=== PATIENT | female | born 1935 | race Caucasian/White ===

== ENCOUNTER 2016-09-10 10:34 | Observation (INO) | payer BC, OTHER ==
[~2016-09-10] VITALS: Ht 167.6 cm; Wt 60.5 kg
[~2016-09-10 10:34] MED LIST: ASPI-435 PO; ATOR-22 PO; CHOL100010 PO; ESTR1CRE PV; METO25TA56 PO; MULT-884 PO; NTRGSL/4 UT; NXM/40 PO; [UNRECOGNIZED DRUG - OTHER] OPB
[2016-09-10] MEDS ORDERED: NITROGLYCERIN OINT 2% 1GM PACKET EXT ONE (11:15)
[2016-09-10 11:23] LABS: BASO % 0.8 %; BASO ABS # 0.04 K/uL (0-0.2); COMPLETE YES; EOS % 4.3 %; HEMATOCRIT 42.2 % (37-47); IG% 0.2 %; LYMPH % 25.4 %; LYMPH ABS # 1.31 K/uL (1.2-3.4); MEAN CELL VOLUME 91.5 fL (80-100); MEAN CORPUSCULAR HEMOGLOBIN 31.2 pg (25-34); MEAN CORPUSCULAR HGB CONC 34.1 g/dl (32-36); MEAN PLATELET VOLUME 12.5 fL (7.4-10.4); MONO % 10.3 %; PLATELET COUNT 152 K/uL (130-400); RED BLOOD COUNT 4.61 M/uL (4.2-5.4); WHITE BLOOD COUNT 5.15 K/uL (4.8-10.8)
[2016-09-10 11:30] LABS: CALCIUM 9.5 mg/dl (8.5-10.1); CREATININE 0.63 mg/dl (0.60-1.20)
[2016-09-10 11:32] LABS: INR 1.1 (0.9-1.1); PROTHROMBIN TIME (PATIENT) 11.3 SECONDS (9.0-12.0)
--- NOTE | 2016-09-10 11:48 | DIAGNOSTIC IMAGING REPORT ---
SINGLE VIEW CHEST CLINICAL HISTORY: Atypical chest pain. FINDINGS: 2 AP, portable, upright chest radiographs are compared to study dated 02/27/2016. The examination is degraded by portable technique and patient rotation. The heart is enlarged and there is atherosclerotic calcification of the thoracic aorta. The pulmonary vasculature is noncongested. Emphysema is suspected. Chronic interstitial thickening is similar to previous. No airspace consolidation or large pleural effusion is identified. No pneumothorax is seen. The skeletal structures are osteopenic. Degenerative changes noted throughout the thoracic spine. IMPRESSION: Cardiomegaly and suspect emphysema. There is no acute cardiopulmonary abnormality. Electronically signed by: Sylvester Churchill M.D. 09/10/2016 11:47 AM Dictated Date/Time: 09/10/2016 11:46 AM
[2016-09-10] MEDS ORDERED: AMLO2.5T PO (11:56)
[2016-09-10] MEDS ORDERED: CHOL1000 PO (11:56)
[2016-09-10] MEDS ORDERED: PRMVC PV (11:56)
--- NOTE | 2016-09-10 12:41 | History and Physical ---
History & Physical Date & Time of Service: Sep 10, 2016 at 12:30 Chief Complaint: Chest Pain Primary Care Physician: Stalin Hernandez History of Present Illness Source: patient This is a 81 yo F with PMHx with hyperlipidemia, HTN, CAD, diverticulitis, who presents with chest pain from [facility]. Pt reports she was at an exercise class this morning at 0915 and during this class was lifting a 4lb bar above her head, moving it back and forth when she acutely developed substernal chest pain at ~0945 which lasted about 15 minutes. Pain radiated up her right side of chest and wrapped around to the back of her neck to the base of her head. She has experienced this pain before but notes it wasn't this severe in the past. She left the class and went to see the nurse in [facility] who checked an EKG showing her old LBBB. She admits to nausea at that time during the pain. Denies any shortness of breath, lightheadedness, dizziness or palpitations. The patient was transported to the ED and her pain resolved prior to getting nitro tab. She denies any pain currently. Pt notes this was the second exercise class she has done in the past 6 months due to caring for her . Pt is currently grieving the loss of her who on . She reports feeling anxious about this. Has a good support system in place. In the ED the first troponin is negative, WBC is WNL, BMP is also WNL with mildly low glucose at 63. EKG is showing chronic BBB but is NSR without acute ST abnormalities. Vitals are currently stable with noted labile blood pressures up to 168/83 while at bedside. Past Medical/Surgical History Medical Problems: (1) Diverticulitis Status: Resolved Surgical Problems: (1) H/O cardiac catheterization Status: Resolved (2) History of cholecystectomy Status: Resolved (3) Hx of arthroscopic knee surgery Status: Resolved Family History Patient reports no known family medical history. Social History Smoking Status: Former Smoker Smokeless Tobacco Use: No Alcohol Use: none Drug Use: none Marital Status: Housing status: assisted living ([facility]) Occupational Status: retired Immunizations History of Influenza Vaccine: Yes History of Pneumococcal: Yes Multi-Drug Resistant Organisms History of MDRO: No Allergies Coded Allergies: Clarithromycin (Verified Allergy, Unknown, UNKNOWN, 09/10/16) Codeine (Verified Adverse Reaction, Intermediate, SEVERE NAUSEA, 09/10/16) Home Medications Scheduled Amlodipine (Norvasc), Unknown Dose PO DAILY Aspirin (Aspirin 81), 81 MG PO DAILY Atorvastatin (Lipitor), 20 MG PO DAILY Betaxolol HCl (Betoptic-S), 1 DROP OPB BID Cholecalciferol (Vitamin D3), 1 TAB PO DAILY Esomeprazole Magnesium (Nexium), 40 MG PO DAILY Estrogens, Conjugated (Premarin), 0.5 GM PV 2XWK Metoprolol Tartrate (Lopressor) (Lopressor), 12.5 MG PO BID Multiple Vitamin (Multi Vitamin Daily), 1 TAB PO DAILY Scheduled PRN Nitroglycerin (Nitrostat), 0.4 MG UT PRN PRN for Chest Pain Review of Systems Constitutional: No chills, No fever, No sweats Eyes: No problem reported ENT: No problem reported Respiratory: No dyspnea at rest, No dyspnea on exertion, No shortness of breath Cardiovascular: + chest pain (see HPI) Abdomen: + nausea, No constipation, No diarrhea, No pain, No vomiting Musculoskeletal: No calf pain, No joint pain, No swelling Genitourinary - Female: No dysuria Neurologic: No memory loss, No paralysis, No weakness Endocrine: No fatigue Integumentary: No rash Physical Exam Vital Signs Date Time Temp Pulse Resp B/P Pulse Ox O2 Delivery O2 Flow Rate FiO2 09/10/16 11:47 64 18 135/74 98 Room Air 09/10/16 10:37 71 09/10/16 10:35 98 Room Air 09/10/16 10:35 98 Room Air 09/10/16 10:35 36.9 69 18 159/73 98 Room Air General Appearance: WD/WN, no apparent distress, + thin Head: normocephalic, atraumatic Eyes: PERRL, EOMI ENT: hearing grossly normal, pharynx normal Neck: supple, no JVD Respiratory/Chest: lungs clear, normal breath sounds, no respiratory distress, no accessory muscle use, + pertinent finding (on room air) Cardiovascular: regular rate, rhythm, no JVD, normal peripheral pulses Abdomen/GI: normal bowel sounds, non tender, soft Back: normal inspection Extremities/Musculoskelatal: normal inspection, no calf tenderness, no pedal edema Neurologic/Psych: alert, normal mood/affect, oriented x 3 Skin: normal color, warm/dry Diagnostics Laboratory Results Results Past 24 Hours Test 09/10/16 10:20 09/10/16 11:16 Range/Units White Blood Count 5.15 4.8-10.8 K/uL Red Blood Count 4.61 4.2-5.4 M/uL Hemoglobin 14.4 12.0-16.0 g/dL Hematocrit 42.2 37-47 % Mean Corpuscular Volume 91.5 80-100 fL Mean Corpuscular Hemoglobin 31.2 25-34 pg Mean Corpuscular Hemoglobin Concent 34.1 32-36 g/dl Platelet Count 152 130-400 K/uL Mean Platelet Volume 12.5 7.4-10.4 fL Neutrophils (%) (Auto) 59.0 % Lymphocytes (%) (Auto) 25.4 % Monocytes (%) (Auto) 10.3 % Eosinophils (%) (Auto) 4.3 % Basophils (%) (Auto) 0.8 % Neutrophils # (Auto) 3.04 1.4-6.5 K/uL Lymphocytes # (Auto) 1.31 1.2-3.4 K/uL Monocytes # (Auto) 0.53 0.11-0.59 K/uL Eosinophils # (Auto) 0.22 0-0.5 K/uL Basophils # (Auto) 0.04 0-0.2 K/uL RDW Standard Deviation 42.5 36.4-46.3 fL RDW Coefficient of Variation 12.7 11.5-14.5 % Immature Granulocyte % (Auto) 0.2 % Immature Granulocyte # (Auto) 0.01 0.00-0.02 K/uL Prothrombin Time 11.3 9.0-12.0 SECONDS Prothromb Time International Ratio 1.1 0.9-1.1 Activated Partial Thromboplast Time 26.6 21.0-31.0 SECONDS Partial Thromboplastin Ratio 1.0 Sodium Level 143 136-145 mmol/L Potassium Level 4.0 3.5-5.1 mmol/L Chloride Level 105 98-107 mmol/L Carbon Dioxide Level 31 21-32 mmol/L Anion Gap 7.0 3-11 mmol/L Blood Urea Nitrogen 23 7-18 mg/dl Creatinine 0.63 0.60-1.20 mg/dl Est Creatinine Clear Calc Drug Dose 63.3 ml/min Estimated GFR () 96.1 Estimated GFR (Non- 82.9 BUN/Creatinine Ratio 37.0 10-20 Random Glucose 65 70-99 mg/dl Calcium Level 9.5 8.5-10.1 mg/dl Bedside Troponin I 0.000 0-0.045 ng/ml Diagnostic Radiology SINGLE VIEW CHEST CLINICAL HISTORY: Atypical chest pain. FINDINGS: 2 AP, portable, upright chest radiographs are compared to study dated 02/27/2016. The examination is degraded by portable technique and patient rotation. The heart is enlarged and there is atherosclerotic calcification of the thoracic aorta. The pulmonary vasculature is noncongested. Emphysema is suspected. Chronic interstitial thickening is similar to previous. No airspace consolidation or large pleural effusion is identified. No pneumothorax is seen. The skeletal structures are osteopenic. Degenerative changes noted throughout the thoracic spine. IMPRESSION: Cardiomegaly and suspect emphysema. There is no acute cardiopulmonary abnormality. Electronically signed by: Sylvester Churchill M.D. 09/10/2016 11:47 AM Dictated Date/Time: 09/10/2016 11:46 AM The status of this report is Signed. EKG Vent. rate 70 BPM UT interval 206 ms QRS duration 156 ms QT/QTc 468/505 ms P-R-T axes 52 -53 100 NSR, Left BBB, no acute ischemic changes or ST wave inversions. Impression Assessment and Plan This is a 81 yo F with PMHx with hyperlipidemia, HTN, CAD, diverticulitis, who presents with chest pain from [facility]. Pt reports she was at an exercise class this morning at 0915 and during this class was lifting a 4lb bar above her head and moving it back and forth when she acutely developed substernal chest pain which lasted about 15 minutes. Chest Pain - Admit for tele Observation - 1st trop is negative, will trend x 2 more sets along with Ckmb - Received records from [facility] regarding last stress echo done on 04/18/16 which showed preserved EF 55-59%, concentric LV,left ventricular diastolic function is mildly abnormal (grade 1), moderate jason annular calcification. Mild MR and mild TR. No pulmonary hypertension. Mild aortic valve sclerosis is present. - Follows with Dr. Muir as an outpt every 6 months - Had CABG done in the 1980s for chest pain which was found to be due to gallbladder issues - pt is s/p cholecystectomy. No stents were placed. - Pain resolved after 15 minutes, got a nitro tablet AFTER her pain resolved. Pain is not reproducible on exam. Pt is not currently complaining of chest pain. 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 The patient has been followed for labile BP as an outpatient, so here this is not necessarily something new. Hyperlipidemia - Cont statin daily DVT ppx: OOB, SCDs, lovenox sq CODE STATUS: FULL CODE Disposition: From [facility], likely discharge tomorrow. Addendum at 14:30 Pt is requesting to leave from the ED as she reports feeling fine. Point of Care troponin in process. If negative then ED will discharge. Discussed with Dr. Cook and Dr. Gonzalez who are in agreement with this plan. Level of Care Telemetry Resuscitation Status FULL RESUSCITATION VTE Prophylaxis VTE Risk Assessment Done? Y/N: Yes Risk Level: Low Given or contraindicated: Enoxaparin (Lovenox)SQ, SCD's Reviewed: Pt Seen/Exam by Me, MAGALI Notes, Labs, RAD, EKG History Resident Physician Supervision Note: I interviewed and examined the patient. Discussed with VINCE Trinidad and agree with findings and plan as documented in the note. Any exceptions or clarifications are listed here: Agree with above HPI and history as reconfirmed with pt. CP was "piercing" in nature and lasted 15 min. No associated symptoms. Currently with no CP but feels anxious and feels fine. I think she could be sent home but could stay for observation to ensure no further chest pain as was a bit atypical in that it went away as she was continuing to exert herself while walking to the RN at [facility]. All labs/rads/ECG personally viewed. Vitals reviewed NAD, AAOx3 Anicteric sclerae RRR no mgr nl S1S2, no carotid bruits No neck tenderness and with FROM of neck No ttp of chest wall, no reproducible pain with raising arms above shoulders CTAB no wcr Abd soft NT ND +BS Ext no edema, noc doretha tenderness, 2+ DP pulses Skin no rashes A/P: 81 yo female with a h/o HTN, dyslipidemia, ?CAD listed in records from Cardiology but NO h/o CABG as above (had cardiac cath done decades ago after having an abnl stress test), here with atypical CP. -rule out with serial troponins -observe on tele -Consult her Court Registry Officer for furher recommendations but just had stress ECHO 2015 that was normal -continue home meds and adjust if BP remains elevated -expect dc to home tomorrow Lovenox for DVT proph Documented By: Maya Cook
[2016-09-10] MEDS ORDERED: NITROGLYCERIN 0.4 MG SL PER TAB CHARGE SL PRN (14:00)
[2016-09-10] MEDS ORDERED: ONDANSETRON INJ 2 MG/ML 2 ML VIAL IV PRN (14:00)
[2016-09-10] MEDS ORDERED: ACETAMINOPHEN 325 MG TAB PO PRN (14:00)
[2016-09-10] MEDS ORDERED: POLYETHYLENE (MIRALAX) 17 GM PACK PO PRN (14:00)
[2016-09-10] MEDS ORDERED: NITROGLYCERIN 0.4 MG SL PER TAB CHARGE UT PRN (14:00)
[2016-09-10] MEDS ORDERED: ENOXAPARIN 30 MG/0.3 ML SYR SQ SCH ×2 (14:15→21:00)
[2016-09-10 14:34] VITALS: O2SAT 98; Ht 167.6 cm; Wt 60.5 kg
[2016-09-10] MEDS ORDERED: IV FLUIDS COMPLETED PRN (14:45)
[2016-09-10 17:42] VITALS: BP 147/67; PULSE 80; TEMP 36.7; O2SAT 94
--- NOTE | 2016-09-10 18:51 | EMERGENCY ROOM VISIT NOTE ---
History Report prepared by Elli: Gilma Cowart Under the Supervision of: Dr. Diallo Gonzalez M.D. First contact with patient: 11:06 Chief Complaint: CHEST PAIN Stated Complaint: CHEST PAIN Nursing Triage Summary: pt to room b2 via als from [facility]. pt reports she was exercising around 0945 and had a sudden onset of sharp substernal CP that radiated to right side of head, back, neck, face. pt denies hx of PA. pt takes ASA 81mg every other day. upon arrival pt reports that CP has been alleviated. denies any other complaints or symptoms. pt in no apparent distress. pt on metoprolol, and a statin. History of Present Illness The patient is an 81 year old female who presents to the Emergency Room via ALS from [facility] with complaints of resolved chest pain that started around 0945 this morning while exercising. She describes this as a sharp, "squeezing", pain that radiated up to the right side of her head. This lasted for about 15 minutes. Associated symptoms include nausea. The patient reports experiencing chest pain similar to this episode in the past. She mentions having a stress test performed a few years ago which was positive. She then had a cardiac catheterization but did not have any intervention done at that time. The patient takes ASA 81 mg every other day. She denies any additional symptoms including shortness of breath. She does mention that she recently lost her so she has been under a great deal of stress lately. She does state that her chest pain seems to be coming back now. Source of History: patient Onset: 0945 this morning Position: chest Quality: sharp, other ("squeezing") Timing: resolved Modifying Factors (Worsening): other (none) Associated Symptoms: + nausea, No SOB Review of Systems See HPI for pertinent positives & negatives. A total of 10 systems reviewed and were otherwise negative. Past Medical & Surgical Medical Problems: (1) Chest pain (2) Diverticulitis Surgical Problems: (1) H/O cardiac catheterization (2) History of cholecystectomy (3) Hx of arthroscopic knee surgery Family History Patient reports no known family medical history. Social History Smoking Status: Former Smoker Marital Status: single Housing Status: other Occupation Status: employed Current/Historical Medications Scheduled Amlodipine (Norvasc), Unknown Dose PO DAILY Aspirin (Aspirin 81), 81 MG PO DAILY Atorvastatin (Lipitor), 20 MG PO DAILY Betaxolol HCl (Betoptic-S), 1 DROP OPB BID Cholecalciferol (Vitamin D3), 1 TAB PO DAILY Esomeprazole Magnesium (Nexium), 40 MG PO DAILY Estrogens, Conjugated (Premarin), 0.5 GM PV 2XWK Metoprolol Tartrate (Lopressor) (Lopressor), 12.5 MG PO BID Multiple Vitamin (Multi Vitamin Daily), 1 TAB PO DAILY Scheduled PRN Nitroglycerin (Nitrostat), 0.4 MG UT PRN PRN for Chest Pain Allergies Coded Allergies: Clarithromycin (Verified Allergy, Unknown, UNKNOWN, 09/10/16) Codeine (Verified Adverse Reaction, Intermediate, SEVERE NAUSEA, 09/10/16) Physical Exam Vital Signs Date Time Temp Pulse Resp B/P Pulse Ox O2 Delivery O2 Flow Rate FiO2 09/10/16 13:35 62 09/10/16 12:55 64 15 168/83 98 Room Air 09/10/16 11:47 64 18 135/74 98 Room Air 09/10/16 10:37 71 09/10/16 10:35 98 Room Air 09/10/16 10:35 98 Room Air 09/10/16 10:35 36.9 69 18 159/73 98 Room Air Physical Exam Constitutional: Vital signs reviewed. Eyes: Pupils are equal round reactive to light. Conjunctiva are noninjected. ENT: Pharynx is clear without erythema or exudate. Mucous membranes are moist. Neck supple without meningeal signs. Respiratory: Clear to auscultation bilaterally. Breath sounds are equal bilaterally. Cardiovascular: Regular rate and rhythm. No rubs or gallops. GI: Soft, nondistended and nontender. Bowel sounds are present. Musculoskeletal: No peripheral edema. Integumentary: No cyanosis. Neurological: The patient is awake and alert. No focal deficits. Psychiatric: Normal affect. Medical Decision & Procedures ER Provider Diagnostic Interpretation: X-ray results as stated below per interpretation by me and the radiologist: SINGLE VIEW CHEST CLINICAL HISTORY: Atypical chest pain. FINDINGS: 2 AP, portable, upright chest radiographs are compared to study dated 02/27/2016. The examination is degraded by portable technique and patient rotation. The heart is enlarged and there is atherosclerotic calcification of the thoracic aorta. The pulmonary vasculature is noncongested. Emphysema is suspected. Chronic interstitial thickening is similar to previous. No airspace consolidation or large pleural effusion is identified. No pneumothorax is seen. The skeletal structures are osteopenic. Degenerative changes noted throughout the thoracic spine. IMPRESSION: Cardiomegaly and suspect emphysema. There is no acute cardiopulmonary abnormality. Electronically signed by: Sylvester Churchill M.D. 09/10/2016 11:47 AM Dictated Date/Time: 09/10/2016 11:46 AM Laboratory Results 09/10/16 10:20 Red Blood Count 4.61, Mean Corpuscular Volume 91.5, Mean Corpuscular Hemoglobin 31.2, Mean Corpuscular Hemoglobin Concent 34.1, Mean Platelet Volume 12.5, Neutrophils (%) (Auto) 59.0, Lymphocytes (%) (Auto) 25.4, Monocytes (%) (Auto) 10.3, Eosinophils (%) (Auto) 4.3, Basophils (%) (Auto) 0.8, Neutrophils # (Auto ) 3.04, Lymphocytes # (Auto) 1.31, Monocytes # (Auto) 0.53, Eosinophils # (Auto ) 0.22, Basophils # (Auto) 0.04 09/10/16 10:20 Test 09/10/16 10:20 09/10/16 11:16 White Blood Count 5.15 K/uL (4.8-10.8) Red Blood Count 4.61 M/uL (4.2-5.4) Hemoglobin 14.4 g/dL (12.0-16.0) Hematocrit 42.2 % (37-47) Mean Corpuscular Volume 91.5 fL (80-100) Mean Corpuscular Hemoglobin 31.2 pg (25-34) Mean Corpuscular Hemoglobin Concent 34.1 g/dl (32-36) Platelet Count 152 K/uL (130-400) Mean Platelet Volume 12.5 fL (7.4-10.4) Neutrophils (%) (Auto) 59.0 % Lymphocytes (%) (Auto) 25.4 % Monocytes (%) (Auto) 10.3 % Eosinophils (%) (Auto) 4.3 % Basophils (%) (Auto) 0.8 % Neutrophils # (Auto) 3.04 K/uL (1.4-6.5) Lymphocytes # (Auto) 1.31 K/uL (1.2-3.4) Monocytes # (Auto) 0.53 K/uL (0.11-0.59) Eosinophils # (Auto) 0.22 K/uL (0-0.5) Basophils # (Auto) 0.04 K/uL (0-0.2) RDW Standard Deviation 42.5 fL (36.4-46.3) RDW Coefficient of Variation 12.7 % (11.5-14.5) Immature Granulocyte % (Auto) 0.2 % Immature Granulocyte # (Auto) 0.01 K/uL (0.00-0.02) Prothrombin Time 11.3 SECONDS (9.0-12.0) Prothromb Time International Ratio 1.1 (0.9-1.1) Activated Partial Thromboplast Time 26.6 SECONDS (21.0-31.0) Partial Thromboplastin Ratio 1.0 Anion Gap 7.0 mmol/L (3-11) Est Creatinine Clear Calc Drug Dose 63.3 ml/min Estimated GFR () 96.1 Estimated GFR (Non- 82.9 BUN/Creatinine Ratio 37.0 (10-20) Calcium Level 9.5 mg/dl (8.5-10.1) Bedside Troponin I 0.000 ng/ml (0-0.045) Laboratory results as reviewed by me. ECG Indication: chest pain Rate (beats per minute): 70 Rhythm: normal sinus Findings: LBBB, no ectopy Comparison ECG Date: September 26, 2005 Change: LBBB is old. ED Course 1110: The patient was evaluated in room B2. A complete history and physical exam was performed. 1115: Nitroglycerin 0.5 inch EXT. 1151: The patient's blood pressure has improved. She is no longer experiencing chest discomfort. Nitro order will be canceled. I discussed the results thus far with the patient. She is agreeable at this time. 1157: I spoke with Ceci Reed (Ivonne) of [facility]. We discussed the patient and her results. The patient will be further evaluated. 1206: The patient will be switched to [facility]'s service. 1216: I spoke with Dr. Yanes of [facility]. We discussed the patient and her results. The patient will be further evaluated by Dr. Yanes. 1240: I discussed the patient's case with Arelis Taylor (IVONNE). She does not believe the patient needs to be hospitalized at this time. I did not feel comfortable sending this patient home given her symptoms. Dr. Cook ([facility]) will evaluate the patient. 1300: I talked to B2 and explained the reasons I wish to keep her. We will be repeating the POC troponin and waiting for Dr. Cook to evaluate. 1500: Dr. Cook will evaluate the patient for further management and care. Medical Decision This is an 81-year-old female presents with chest pain. Differential diagnosis includes unstable angina, PA, GERD, anxiety, pneumonia. I did perform a limited focused review of portions of the patient's old chart on the electronic medical record. The patient has had no recent pertinent visits to this hospital. I did evaluate the patient as noted above. The patient is presenting with chest pain which she describes as a squeezing pain in the right side of her chest rating up to her neck. It started while she was doing some mild exercise. She also states she has been under significant stress due to her recently passing away. She currently complains of some mild squeezing pain that has recently come back while in the emergency department. IV access was established. The patient was placed on a continuous vehicle monitor technician. She is slightly hypertensive. I did order nitroglycerin paste for the patient but when the nurse went to put it on her she stated that her chest pain had resolved and her blood pressure was improved so I canceled the order. I did order and personally review the patient's 12-lead EKG and chest x-ray as described above. I did order and review the patient's blood work as noted in the electronic medical record. Her troponin is negative. I did reassess the patient. She is not having any chest pain at this time. Due to the description of her chest discomfort, her risk factors and its onset with exertion I did feel she should be hospitalized for further evaluation or repeat cardiac enzymes. I did discuss case with the hospitalist and correctional case records supervisor. Consults Time Called: 1150 Consulting Physician: Ceci Snow) Returned Call: 1157 I spoke with Ceci Snow) of [facility]. We discussed the patient and her results. The patient will be further evaluated. Additional Consults: Time Called: 1206 Consulted Physician: Dr. Yanes ([facility]) Returned Call: 1212 Additional Comments: I spoke with Dr. Yanes of [facility]. We discussed the patient and her results. The patient will be further evaluated by Dr. Yanes. Impression Primary Impression: Exertional chest pain Scribe Attestation The scribe's documentation has been prepared under my direct and personally reviewed by me in its entirety. I confirm that the note above accurately reflects all work, treatment, procedures, and medical decision making performed by me. Departure Information Dispostion Being Evaluated By Hospitalist Referrals Stalin Hernandez (PCP) Patient Instructions My [facility]
[2016-09-10] MEDS: BETAXOLOL HCL 0.25% OPB SCH (19:28)
[2016-09-10] MEDS: METOPROLOL TARTRATE 25 MG TAB PO SCH (19:30)
[2016-09-10 19:35] VITALS: BP 147/70; PULSE 65; TEMP 36.8; O2SAT 94
[2016-09-10 23:59] VITALS: BP 137/71; PULSE 63; TEMP 36.7; O2SAT 97
[2016-09-11 05:02] VITALS: BP 141/69; PULSE 76; TEMP 36.4; O2SAT 95
[2016-09-11 07:45] VITALS: BP 135/74; PULSE 75; TEMP 36.8; O2SAT 96
[2016-09-11 08:00] VITALS: O2SAT 96
[2016-09-11] MEDS ORDERED: CHOLECALCIFEROL 1000 INTER.UNIT TAB PO SCH (09:00)
[2016-09-11] MEDS ORDERED: AMLODIPINE BESYLATE 5 MG TAB PO SCH (09:00)
[2016-09-11] MEDS ORDERED: ATORVASTATIN 20 MG TAB PO SCH (09:00)
[2016-09-11] MEDS ORDERED: ASPIRIN 81 MG ECTAB PO SCH ×2 (09:00)
[2016-09-11] MEDS ORDERED: MULTIVITAMIN TAB PO SCH (09:00)
[2016-09-11 09:40] VITALS: BP 130/60; PULSE 72
[2016-09-11] MEDS: METOPROLOL TARTRATE 25 MG TAB PO SCH (09:41)
[2016-09-11] MEDS: BETAXOLOL HCL 0.25% OPB SCH (09:42)
--- NOTE | 2016-09-11 11:43 | Cardiology Consultation ---
Cardiology Consultation Cardiology Consultation: Date: 09/11/16 Attending Shim Plug Cutter: Dr. Maxwell Requesting Provider: Dr. Cook HPI: Patient is an 81-year-old female who follows with Dr. Alena Muir of [facility] cardiology on a routine basis for history of non obstructive CAD per remote cath in 2002, with most recent exercise stress echo in 03/2016, negative for ischemia at 83% MPHR (prior intolerance of lexiscan nuclear studies noted), chronic LBBB, labile hypertension, and dyslipidemia. Over the last year she has been primary president [place] of her ill . Unfortunately he in July 2016 of extended illness. She notes significant stress and anxiety over the last years time. Yesterday she decided to go back to her exercise class at [facility] where she resides. She was lifting 4 lb weights over her head and felt sudden onset stabbing substernal chest pain that radiated to neck and back of her head. She stopped exercising and went to nurse/healthcare clinic onsite. They did EKG which demonstrated LBBB (chronic) and sent her to ER due to symptoms. She admits to feeling nauseous while walking to the health clinic but no worsening symptoms. She denied SOB or palpitations at the time. She said symptoms resolved spontaneously after 10-15 minutes. By the time she reached ER she had no pain or recurrent symptoms. EKG was completed which demonstrated NSR with LBBB, chronic and unchanged. Cardiac enzymes were unremarkable. Patient was admitted for observation. AT time of consult, patient sitting up in chair feeling well. Anxious to go home. Echo pending. Denies recurrent symptoms since admission. She denies recent chest pain or worsening dyspnea. She notes mild dyspnea when climbing a hill every night from dining cronin to her apartment, but this is unchanged and symptoms resolve quickly. No exertional chest pain until this episode yesterday. Review of Systems: See HPI for pertinent positives. All other 10 point review of systems is negative. PMH: 1. LBBB 2. Mild non obstructive coronary disease per remote cath in 2002 3. Intolerance to lexiscan nuclear stress test 4. Non ischemic exercise stress echo 03/2016 5. Anxiety 6. GERD 7. Hypertension Surgical History: KNEE ARTHROSCOPY, DIAGNOSTIC 1994 Right REMOVE TONSILS & ADENOIDS, UNDER 10 age 4 SIGMOIDOSCOPY, DIAGNOSTIC 02/18/99 Normal - Dr Zeke saini 5 yrs CYSTOSCOPY [facility] BONE DENSITY PERIPH-NON [facility] 01/21/00 Normal - q 3 yrs LAPAROSCOPY; CHOLECYSTECTOMY 12/01/02 Cholecystectomy, Laparoscopic CATARACT SURGERY,COMPLEX Social History: Recently . Lives at [facility]. Remote tobacco abuse. No alcohol use. Family History: non contributory due to advanced age ALLERGIES: Review of patient's allergies indicates: -- Morphine And Related --Clarithromycin Reported Home Medications Medications Dose Route/Sig Max Daily Dose Days Date Category Norvasc (Amlodipine Besylate) 2.5 Mg Tab Unknown Dose PO DAILY 09/10/16 Reported Premarin (Estrogens, Conjugated) 14 Appln/30 Gm Cr 0.5 Gm PV 2XWK 09/10/16 Reported Vitamin D3 (Cholecalciferol) 1,000 Unit Tab 1 Tab PO DAILY 09/10/16 Reported Aspirin 81 (Aspirin) 81 Mg Tab 81 Mg PO DAILY 02/27/16 Reported Betoptic-S (Betaxolol HCl) 0.25 % Jocelyn 1 Drop OPB BID 02/27/16 Reported Nexium (Esomeprazole Magnesium) 40 Mg Cap 40 Mg PO DAILY 02/27/16 Reported Lopressor (Metoprolol Tartrate) 25 Mg Tab 12.5 Mg PO BID 02/27/16 Reported Lipitor (Atorvastatin Calcium) 20 Mg Tab 20 Mg PO DAILY 02/27/16 Reported Nitrostat (Nitroglycerin) 0.4 Mg Tab 0.4 Mg UT PRN PRN 02/27/16 Reported Multi Vitamin Daily (Multiple Vitamin) 1 Tab Tab 1 Tab PO DAILY 02/27/16 Reported PHYSICAL EXAMINATION: Last 8 Hrs Date Time Temp Pulse Resp B/P Pulse Ox O2 Delivery O2 Flow Rate FiO2 09/11/16 07:45 36.8 75 16 135/74 96 Room Air 09/11/16 05:02 36.4 76 20 141/69 95 Room Air 09/11/16 04:00 Room Air GEN: A+Ox3. NAD. HEENT exam is normocephalic and atraumatic. Nares without discharge. Throat was clear. Neck was without thyromegaly, lymphadenopathy, jugular venous distention, or bruit. Lungs are clear to auscultation. Cardiovascular exam is regular with a grade I/ systolic murmur. There is no diastolic murmur. Abdomen: Soft, nontender. Extremities are without cyanosis or clubbing. There is no peripheral edema. DATA: EKG on admission: Normal sinus rhythm Possible Left atrial enlargement Left axis deviation Left bundle branch block Abnormal ECG When compared with ECG of 26-SEP-2005 13:31, No significant change was found Chest xray on admission: IMPRESSION: Cardiomegaly and suspect emphysema. There is no acute cardiopulmonary abnormality. Telemetry reviewed - NSR, rare PVC, PAC. No concerning arrhythmias. Exercise Stress echo completed at in Mar 2016, per interpretation Interpretation Summary No evidence of inducible ischemia 83% of the maximal, age predicted target heart rate. Exercise stopped due to shortness of breath and chest tightness. Uninterpretable Stress EKG due to repolarization changes of Left bundle branch block. Exercise capacity is below average . Resting Study: The qualitative LV ejection fraction is 55-59% (normal). The LV wall thickness is moderately increased (concentric). The left ventricular diastolic function is mildly abnormal (grade I). There is moderate mitral annular calcification. Mild mitral regurgitation is present. Mild tricuspid regurgitation is present. There is no evidence of pulmonary hypertension Mild aortic valve sclerosis is present. Stress nuclear imaging, September 2015, demonstrated equivocal findings. Inferolateral abnormality not completely excluded in setting of acute adverse reaction to drug therapy. ASSESSMENT: 1. Chest pain, resolved and without recurrence -EKG non diagnostic and unchanged with LBBB -Negative cardiac enzymes x3 -echocardiogram pending -negative exercise stress test in 03/2016 -discussed with patient. She is anxious to go home. IF echo is unremarkable, recommend discharge and f/u with Dr. Muir as outpatient. 2. Hypertension -continue metoprolol and amlodipine. Case discussed with Dr. Maxwell. Will follow. (Teresita Ludwig PA-C) CARDIOLOGY ATTENDING ADDENDUM: The patient was seen and personally examined. Agree with Teresita Ludwig PA-C's findings and plans as documented above. Pt. cardiac markers are negative. I just reviewed her echo and there is nothing new. I think she can be d/c to outpatient follow-up with Dr. Muir. (Aime Maxwell, )
--- NOTE | 2016-09-11 13:31 | Discharge Instructions ---
Discharge Instructions Admission Reason for Admission: Chest Pain (Arleen Sparks PA-C) Discharge Discharge Diagnosis / Problem: Non-Cardiac Chest Pain (Arlene Sparks PA-C) Discharge Goals Goal(s): Decrease discomfort, Improve function, Increase independence (Arlene Sparks PA-C) Activity Recommendations Activity Level: Up Ad Priscilla . (Arlene Sparks PA-C) Additional Information Patient informed of condition: Yes Advance Directives: Yes DNR: No Level of Care: Other Communicable Disease: No Prognosis: Improving Blancas Catheter: No (Arlene Sparks PA-C) Instructions / Follow-Up Instructions / Follow-Up Chest Pain: - While admitted we tested your blood for elevations in cardiac enzymes that would suggest damage to your heart. These enzymes are negative and does not appear that your heart was the cause of this pain. - You underwent an echocardiogram that looks at the function of your heart. There were no abnormalities seen on this test. - Your heart rhythm overnight did not show any abnormal heart rhythm while you were monitored. - Continue taking your home medication as prescribed. We did not make any dosage adjustments or add any medications at this time. - This as well may be heartburn related as you mentioned it has mimicked your heartburn in the past. You have not had a reoccurrence of this chest pain since admission. - As well, you do have a prescription for nitroglycerin to take. If you do have chest pain take this medication and call 911. You may use this medication every 5 minutes as needed Follow-Up: - Please follow-up with your customer service and sales consultant Dr. Muir. They will contact you to set up your next appointment Reasons to Return: - Please return to the hospital if you do develop further chest pain or pain that radiates into the arms or jaw. (Arlene Sparks PA-C) Current Hospital Diet Patient's current hospital diet: AHA Diet (Heart Healthy) (Arlene Sparks PA-C) Discharge Diet Recommended Diet: AHA Diet (Heart Healthy) (Arlene Sparks PA-C) Pending Studies Studies pending at discharge: no (Arlene Sparks PA-C) Physician Orders On Transfer POLST Discussion: Not Applicable (Arlene Sparks PA-C) Medical Emergencies . Who to Call and When: Medical Emergencies: If at any time you feel your situation is an emergency, please call 911 immediately. . (Arlene Sparks PA-C) Non-Emergent Contact Non-Emergency issues call your: Primary Care Provider Call Non-Emergent contact if: you have a fever, your pain is concerning you, you have any medication questions . (Arlene Sparks PA-C) . "Provider Documentation" section prepared by Arlene Sparks. (Arlene Sparks, CARLINE) Core Measure Problem Core Measures: None (Arlene Sparks PA-C)
--- NOTE | 2016-09-11 14:01 | ECHOCARDIOGRAM REPORT ---
*NOTICE TO RECEIVING DEMOCRAT AGENCY This information is strictly Confidential and protected under [place] law. [place] law prohibits you from making any further disclosure of this information unless further disclosure is expressly permitted by the written consent of the person to whom it pertains or is authorized by law. A general authorization for the release of medical or other information is not sufficient for this purpose. Hospital accepts no responsibility if the information is made available to any other person, INCLUDING THE PATIENT. Interpretation Summary * Name: BRYNN TENA Study Date: 09/11/2016 01:35 PM BP: 130/60 mmHg * Patient Location: [facility]\S\N286\S\2 HR: 71 * : 1935 (M/d/yyy) Gender: Female Height: 66 in * Age: 81 yrs Ethnicity: [place] Weight: 133 lb * Ordering Physician: Teresita Ludwig * Referring Physician: Self, Referred * Performed By: Melanie Lara RCS * * Reason For Study: CHEST PAIN * BSA: 1.7 m2 * -- Conclusions -- * The left ventricle is normal in size. * There is moderate concentric left ventricular hypertrophy. * Left ventricular systolic function is normal. * Ejection Fraction = 50-55%. * The left ventricular wall motion is normal. * Grade I diastolic dysfunction, (abnormal relaxation pattern). * The left atrium is moderately dilated. * The right ventricular systolic function is normal. * The right atrium is mild to moderately dilated. * There is moderate mitral regurgitation. Procedure Details * A complete two-dimensional transthoracic echocardiogram was performed (2D, M-mode, Doppler and color flow Doppler). Left Ventricle * The left ventricle is normal in size. * There is moderate concentric left ventricular hypertrophy. * Ejection Fraction = 50-55%. * Left ventricular systolic function is normal. * The left ventricular wall motion is normal. Right Ventricle * The right ventricle is normal size. * The right ventricular systolic function is normal. Atria * The left atrium is moderately dilated. * The right atrium is mild to moderately dilated. * The interatrial septum is intact with no evidence for an atrial septal defect. Mitral Valve * There is moderate mitral annular calcification. * The mitral valve leaflets appear thickened, but open well. * There is moderate mitral regurgitation. Tricuspid Valve * The tricuspid valve anatomy is normal. * There is trace tricuspid regurgitation. Aortic Valve * The aortic valve is tricuspid. The leaflet thickness if normal. There is no aortic stenosis, and no significant insufficiency. * The aortic valve opens well. * There is no significant aortic regurgitation. Great Vessels * The aortic root and proximal ascending aorta are normal sized. Pericardium/Pleural * There is no pericardial effusion. Left Ventricular Diastolic Function * Grade I diastolic dysfunction, (abnormal relaxation pattern). MMode 2D Measurements and Calculations IVSd 1.3 cm IVSs 1.8 cm LVIDd 3.4 cm LVIDs 2.4 cm LVPWd 1.5 cm LVPWs 1.6 cm IVS/LVPW 0.88 FS 29.0 % EDV(Teich) 48.8 ml ESV(Teich) 21.1 ml EF(Teich) 56.8 % EDV(cubed) 40.8 ml ESV(cubed) 14.6 ml EF(cubed) 64.1 % % IVS thick 43.7 % % LVPW thick 9.7 % LV mass(C)d 162.9 grams LV mass(C)dI 96.8 grams/m\S\2 LV mass(C)s 157.9 grams LV mass(C)sI 93.9 grams/m\S\2 SV(Teich) 27.7 ml SI(Teich) 16.5 ml/m\S\2 SV(cubed) 26.1 ml SI(cubed) 15.5 ml/m\S\2 Ao root diam 3.4 cm Ao root area 9.0 cm\S\2 ACS 2.0 cm LA dimension 3.9 cm LA/Ao 1.2 LVOT diam 2.0 cm LVOT area 3.2 cm\S\2 LVAd ap4 27.2 cm\S\2 LVLd ap4 7.2 cm EDV(MOD-sp4) 82.6 ml EDV(sp4-el) 87.0 ml LVAs ap4 15.3 cm\S\2 LVLs ap4 5.8 cm ESV(MOD-sp4) 33.1 ml ESV(sp4-el) 34.6 ml EF(MOD-sp4) 59.9 % EF(sp4-el) 60.2 % LVAd ap2 24.8 cm\S\2 LVLd ap2 6.7 cm EDV(MOD-sp2) 76.5 ml EDV(sp2-el) 78.4 ml LVAs ap2 15.5 cm\S\2 LVLs ap2 6.3 cm ESV(MOD-sp2) 33.1 ml ESV(sp2-el) 32.4 ml EF(MOD-sp2) 56.7 % EF(sp2-el) 58.7 % LVLd %diff -8.89 % EDV(MOD-bp) 81.0 ml LVLs %diff 8.7 % ESV(MOD-bp) 33.5 ml EF(MOD-bp) 58.7 % SV(MOD-sp4) 49.5 ml SI(MOD-sp4) 29.4 ml/m\S\2 SV(MOD-sp2) 43.3 ml SI(MOD-sp2) 25.8 ml/m\S\2 SV(MOD-bp) 47.5 ml SI(MOD-bp) 28.3 ml/m\S\2 SV(sp4-el) 52.3 ml SI(sp4-el) 31.1 ml/m\S\2 SV(sp2-el) 46.0 ml SI(sp2-el) 27.3 ml/m\S\2 Doppler Measurements and Calculations MV E max beti 87.9 cm/sec MV A max beti 138.6 cm/sec MV E/A 0.63 MV P1/2t max beti 96.3 cm/sec MV P1/2t 80.5 msec MVA(P1/2t) 2.7 cm\S\2 MV dec slope 350.3 cm/sec\S\2 MV dec time 0.20 sec Ao V2 max 107.9 cm/sec Ao max PG 4.7 mmHg Ao max PG (full) 1.6 mmHg GREG(V,A) 2.6 cm\S\2 GREG(V,D) 2.6 cm\S\2 LV V1 max PG 3.1 mmHg LV V1 max 87.9 cm/sec MR max beti 508.7 cm/sec MR max PG 103.5 mmHg PA V2 max 88.3 cm/sec PA max PG 3.1 mmHg PI max beti 127.1 cm/sec PI max PG 6.5 mmHg PI dec slope 113.0 cm/sec\S\2 PI P1/2t 329.5 msec TR max beti 235.8 cm/sec
[2016-09-11 14:22] VITALS: BP 130/60; PULSE 72; TEMP 36.8; O2SAT 96
--- NOTE | 2016-09-11 15:28 | Discharge Summary ---
Discharge Summary Admission Date: Sep 10, 2016 at 14:01 Discharge Date: Sep 11, 2016 Discharge Disposition: Personal care Principal Diagnosis: Non-Cardiac Chest Pain Immunizations: Have You Had Influenza Vaccine: Yes History of Pneumococcal: Yes Procedures: 1. Echocardiogram -- EF 50-55% -- L and R mild-moderate atrial enlargement -- Moderate mitral regurgitation -- Grade I Diastolic Dysfunction Consultations: 1. Cardiology - Dr. Muir (Arlene Sparks, PA-C) Medication Reconciliation Continued Medications: Amlodipine (Norvasc) 2.5 Mg Tab Unknown Dose PO DAILY, TAB Aspirin (Aspirin 81) 81 Mg Tab 81 MG PO DAILY Atorvastatin (Lipitor) 20 Mg Tab 20 MG PO DAILY, TAB Betaxolol HCl (Betoptic-S) 0.25 % Jocelyn 1 DROP OPB BID Cholecalciferol (Vitamin D3) 1,000 Unit Tab 1 TAB PO DAILY, TAB 3 Refills Esomeprazole Magnesium (Nexium) 40 Mg Cap 40 MG PO DAILY, CAP Estrogens, Conjugated (Premarin) 14 Appln/30 Gm Cr 0.5 GM PV 2XWK Metoprolol Tartrate (Lopressor) (Lopressor) 25 Mg Tab 12.5 MG PO BID, TAB Multiple Vitamin (Multi Vitamin Daily) 1 Tab Tab 1 TAB PO DAILY Nitroglycerin (Nitrostat) 0.4 Mg Tab 0.4 MG UT PRN PRN for Chest Pain, BTL Discharge Exam Review of Systems: Constitutional: No chills, No fever ENT: No nasal symptoms, No sore throat, No trouble swallowing Respiratory: No cough, No shortness of breath Cardiovascular: No chest pain, No palpitations Abdomen: No constipation, No diarrhea, No nausea, No pain, No vomiting Musculoskeletal: No calf pain, No swelling Genitourinary - Female: No dysuria Neurologic: No vertigo, No weakness Endocrine: No fatigue Hematologic / Lymphatic: No abnormal bleeding/bruising, No clotting problems Integumentary: No rash Physical Exam: General Appearance: WD/WN, no apparent distress, + thin Eyes: sclerae normal ENT: hearing grossly normal Neck: supple, no JVD, trachea midline Respiratory/Chest: lungs clear, normal breath sounds, no respiratory distress, no accessory muscle use Cardiovascular: regular rate, rhythm, no gallop, no murmur Abdomen / GI: normal bowel sounds, non tender, soft Extremities: no calf tenderness, no pedal edema Neurologic/Psychiatric: alert, oriented x 3 Skin: normal color, warm/dry (Arlene Sparks PA-C) Hospital Course ADMISSION: This is a 81 yo F with PMHx with hyperlipidemia, HTN, CAD, diverticulitis, who presents with chest pain from [facility]. Pt reports she was at an exercise class this morning at 0915 and during this class was lifting a 4lb bar above her head, moving it back and forth when she acutely developed substernal chest pain at ~0945 which lasted about 15 minutes. Pain radiated up her right side of chest and wrapped around to the back of her neck to the base of her head. She has experienced this pain before but notes it wasn' t this severe in the past. She left the class and went to see the nurse in [facility] who checked an EKG showing her old LBBB. She admits to nausea at that time during the pain. Denies any shortness of breath, lightheadedness, dizziness or palpitations. The patient was transported to the ED and her pain resolved prior to getting nitro tab. She denies any pain currently. Pt notes this was the second exercise class she has done in the past 6 months due to caring for her . Pt is currently grieving the loss of her who on 08/14/16. She reports feeling anxious about this. Has a good support system in place. In the ED the first troponin is negative, WBC is WNL, BMP is also WNL with mildly low glucose at 63. EKG is showing chronic BBB but is NSR without acute ST abnormalities. Vitals are currently stable with noted labile blood pressures up to 168/83 while at bedside. HOSPITAL COURSE: Ms. Freeman was admitted for rhythm monitoring and enzymes trending. Patient has remained chest pain free during admission. Explains that this pain is very similar to the pain she gets with reflux. She was placed on the telemetry unit with rhythm revealing normal sinus rhythm with rare PVCs and PACs. Cardiac enzymes were trend and remained negative x 3. Blood pressure was monitored and was elevated at 140-160/70-80s. Patient does have routine follow- up as an outpatient with her investigations consultant. Last stress test performed in March 2016 and unremarkable. Consultation was placed to Dr. Muir and she was seen by Teresita Ludwig PA-C. Echocardiogram was ordered which revealed an EF of 50-55% with grade I diastolic dysfunction and mild-moderate R and L atrial enlargement with moderate mitral regurgitation. She is currently chest pain free and verbalizes no acute complaints. She is afebrile and stable and optimal for discharge to [facility]. She will be contacted by Dr. Muir's office for outpatient follow-up, appointment to be determined. Total Time Spent: Greater than 30 minutes This includes examination of the patient, discharge planning, medication reconciliation, and communication with other providers. (Arlene Sparks PA-C) Discharge Instructions Please refer to the electronic Patient Visit Report (Discharge Instructions) for additional information. (Arlene Sparks PA-C) Additional Copies To Stalin Hernandez Reviewed: Pt Seen/Exam by MAGALI Billingsley Notes, Labs, RAD, EKG (Maya Cook MD) History Physician Neuropsychiatrist Supervision Note: I interviewed and examined the patient. Discussed with VINCE Sparks and agree with findings and plan as documented in the note. Any exceptions or clarifications are listed here: Pt with no recurrence of pain, no events on tele, doing very well. ECHO reviewed and no wall motion abnormalities, EF preserved. Vitals reviewed NAD, AAOx3 Anicteric sclerae RRR no mgr nl S1S2, no carotid bruits No neck tenderness and with FROM of neck No ttp of chest wall, no reproducible pain with raising arms above shoulders CTAB no wcr Abd soft NT ND +BS Ext no edema, noc shelter tenderness, 2+ DP pulses Skin no rashes A/P: 81 yo female with a h/o HTN, dyslipidemia, ?CAD listed in records from Cardiology but NO h/o CABG as above (had cardiac cath done decades ago after having an abnl stress test), here with atypical CP. -ruled out with serial troponins being negative -likely MSK or GI related chest pain, no recurrence and stable for discharge to home. Documented By: Maya Cook (Maya Cook MD)
== END 2016-09-11 15:49 | disposition home or self-care (01) ==
LOC: ENRESERVTM → ENRESERVDT → EDBD 10:34 → C.EDB 10:36 → C.MED 14:01
PROVIDERS: ADMIT Family Medicine; ATTEND Family Medicine
DX: R07.89 Other chest pain (principal); I10 Essential (primary) hypertension; E78.5 Hyperlipidemia, unspecified; I44.7 Left bundle-branch block, unspecified; I25.10 Atherosclerotic heart disease of native coronary artery without angina pectoris; K21.9 Gastro-esophageal reflux disease without esophagitis; I34.0 Nonrheumatic mitral (valve) insufficiency; Z88.5 Allergy status to narcotic agent; Z95.1 Presence of aortocoronary bypass graft; Z87.891 Personal history of nicotine dependence; Z79.82 Long term (current) use of aspirin; Z90.49 Acquired absence of other specified parts of digestive tract

== ENCOUNTER → 2016-09-25 | Outpatient (CLI) | payer BC, OTHER ==
[~2016-09-25] MED LIST changes: +AMLO2.5T PO; +CHOL1000 PO; -CHOL100010 PO; -ESTR1CRE PV; +PRMVC PV
--- NOTE | 2016-09-25 15:36 | MAMMOGRAPHY REPORT ---
BILATERAL DIGITAL SCREENING MAMMOGRAM WITH CAD: 09/25/2016 CLINICAL HISTORY: Routine screening. Patient has no complaints. TECHNIQUE: Current study was also evaluated with a Computer Aided Detection (CAD) system. Bilatera l CC and MLO views were obtained. COMPARISON: Comparison is made to exams dated: 08/23/2015 mammogram, 08/01/2014 mammogram, 01/04/2013 m ammogram, 07/15/2012 mammogram, 01/19/2012 mammogram, and 07/14/2011 mammogram - [facility]. BREAST COMPOSITION: The tissue of both breasts is heterogeneously dense, which may obscure small ma sses. FINDINGS: No suspicious masses, calcifications, or areas of architectural distortion are noted in e ither breast. There has been no significant interval change compared to prior exams. Scattered bilat eral benign-appearing calcifications are not significantly changed. IMPRESSION: ACR BI-RADS CATEGORY 2: BENIGN There is no mammographic evidence of malignancy. A 1 year screening mammogram is recommended. The p atient will receive written notification of the results. Approximately 10% of breast cancers are not detected with mammography. A negative mammographic repor t should not delay biopsy if a clinically suggestive mass is present. Anaya Alatorre M.D. /:09/25/2016 14:10:38 Structural Biologist: Javi Hebert M, [facility] letter sent: Normal 1/2 BI-RADS Code: ACR BI-RADS Category 2: Benign
== END ==
LOC: C.MAMM 13:47
PROVIDERS: ATTEND Internal Medicine
DX: Z12.31 Encounter for screening mammogram for malignant neoplasm of breast (principal)

== ENCOUNTER → 2016-10-30 | Outpatient (CLI) | payer BC, OTHER ==
[2016-10-30 09:35] LABS: ALT/SGPT 36 U/L (12-78); BLOOD UREA NITROGEN 14 mg/dl (7-18); BUN/CREATININE RATIO 23.1 (10-20); CALCIUM 8.9 mg/dl (8.5-10.1); CARBON DIOXIDE 33 mmol/L (21-32); CHLORIDE 105 mmol/L (98-107); CHOLESTEROL 153 mg/dl (0-200); CREATININE 0.62 mg/dl (0.60-1.20); GLUCOSE 93 mg/dl (70-99); POTASSIUM 4.1 mmol/L (3.5-5.1); SODIUM 144 mmol/L (136-145); TRIGLYCERIDES 118 mg/dl (0-150); VERY LOW DENSITY LIPOPROT CALC 24 mg/dl
[2016-10-30 09:38] LABS: ALB/GLOB RATIO 1.2 (0.9-2); ALKALINE PHOSPHATASE 62 U/L (45-117); AST/SGOT 21 U/L (15-37); CHOLESTEROL/HDL RATIO 2.5; HDL CHOLESTEROL 61 mg/dl; LDL CHOLESTEROL CALCULATED 68 mg/dl
== END | disposition home or self-care (01) ==
LOC: C.LABFOXMH 08:58
PROVIDERS: ATTEND Internal Medicine
DX: E78.00 Pure hypercholesterolemia, unspecified (principal)

== ENCOUNTER → 2017-02-24 | Outpatient (CLI) | payer BC, OTHER ==
[2017-02-24 11:20] LABS: HEMATOCRIT 40.5 % (37-47); MEAN CELL VOLUME 93.5 fL (80-100); MEAN CORPUSCULAR HEMOGLOBIN 31.2 pg (25-34); MEAN CORPUSCULAR HGB CONC 33.3 g/dl (32-36); PLATELET COUNT 134 K/uL (130-400); RED BLOOD COUNT 4.33 M/uL (4.2-5.4); WHITE BLOOD COUNT 4.33 K/uL (4.8-10.8)
[2017-02-24 11:37] LABS: ALB/GLOB RATIO 1.1 (0.9-2); ALKALINE PHOSPHATASE 54 U/L (45-117); ALT/SGPT 29 U/L (12-78); AST/SGOT 19 U/L (15-37); BLOOD UREA NITROGEN 19 mg/dl (7-18); BUN/CREATININE RATIO 25.2 (10-20); CALCIUM 9.4 mg/dl (8.5-10.1); CARBON DIOXIDE 31 mmol/L (21-32); CHLORIDE 105 mmol/L (98-107); CREATININE 0.75 mg/dl (0.60-1.20); GLUCOSE 109 mg/dl (70-99); POTASSIUM 3.9 mmol/L (3.5-5.1); SODIUM 141 mmol/L (136-145)
== END | disposition home or self-care (01) ==
LOC: C.LABFOXMH 09:49
PROVIDERS: ATTEND Internal Medicine
DX: R41.2 Retrograde amnesia (principal)

== ENCOUNTER → 2017-04-10 | Outpatient (CLI) | payer BC, OTHER ==
--- NOTE | 2017-04-10 12:07 | DIAGNOSTIC IMAGING REPORT ---
L-SPINE MIN 4 VIEWS ROUTINE HISTORY: Pain BACK PAIN COMPARISON: None. FINDINGS: There is no fracture. No subluxation. Considerable degenerative disc change from L4 through S1 minimal reactive] endplate sclerosis. Mild that should scoliosis. No evidence for compression deformity. IMPRESSION: Considerable degenerative disc change L4-S1. Mild scoliosis. No acute process. The above report was generated using voice recognition software. It may contain grammatical, syntax or spelling errors. Electronically signed by: Martínez Godwin M.D. 04/10/2017 12:06 PM Dictated Date/Time: 04/10/2017 12:05 PM
--- NOTE | 2017-04-10 12:23 | DIAGNOSTIC IMAGING REPORT ---
RIGHT PELVIS/UNILATERAL HIP 2-3VIEWS CLINICAL HISTORY: Back pain. COMPARISON: CT of the abdomen and pelvis February 27, 2016. FINDINGS: The sacroiliac joints and symphysis pubis are intact. There is no fracture or suspicious lesion within the pelvis or the hips. There is mild joint space narrowing and moderate osteophytosis of the right hip. IMPRESSION: 1. No acute fracture within the pelvis or hips. 2. 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 Electronically signed by: Clive Givens M.D. 04/10/2017 12:21 PM Dictated Date/Time: 04/10/2017 12:20 PM
== END | disposition home or self-care (01) ==
LOC: C.RAD 11:27
PROVIDERS: ATTEND Internal Medicine Hospice and Palliative Medicine
DX: M25.551 Pain in right hip (principal)

== ENCOUNTER → 2017-09-14 | Outpatient (CLI) | payer BC, OTHER ==
[2017-09-14 08:43] LABS: ALBUMIN 3.3 gm/dl (3.4-5.0); ALT/SGPT 24 U/L (12-78); BLOOD UREA NITROGEN 16 mg/dl (7-18); CARBON DIOXIDE 31 mmol/L (21-32); CHOLESTEROL 146 mg/dl (0-200); GLUCOSE 94 mg/dl (70-99); POTASSIUM 4.1 mmol/L (3.5-5.1); SODIUM 144 mmol/L (136-145)
[2017-09-14 08:54] LABS: ALKALINE PHOSPHATASE 55 U/L (45-117); AST/SGOT 14 U/L (15-37); LDL CHOLESTEROL CALCULATED 71 mg/dl; TOTAL PROTEIN 6.4 gm/dl (6.4-8.2)
== END | disposition home or self-care (01) ==
LOC: C.LABFOXMH 07:58
PROVIDERS: ATTEND Internal Medicine
DX: E78.00 Pure hypercholesterolemia, unspecified (principal)

== ENCOUNTER → 2017-09-28 | Outpatient (CLI) | payer BC, OTHER ==
--- NOTE | 2017-09-28 15:40 | MAMMOGRAPHY REPORT ---
BILATERAL DIGITAL SCREENING MAMMOGRAM TOMOSYNTHESIS WITH CAD: 09/28/2017 CLINICAL HISTORY: Routine screening. Patient has no complaints. TECHNIQUE: Breast tomosynthesis in addition to standard 2D mammography was performed. Current study was also evaluated with a Computer Aided Detection (CAD) system. COMPARISON: Comparison is made to exams dated: 09/25/2016 mammogram, 08/23/2015 mammogram, 08/01/2014 malathi mogram, 07/26/2013 mammogram, 01/04/2013 ultrasound, and 01/04/2013 mammogram - [facility]. BREAST COMPOSITION: The tissue of both breasts is heterogeneously dense, which may obscure small mas ses. FINDINGS: There is a possible area of architectural distortion in the slightly medial, middle one th ird of the right breast, only seen on the 2D CC projection. Although this area effaces on the corres ponding tomosynthesis images, given the prominent nature on the 2D view, additional spot compression tomosynthesis views and possible ultrasound are recommended. There are diffuse bilateral benign-appearing rodlike and rim calcifications. No other suspicious mas s, architectural distortion or cluster of microcalcifications is seen. IMPRESSION: ACR BI-RADS CATEGORY 0: INCOMPLETE EVALUATION: NEED ADDITIONAL IMAGING EVALUATION The possible area of architectural distortion in the slightly medial, middle one third of the right b reast needs additional evaluation. The patient will be called to schedule an appointment. Approximately 10% of breast cancers are not detected with mammography. A negative mammographic report should not delay biopsy if a clinically suggestive mass is present. Cari Munroe M.D. ay/:09/28/2017 14:54:53 Director Of Events: Alesha Benjamin, [facility] letter sent: Addl Imaging 0 BI-RADS Code: ACR BI-RADS Category 0: Incomplete Evaluation: Need Additional Imaging Evaluation
== END | disposition home or self-care (01) ==
LOC: C.MAMM 13:31
PROVIDERS: ATTEND Internal Medicine
DX: Z12.31 Encounter for screening mammogram for malignant neoplasm of breast (principal)

== ENCOUNTER → 2017-10-07 | Outpatient (CLI) | payer BC, OTHER ==
--- NOTE | 2017-10-07 15:37 | MAMMOGRAPHY REPORT ---
UNILATERAL RIGHT DIGITAL DIAGNOSTIC MAMMOGRAM TOMOSYNTHESIS: 10/07/2017 CLINICAL HISTORY: Callback from screening mammogram for possible right breast architectural distortio n. TECHNIQUE: Breast tomosynthesis in addition to standard 2D mammography was performed. Spot compress ion right cc 2D and tomosynthesis images were obtained. COMPARISON: Comparison is made to exams dated: 09/28/2017 mammogram, 09/25/2016 mammogram, 08/23/2015 malathi mogram, 08/01/2014 mammogram, 07/26/2013 mammogram, and 01/04/2013 ultrasound - [facility] nter. BREAST COMPOSITION: The tissue of the right breast is heterogeneously dense, which may obscure small masses. FINDINGS: The previously described possible area of architectural distortion seen within the right me dial breast does not persist on the additional spot compression view. Normal fibroglandular tissue i s seen in this region, without evidence of a suspicious mass or architectural distortion. Findings a re benign and compatible with normal fibroglandular tissue. IMPRESSION: ACR BI-RADS CATEGORY 2: BENIGN The questionable area of architectural distortion in the right medial breast does not persist on the additional views. Findings are benign and compatible with normal fibroglandular tissue. There is no mammographic evidence of malignancy. A 1 year screening mammogram is recommended. The patient has been verbally notified of the results. Approximately 10% of breast cancers are not detected with mammography. A negative mammographic report should not delay biopsy if a clinically suggestive mass is present. Anaya Alatorre M.D. /:10/07/2017 13:36:37 Correction Officer Supervisor: Alesha Benjamin, [facility] letter sent: Normal 1/2 BI-RADS Code: ACR BI-RADS Category 2: Benign
== END | disposition home or self-care (01) ==
LOC: C.MAMM 13:01
PROVIDERS: ATTEND Internal Medicine
DX: R92.8 Other abnormal and inconclusive findings on diagnostic imaging of breast (principal)

== ENCOUNTER 2017-12-15 06:27 | Inpatient (IN) | payer BC, OTHER ==
[2017-12-04 09:44] VITALS: BMI 23.0
--- NOTE | 2017-12-04 10:24 | PAT Medication Instructions ---
Service Date December 04, 2017. Current Home Medication List Amlodipine (Norvasc), 2.5 MG PO QAM Aspirin (Aspirin 81), 81 MG PO Q2D Atorvastatin (Lipitor), 20 MG PO QAM Betaxolol HCl (Betoptic-S), 1 DROP OPB BID Cholecalciferol (Vitamin D3), 1 TAB PO QAM Esomeprazole Magnesium (Nexium), 40 MG PO QAM Estrogens, Conjugated (Premarin), 0.5 GM PV 2XWK PRN for PRN Metoprolol Tartrate (Lopressor) (Lopressor), 12.5 MG PO BID Multiple Vitamin (Multi Vitamin Daily), 1 TAB PO QAM Nitroglycerin (Nitrostat), 0.4 MG UT PRN PRN for Chest Pain Polyethylene (Miralax), 1 DOSE PO DAILY PRN for Constipation Medication Instructions For Your Scheduled Surgery -Continue as directed for chest pain: Nitroglycerin (Nitrostat), 0.4 MG UT PRN PRN for Chest Pain - Hold the following medications 24 hours prior to surgery: Estrogens, Conjugated (Premarin), 0.5 GM PV 2XWK PRN for PRN - Hold the following medications the morning of surgery: Cholecalciferol (Vitamin D3), 1 TAB PO QAM Multiple Vitamin (Multi Vitamin Daily), 1 TAB PO QAM Polyethylene (Miralax), 1 DOSE PO DAILY PRN for Constipation - Take the following medications the morning of surgery with a sip of water: Amlodipine (Norvasc), 2.5 MG PO QAM Aspirin (Aspirin 81), 81 MG PO Q2D Atorvastatin (Lipitor), 20 MG PO QAM Betaxolol HCl (Betoptic-S), 1 DROP OPB BID Esomeprazole Magnesium (Nexium), 40 MG PO QAM Metoprolol Tartrate (Lopressor) (Lopressor), 12.5 MG PO BID - Take the following medications as scheduled the night before surgery: Betaxolol HCl (Betoptic-S), 1 DROP OPB BID Metoprolol Tartrate (Lopressor) (Lopressor), 12.5 MG PO BID Polyethylene (Miralax), 1 DOSE PO DAILY PRN for Constipation (if needed) If you have any questions please call us at [phone] or [phone] or [phone]
--- NOTE | 2017-12-04 11:07 | DIAGNOSTIC IMAGING REPORT ---
CHEST 2 VIEWS ROUTINE CLINICAL HISTORY: PAT preoperative evaluation COMPARISON STUDY: 09/10/2016 FINDINGS: The bones soft tissues and hemidiaphragms are normal. The cardiomediastinal silhouette is normal. The lungs are clear. The pulmonary vasculature is normal. IMPRESSION: Negative chest. The above report was generated using voice recognition software. It may contain grammatical, syntax or spelling errors. Electronically signed by: Martínez Godwin M.D. 12/04/2017 11:05 AM Dictated Date/Time: 12/04/2017 11:05 AM
[2017-12-04 12:57] LABS: BASO % 0.6 %; BASO ABS # 0.03 K/uL (0-0.2); EOS % 2.3 %; EOS ABS # 0.11 K/uL (0-0.5); HEMOGLOBIN 13.6 g/dL (12.0-16.0); IG# 0.01 K/uL (0.00-0.02); LYMPH ABS # 1.04 K/uL (1.2-3.4); MEAN CORPUSCULAR HEMOGLOBIN 31.3 pg (25-34); MEAN PLATELET VOLUME 12.9 fL (7.4-10.4); MONO % 8.7 %; MONO ABS # 0.41 K/uL (0.11-0.59); NEUT % 66.2 %; NEUT ABS # 3.13 K/uL (1.4-6.5); PLATELET COUNT 152 K/uL (130-400); RED CELL DISTRIBUTION WIDTH CV 12.6 % (11.5-14.5); RED CELL DISTRIBUTION WIDTH SD 42.5 fL (36.4-46.3); WHITE BLOOD COUNT 4.73 K/uL (4.8-10.8)
[2017-12-04 13:12] LABS: INR 1.1 (0.9-1.1); PTT PATIENT 26.6 SECONDS (21.0-31.0)
[2017-12-04 13:26] LABS: CALCIUM 8.8 mg/dl (8.5-10.1); CREATININE 0.7 mg/dl (0.60-1.20); POTASSIUM 4.1 mmol/L (3.5-5.1)
--- NOTE | 2017-12-10 17:35 | HISTORY & PHYSICAL EXAMINATION ---
DATE OF ADMISSION: 12/15/2017 CHIEF COMPLAINT: Right knee pain. HISTORY OF PRESENT ILLNESS: Patient is an 82-year-old female, lives at [facility] who presents for surgical treatment of her right knee. She has a long history of right knee pain and discomfort which she describes has gotten worse a little bit over time. She tried to maintain an active lifestyle, but unable to do so due to her knee pain. She has history of knee arthroscopy in the s. Her pain is mostly in the medial side of her knee. It is increased with weightbearing. If she does any significant activity, she really pays for it later on in the day and the next day. She would like to have her right knee fixed. PAST MEDICAL HISTORY: 1. Right bundle-branch block followed by Dr. Muir and cleared on 12/03/2017. 2. Pinched nerve in her neck. 3. Gastroesophageal reflux disease. PREVIOUS SURGICAL HISTORY: Include: 1. Cholecystectomy. 2. Right knee arthroscopy done in by Dr. Forrester. ALLERGIES: CODEINE WHICH CAUSED NAUSEA. CURRENT MEDICINES: Include: 1. Amlodipine. 2. Aspirin. 3. Atorvastatin. 4. Betoptic. 5. Vitamin D3. 6. Esomeprazole. 7. Estrogen. 8. Metoprolol. 9. Multivitamin. 10. Nitroglycerin. SOCIAL HISTORY: An 82-year-old female. Lives at [facility]. She is . Does not smoke. Rare alcohol intake. FAMILY HISTORY: Noncontributory. REVIEW OF SYSTEMS: Negative for diabetes, neurologic problems, vascular problems, bleeding disorders. No history of DVT or PE. No known bleeding problems. She has no cardiac symptoms. PHYSICAL EXAMINATION: GENERAL: This is a pleasant, thin elderly female. Looks to be in good health. HEENT: Benign. NECK: Supple. No lymphadenopathy. LUNGS: Clear to auscultation. HEART: Has a regular rate and rhythm. ABDOMEN: Soft, nontender, nondistended. EXTREMITIES: Grossly neurovascularly intact except as follows: Examination of the right knee reveals patient walks with a bit of a limp on the right side. She got varus alignment to her knee with a varus thrust with weightbearing. She has bony hypertrophy medially. Range of motion is 5-120. No instability. No pain with hip motion. She is neurologically intact. X-RAYS: X-ray of the right knee reviewed. Shows advanced right knee DJD. She has complete loss of medial joint space. She has got a fixed varus deformity to her knee. She has got osteophytes of the medial femoral condyle. ASSESSMENT: An 82-year-old female with a history of knee arthroscopy in the past with advanced right knee degenerative joint disease. She has failed conservative treatment, would like to have her right knee replaced. PLAN: We are going to take her to the operating room and do right total knee replacement. The risks and benefits of this procedure were explained to the patient including but not limited to DVT, PE, , infection, neurological injury, vascular injury, bleeding problem, pain, limited range of motion, stiffness, failure to relieve her symptoms, incomplete relief of symptoms, need for further surgery in future, fracture, leg length inequality, nerve palsy, etc. The patient understands and desires to proceed. Informed consent was obtained. We did talk to her about taking her metoprolol the morning of surgery. She is planning to be discharged to [facility] for recovery. She did see Dr. Muir and being cleared for surgery from the cardiac standpoint on 12/03/2017.
[2017-12-15] VITALS (9 sets, daily range): BP systolic 121–165; BP diastolic 60–71; PULSE 61–82; TEMP 36.3–36.6; O2SAT 92–99; Ht 167.6 cm; Wt 64.7 kg
[~2017-12-15] VITALS: Ht 167.6 cm; Wt 64.7 kg
[~2017-12-15 06:27] MED LIST changes: +ACETAMINOPHEN 500 MG TAB PO SCH; +BUPIVACAINE LIPOSOME 266 MG, BUPIVACAINE/EPINEPHRINE INJ 50 ML, SODIUM CHLORIDE 0.9% PF... INFIL SCH; +CEFAZOLIN 2000MG IV PUSH 15 ML IV SCH; +FAMOTIDINE 20 MG TAB PO SCH; +GABAPENTIN 300 MG CAP PO SCH; +LACTATED RINGER'S 1000ML 1,000 ML IV SCH; +LACTATED RINGER'S 1000ML 500 ML IV SCH; +LACTATED RINGER'S 1000ML IV SCH; +MRLP17 PO
--- NOTE | 2017-12-15 06:53 | History & Physical Bridge Note ---
H&P Re-Evaluation Bridge Note: I have examined the patient, reviewed the History & Physical and in the interval since the performance of the History & Physical I have noted the following changes of clinical significance: No changes noted
[2017-12-15] MEDS ORDERED: MIDAZOLAM HCL 1 MG/ML 2ML VIAL ONE (07:59)
[2017-12-15] MEDS ORDERED: FENTANYL CITRATE INJ 50 MCG/1 ML 2 ML VIAL ONE (07:59)
[2017-12-15] MEDS ORDERED: MoRPHine SULFATE PF 1 MG/ML 10 ML AMP/VIAL ONE (08:00)
[2017-12-15] MEDS ORDERED: BACITRACIN 50000 UNIT VIAL ONE (08:39)
[2017-12-15] MEDS ORDERED: BUPIVACAINE LIPOSOME 1/3% 266 MG/20 ML VIAL ONE (08:39)
[2017-12-15] MEDS ORDERED: SODIUM CHLORIDE 0.9% PF 50 ML VIAL ONE (08:39)
[2017-12-15] MEDS ORDERED: EpINEphrine INJ 1MG/ML AMP 1 MG/ML AMP ONE (08:40)
[2017-12-15] MEDS ORDERED: BUPIVACAINE 0.25% 30 ML VIAL ONE ×2 (08:40→09:03)
[2017-12-15] MEDS ORDERED: ROPIVACAINE 0.5% 5 MG/ML 30 ML VIAL ONE (08:55)
[2017-12-15] MEDS ORDERED: HYDROmorphone INJ 2 MG/ML SYR/VIAL ONE (09:56)
[2017-12-15] MEDS ORDERED: ONDANSETRON INJ 2 MG/ML 2 ML VIAL ONE (10:02)
[2017-12-15] MEDS ORDERED: LIDOCAINE HCL 2% 2 ML VIAL (20MG/ML) ONE (10:02)
[2017-12-15] MEDS ORDERED: DEXAMETHASONE SOD INJ 4 MG/ML VIAL ONE (10:02)
[2017-12-15] MEDS ORDERED: EpHEDrine SULFATE 50MG/5ML SYR ONE (10:02)
[2017-12-15] MEDS ORDERED: PROPOFOL IV EMULSION 10 MG/ML 20 ML VIAL ONE (10:03)
[2017-12-15] MEDS ORDERED: NURSING VERBAL MED ORDER STA (10:31)
[2017-12-15] MEDS ORDERED: TRANEXAMIC ACID INJ 1,000 MG x 1 Bag Preop IV ONE ×2 (10:45)
--- NOTE | 2017-12-15 11:02 | [facility] Post Operative Brief Note ---
Immediate Operative Summary Operative Date December 15, 2017. Pre-Operative Diagnosis Advanced right knee degenerative joint disease Post-Operative Diagnosis Same as preoperative. Procedure(s) Performed Right Total Knee Arthroplasty, Cemented Surgeon Dr. Lynch Shooting Gallery Operator Surgeon(s) Lore Wong PA-C Estimated Blood Loss 50ml Findings Consistent with Post-Op Diagnosis Fluids (cc crystalloids) 1500 cc Specimens A.) Right Knee Bone and Tissue Drains None Anesthesia Type General Regional Complication(s) none Disposition Accompanied Pt To Recover: no Disposition: Recovery Room / PACU Overlapping Procedure I was present for: the critical portions of procedure. I was immediately available: during the entire case
[2017-12-15] MEDS ORDERED: SILVER SULFADIAZINE 1% CR 50 GM JAR EXT PRN (11:15)
[2017-12-15] MEDS ORDERED: ZOLPIDEM TARTRATE 5 MG TAB PO PRN (11:15)
[2017-12-15] MEDS ORDERED: BISACODYL 10 MG SUPP PR PRN (11:15)
[2017-12-15] MEDS ORDERED: HYDROmorphone INJ 0.5 MG/0.5 ML SYR IV PRN (11:15)
[2017-12-15] MEDS ORDERED: TRAMADOL HCL 50 MG TAB PO PRN (11:15)
[2017-12-15] MEDS ORDERED: NITROGLYCERIN 0.4 MG SL PER TAB CHARGE UT PRN (11:15)
[2017-12-15] MEDS ORDERED: ALUMINUM/MAGNESIUM/SIMETH (MAALOX MAX) 30 ML UDC PO PRN (11:15)
[2017-12-15] MEDS ORDERED: POLYETHYLENE (MIRALAX) 17 GM PACK PO PRN (11:15)
[2017-12-15] MEDS ORDERED: ONDANSETRON INJ 2 MG/ML 2 ML VIAL IV PRN ×2 (11:15→11:30)
[2017-12-15] MEDS ORDERED: METOCLOPRAMIDE HCL INJ 5 MG/ML 2 ML VIAL IV PRN (11:15)
[2017-12-15] MEDS ORDERED: MAGNESIUM HYDROXIDE SUSP 30 ML UDC PO PRN (11:15)
[2017-12-15] MEDS ORDERED: EpHEDrine SULFATE INJ 50 MG/ML AMP IV PRN (11:30)
[2017-12-15] MEDS ORDERED: ATROPINE SULFATE 0.1 MG/ML 5ML SYR IV PRN (11:30)
[2017-12-15] MEDS ORDERED: HYDROmorphone INJ 2 MG/ML SYR/VIAL IV PRN (11:30)
[2017-12-15] MEDS ORDERED: MEPERIDINE HCL 25 MG/ML CARP IV PRN (11:30)
[2017-12-15] MEDS ORDERED: FENTANYL CITRATE INJ 50 MCG/1 ML 2 ML VIAL IV PRN (11:30)
[2017-12-15] MEDS ORDERED: LABETALOL HCL IV 5 MG/ML 20ML IV PRN (11:30)
--- NOTE | 2017-12-15 11:38 | DIAGNOSTIC IMAGING REPORT ---
RIGHT KNEE 2 VIEWS History: Right total knee arthroplasty. Degenerative arthritis. Postop. FINDINGS: The patient is status post a right total knee arthroplasty. The hardware is intact. No fracture or dislocation. Skin oumar are in place. IMPRESSION: Right total knee arthroplasty. No evidence for hardware complication. Electronically signed by: Jose Miguel Boyd M.D. 12/15/2017 11:37 AM Dictated Date/Time: 12/15/2017 11:36 AM
--- NOTE | 2017-12-15 12:49 | OPERATIVE REPORT ---
DATE OF OPERATION: 12/15/2017 SURGEON: Angelo Lynch MD. VICE PRESIDENT MARKETING & DEVELOPMENT: VINCE Payne PREOPERATIVE DIAGNOSIS: Right knee degenerative joint disease. POSTOPERATIVE DIAGNOSIS: Same. PROCEDURE PERFORMED: Right cemented posterior stabilized total knee arthroplasty. COMPLICATIONS: None. ESTIMATED BLOOD LOSS: 50 mL. FLUID REPLACEMENT: 1500 mL crystalloid fluid replacement. ANESTHESIA: Failed spinal, with general anesthetic and adductor canal block. DRAINS: None. SPECIMENS: Right knee sent for pathology. OPERATIVE INDICATIONS: The patient is an 82-year-old female who has had a long history of right knee pain and discomfort. She underwent a right knee arthroscopy back in the by Dr. Forrester. She did well for a while but has had increasing pain, this became more disabling over the past several years. She is having difficulty getting around and doing any significant activity. She elected to proceed with operative treatment. OPERATIVE FINDINGS: Revealed advanced diffuse grade 4 changes in the medial femoral condyle and medial tibial plateau. She had some more focal grade 4 change in the patellofemoral joint and more focal grade 3 changes in the lateral compartment. She had a moderate sized joint effusion. She had a fixed varus deformity to her knee. OPERATIVE IMPLANTS: 1. Biomet Vanguard size 65 right posterior stabilized femoral component. 2. Biomet size 67 tibial tray. 3. A 10 mm posterior stabilized polyethylene insert. 4. A 31 x 8 all poly patella. OPERATIVE PROCEDURE: The patient was taken to the operating room, identified and placed on the operative table in supine position. All contact areas were appropriately padded. IV antibiotics provided by anesthesia team. A spinal anesthetic was attempted, but failed and adductor canal block had been provided in the holding area. Blancas catheter was placed in sterile fashion. A general anesthetic was implemented as they were unable to get the spinal. A right thigh tourniquet was then placed, and the right lower extremity was then prepped and draped in the usual sterile fashion. The right leg was elevated and exsanguinated with Esmarch. Tourniquet was placed at 300 mmHg. An anterior approach to the right knee was then performed through a longitudinal incision centered over the patella. Sharp dissection was carried through subcutaneous tissues down to the level of the extensor mechanism. A medial parapatellar arthrotomy incision was made. Some subperiosteal dissection was carried out medially. The fat pad was resected from beneath the patellar tendon. The lateral patellofemoral ligament was released. Patella was everted. Knee was flexed. The osteophytes were taken off distal femur. The ACL and PCL were then released from the distal femur and the tibia subluxated anteriorly. The external tibial alignment jig was then placed in the anterior face of the tibia and adjusted 14 mm medially. Proximal tibial cut was made to remove about 1 mm of bone from the most deficient aspect of the medial tibial plateau. Some osteophytes were taken off medially and posteromedially. Tibia was sized to a size 67. Attention was then drawn to the femur. The distal femur was entered with a sharp drill bit. Intramedullary canal was suctioned. A right 5 degree valgus cutting guide was placed. Distal femoral cutting block was pinned in place. A distal femoral cut was made to take an additional 3 mm of bone off distal femur. Femur was then sized to a size 65. We downsized this almost an entire size in order to make it fit from the medial/lateral dimensions. The AP cutting block was pinned parallel to the epicondylar axis, which was 3 degrees of external rotation. The anterior cut, anterior chamfer, posterior cut, posterior chamfer cuts were made. Box cutting guide was placed and adjusted slightly lateral, and the box cut was made. The knee was flexed. Remnants of the medial and lateral menisci were excised. The osteophytes were taken off the posterior aspect of the femur. Trial femoral component was placed. The tibial tray was pinned in maximum external rotation, and drill and stem punch were used to create a defect in the proximal tibia for the tibial tray. The knee was then trialed, and the 10 mm insert fit most appropriately. Attention was then drawn to the patella. The patella was cleaned of all soft tissues. Patella thickness measured 22 mm. It was cut down to 13. It was sized to a size 31 patella. The lug holes were drilled for a 31 patella. The lateral osteophyte was removed. Patella button was placed. Knee was taken through range of motion, and patella tracked nicely with no thumbs test. Attention was then drawn toward placement of permanent components. All trial components were removed. Bone plug was placed in the distal femur to limit blood loss. A double batch of Palacos G cement was mixed. A right size 65 posterior stabilized femoral component, size 67 tibial tray, a 10 mm posterior stabilized polyethylene insert, and a 31 x 8 all poly patella were then cemented in place. Knee was brought out into full extension until cement hardened. A final cement check was then performed. Pericapsular tissues were injected with a total of 100 mL of a combination of 20 mL of Exparel, 30 mL of normal saline, 50 mL of 0.25% Marcaine with epinephrine. The patient did receive 1 g of tranexamic acid. The tourniquet was then let down for a final tourniquet time of 55 minutes. Hemostasis was assured with the use of electrocautery. The wound was once again irrigated. The extensor mechanism was then closed with a combination of #1 PDS suture and #1 Vicryl suture in hytfth-ro-mwail fashion. Extensor mechanism was checked and found to be intact. The subcutaneous tissues were then closed with #2 Dexon suture in a buried interrupted fashion. Skin was closed with skin oumar. Leg was then cleaned and dried, and a sterile dressing of Xeroform, 4x4, sterile cast padding, and Zoran bandage was applied. The patient was then brought out of general anesthesia and transferred to the recovery room in stable condition. The patient tolerated the procedure well with no complications. All needle and sponge counts were correct at the end of the operation. I attest to the content of the Intraoperative Record and any orders documented therein. Any exceptions are noted below. MARCO ANTONIOD
--- NOTE | 2017-12-15 13:57 | Anesthesiology Progress Note ---
Anesthesia Post Op Note Date & Time December 15, 2017 at 13:57 Vital Signs Pain Intensity: 0.0 Vital Signs Past 12 Hours Date Time Temp Pulse Resp B/P (MAP) Pulse Ox O2 Delivery O2 Flow Rate FiO2 12/15/17 13:43 66 17 136/71 (92) 99 Room Air 12/15/17 13:15 36.3 69 16 126/65 (85) 98 Nasal Cannula 2.0 12/15/17 12:45 Nasal Cannula 2.0 12/15/17 12:45 36.4 69 16 129/64 (85) 96 Nasal Cannula 2.0 12/15/17 12:45 Nasal Cannula 2.0 12/15/17 12:15 69 14 139/58 98 Nasal Cannula 2 12/15/17 12:05 76 14 126/55 98 Nasal Cannula 2 12/15/17 11:55 70 14 144/65 98 Nasal Cannula 2 12/15/17 11:45 36.2 72 14 144/57 100 Nasal Cannula 2 12/15/17 11:35 72 16 139/57 100 Nasal Cannula 2 12/15/17 11:25 74 16 141/58 100 Nasal Cannula 4 12/15/17 11:15 72 16 137/57 100 Nasal Cannula 4 12/15/17 11:10 36 72 16 133/51 100 Nasal Cannula 4 12/15/17 07:15 36.6 82 20 165/61 97 Room Air Notes Mental Status: alert / awake / arousable, participated in evaluation Pt Amnestic to Procedure: Yes Nausea / Vomiting: adequately controlled Pain: adequately controlled Airway Patency, RR, SpO2: stable & adequate BP & HR: stable & adequate Hydration State: stable & adequate Anesthetic Complications: no major complications apparent
[2017-12-15] MEDS: D5W AND 1/2NSS + 20MEQ KCL 1,000 ML IV SCH (14:32)
[2017-12-15] MEDS: KETOROLAC TROMETHAMINE 15 MG/ML VIAL IV. SCH ×2 (14:32→20:02)
[2017-12-15] MEDS: ACETAMINOPHEN 500 MG TAB PO SCH ×2 (14:33→21:03)
--- NOTE | 2017-12-15 14:53 | PROGRESS NOTE ---
DATE: 12/15/2017 SUBJECTIVE: An 82-year-old female postop from a right knee replacement. She is doing well. She says she did not think she feels well right after surgery. No chest pain or shortness of breath. Not feeling any leg pain yet. OBJECTIVE: VITAL SIGNS: Temperature is 36.3. Vital signs stable. PHYSICAL EXAMINATION: GENERAL: This is a pleasant elderly female. She is sitting up in her bed and looks quite comfortable. She just finished lunch. LUNGS: Clear to auscultation. HEART: Has a regular rate and rhythm. ABDOMEN: Soft, nontender, nondistended. EXTREMITIES: Grossly neurovascularly intact except as follows: Examination of the right leg reveals the leg to be well aligned. Dressing is clean, dry, and intact. She can dorsiflex and plantarflex her foot appropriately. She is neurologically intact. X-RAYS: X-ray of the right knee from recovery room reviewed. It shows a right cemented posterior stabilized total knee arthroplasty. The components looked to be in good position. No signs of problems. ASSESSMENT: This is an 82-year-old female postop from a right knee replacement, doing well. Pain is controlled. She is neurologically intact. PLAN: 1. DVT prophylaxis include thigh-high TEDs, SCDs, and aspirin twice a day. 2. PT/OT. Weight bear as tolerated. Right total knee protocol. 3. Pain control, doing well with current pain regimen. We will have to be careful to limit narcotics to avoid confusion. 4. IV antibiotics x24 hours. 5. Disposition: She is hoping to be discharged to [facility] as she is a resident of [facility] and will eventually work her way back there.
[2017-12-15] MEDS: FERROUS GLUCONATE 324 MG TAB PO SCH (17:41)
[2017-12-15] MEDS: CEFAZOLIN IV 1,000 MG in SYRINGE 0 ML IV SCH (17:42)
[2017-12-15] MEDS ORDERED: TRANEXAMIC ACID INJ 1,000 MG in SODIUM CHLORIDE 0.9% 100ML 100 ML IV SCH (19:00)
[2017-12-15] MEDS: ASPIRIN 81 MG ECTAB PO SCH (21:02)
[2017-12-15] MEDS: DOCUSATE SODIUM 100 MG CAP PO SCH (21:02)
[2017-12-15] MEDS: BETAXOLOL HCL 0.25% OPB SCH (21:02)
[2017-12-15] MEDS: SENNA 8.6 MG TAB PO SCH (21:03)
[2017-12-15] MEDS: METOPROLOL TARTRATE 25 MG TAB PO SCH (21:03)
[2017-12-16] MEDS: D5W AND 1/2NSS + 20MEQ KCL 1,000 ML IV SCH ×2 (00:24→09:45)
[2017-12-16] MEDS: CEFAZOLIN IV 1,000 MG in SYRINGE 0 ML IV SCH (01:53)
[2017-12-16] MEDS: KETOROLAC TROMETHAMINE 15 MG/ML VIAL IV. SCH ×4 (01:54→20:25)
[2017-12-16 03:00] VITALS: BP 135/62; PULSE 67; TEMP 36.7; O2SAT 96
[2017-12-16] MEDS: ACETAMINOPHEN 500 MG TAB PO SCH ×3 (05:38→20:28)
[2017-12-16 06:55] LABS: HEMATOCRIT 34.4 % (37-47); HEMOGLOBIN 11.6 g/dL (12.0-16.0); MEAN CORPUSCULAR HGB CONC 33.7 g/dl (32-36); MEAN PLATELET VOLUME 11.8 fL (7.4-10.4); PLATELET COUNT 111 K/uL (130-400); RED CELL DISTRIBUTION WIDTH CV 12.5 % (11.5-14.5); RED CELL DISTRIBUTION WIDTH SD 42.1 fL (36.4-46.3); WHITE BLOOD COUNT 9.73 K/uL (4.8-10.8)
[2017-12-16 07:31] LABS: CALCIUM 8.6 mg/dl (8.5-10.1); CREATININE 0.76 mg/dl (0.60-1.20); POTASSIUM 4.2 mmol/L (3.5-5.1)
[2017-12-16 07:53] VITALS: BP 130/62; PULSE 70; TEMP 36.9; O2SAT 94
[2017-12-16] MEDS: FERROUS GLUCONATE 324 MG TAB PO SCH ×3 (08:30→17:32)
[2017-12-16] MEDS: BETAXOLOL HCL 0.25% OPB SCH ×2 (08:50→20:27)
[2017-12-16] MEDS: ASPIRIN 81 MG ECTAB PO SCH ×2 (08:51→20:27)
[2017-12-16] MEDS: DOCUSATE SODIUM 100 MG CAP PO SCH ×2 (08:51→20:26)
[2017-12-16] MEDS: METOPROLOL TARTRATE 25 MG TAB PO SCH ×2 (08:51→20:30)
[2017-12-16] MEDS: PANTOprazole SOD 40 MG TAB PO SCH (08:51)
[2017-12-16] MEDS: CHOLECALCIFEROL 400 INTER.UNIT TAB PO SCH (08:51)
[2017-12-16] MEDS: ATORVASTATIN 20 MG TAB PO SCH (08:51)
[2017-12-16] MEDS: MULTIVITAMIN TAB PO SCH (08:51)
[2017-12-16] MEDS: AMLODIPINE BESYLATE 5 MG TAB PO SCH (08:52)
[2017-12-16] MEDS ORDERED: ONDA4TAB65 PO (08:56)
[2017-12-16] MEDS ORDERED: ULT50X PO (08:56)
[2017-12-16] MEDS ORDERED: ACET-24 PO (08:56)
[2017-12-16] MEDS ORDERED: ASPI-320 PO (08:56)
--- NOTE | 2017-12-16 08:58 | Discharge Instructions ---
Discharge Instructions Date of Service December 16, 2017. Admission Reason for Admission: Right Knee Degenerative Joint Disease, Knee Pain Discharge Discharge Diagnosis / Problem: Right Knee Replacement Discharge Goals Goal(s): Decrease discomfort, Improve function, Increase independence, Improve disease control, Therapeutic intervention Activity Recommendations Activity Level: Assistance Required Therapies: Physical Therapy, Occupational Therapy Weightbearing Status: Right weightbearing . Additional Information Patient informed of condition: Yes Advance Directives: No DNR: No Level of Care: Skilled Communicable Disease: No Prognosis: Improving Instructions / Follow-Up Instructions / Follow-Up ACTIVITY RECOMMENDATIONS: Physical Therapy: * You will go to physical therapy three times each week for four to six weeks after your surgery in order to regain your knee range of motion and to retrain your knee to work properly. * It is just as important to make sure you are getting your knee perfectly straight as it is to regain your knee bend. * Taking a pain pill an hour before therapy can help you have a more productive and comfortable therapy session. Home Exercise: * You were shown a series of exercises (heel props, heel slides, etc.) in the hospital. Do these exercises three to four times each day including the exercises you were shown in physical therapy. Walking: * Get up and walk several times each day. For the first four weeks, try not to stand or walk for more than one hour at a time. If you do stand or walk for more than one hour, you will not hurt anything, but your knee and leg will likely swell. * As you feel comfortable, you may change from the walker or crutches to a cane and then to independent walking. MEDICATIONS: New Medicine: * You will likely be taking one or more of these medications: 1. Tramadol - A quick and shorter-acting pain medication. Take one to two tablets every four to six hours to lessen your pain. 2. Aspirin - Thins your blood to lessen the chance of forming a blood clot. * The most common side effects of pain medicine and iron are nausea and constipation. If nausea or constipation is too much of a problem or if you have any questions about your new medicines or doses, call [facility] at . We will try to help you manage these issues. VERY IMPORTANT TO READ AND REVIEW" Pain: * The immediate post-operative period after knee replacement surgery is often quite painful. * You are given a prescription for pain medicine. You should take it, as directed, when you need it, especially before physical therapy and before going to bed. Pain that interferes with sleep is very common and can last several months. * You will likely need pain medicine for the first four to six weeks. It will not stop all of the pain. The pain will lessen and as you feel better, you may change to milder pain medicine such as Tylenol. * The most common side effects of pain medicine are nausea and constipation, so don't take more than you need. SPECIAL CARE INSTRUCTIONS: TEDs/Elastic Stockings: * The white elastic stockings help limit swelling and prevent blood clots from forming in your legs. The more you wear them, the more they work. * Wear them for six weeks after knee replacement surgery and four weeks after partial knee replacement. Prevention of Infection: * Take antibiotics one hour before any dental cleaning, dental work, urological procedure, gastrointestinal procedure or any invasive surgery in order to prevent your new joint from getting infected. * You may get the antibiotics from the doctor performing the procedure or you may call our office at before and we will call in a prescription to the pharmacy of your choice. Things to Watch For: * Drainage from the incision site that occurs more than one week after your surgery. * Severely increased knee/leg pain or swelling. * Increased redness at the incision site. * Fever above 102 degrees Fahrenheit. * Unusual chest pain or shortness of breath. * Unusual pain or burning with urination. Call [facility] at with any of the above problems or if you have any questions about your medicines or recovery. FOLLOW UP VISIT: Make an appointment to see your doctor for approximately two weeks after surgery for a progress check and staple removal by calling the office at . Current Hospital Diet Patient's current hospital diet: Regular Diet Discharge Diet Recommended Diet: Regular Diet Procedures Procedures Performed: Right Total Knee Arthroplasty, Cemented Pending Studies Studies pending at discharge: no Medical Emergencies . Who to Call and When: Medical Emergencies: If at any time you feel your situation is an emergency, please call [phone] immediately. . Non-Emergent Contact Non-Emergency issues call your: Surgeon . . "Provider Documentation" section prepared by Angelo Lynch. . Core Measure Problem Core Measures: None
[2017-12-16] MEDS ORDERED: MULTIVITAMIN TAB PO SCH (09:00)
[2017-12-16] MEDS ORDERED: PANTOprazole SOD 40 MG TAB PO SCH (09:00)
[2017-12-16 09:27] VITALS: O2SAT 94
[2017-12-16 11:26] VITALS: BP 132/62; PULSE 74; TEMP 36.8; O2SAT 97
--- NOTE | 2017-12-16 14:19 | PROGRESS NOTE ---
DATE: 12/16/2017 SUBJECTIVE: An 82-year-old female postop day 1 from a right knee replacement. She is doing well. Pain has been controlled. Therapy went well. No chest pain or shortness of breath. Not feeling dizzy or lightheaded. She is doing okay with the pain medicines. OBJECTIVE: VITAL SIGNS: Temperature 36.8. Vital signs stable. GENERAL: Physical examination reveals a pleasant elderly female. She is sitting in her bedside chair and looks comfortable. EXTREMITIES: Examination of the right leg reveals the dressing to be clean, dry and intact. She can dorsiflex and plantarflex her foot appropriately. She is neurologically intact. LABORATORY DATA: Hemoglobin 11.6. Hematocrit 34.4. Electrolytes are stable. ASSESSMENT: An 82-year-old female postoperative day 1 from a right knee replacement, doing quite well. Pain is controlled. She is neurologically intact. PLAN: 1. DVT prophylaxis including thigh-high TEDs, SCDs, and aspirin twice a day. 2. PT/OT. Weight bear as tolerated. Right total knee protocol. 3. Pain control, doing well with current pain regimen. 4. Disposition: She is planning to be discharged to [facility] once medically stable.
[2017-12-16 15:20] VITALS: BP 127/60; PULSE 69; TEMP 36.9; O2SAT 95
[2017-12-16] MEDS: SENNA 8.6 MG TAB PO SCH (20:26)
[2017-12-16 23:39] VITALS: BP 145/65; PULSE 71; TEMP 36.8; O2SAT 95
[2017-12-17] MEDS: KETOROLAC TROMETHAMINE 15 MG/ML VIAL IV. SCH ×2 (01:52→08:39)
[2017-12-17] MEDS: ACETAMINOPHEN 500 MG TAB PO SCH ×2 (05:34→13:30)
[2017-12-17 07:40] VITALS: BP 148/74; PULSE 73; TEMP 36.7; O2SAT 95
[2017-12-17] MEDS: FERROUS GLUCONATE 324 MG TAB PO SCH ×2 (08:37→12:02)
[2017-12-17] MEDS: ATORVASTATIN 20 MG TAB PO SCH (08:37)
[2017-12-17 08:38] VITALS: BP 148/74; PULSE 73; TEMP 36.7; O2SAT 95
[2017-12-17] MEDS: AMLODIPINE BESYLATE 5 MG TAB PO SCH (08:38)
[2017-12-17] MEDS: ASPIRIN 81 MG ECTAB PO SCH (08:38)
[2017-12-17] MEDS: DOCUSATE SODIUM 100 MG CAP PO SCH (08:39)
[2017-12-17] MEDS: CHOLECALCIFEROL 400 INTER.UNIT TAB PO SCH (08:39)
[2017-12-17] MEDS: MULTIVITAMIN TAB PO SCH (08:40)
[2017-12-17] MEDS: PANTOprazole SOD 40 MG TAB PO SCH (08:40)
[2017-12-17] MEDS: METOPROLOL TARTRATE 25 MG TAB PO SCH (08:40)
[2017-12-17] MEDS: BETAXOLOL HCL 0.25% OPB SCH (08:40)
[2017-12-17 08:41] VITALS: O2SAT 95
[2017-12-17 10:57] VITALS: BP 148/74; PULSE 73; TEMP 36.7; O2SAT 95
--- NOTE | 2017-12-17 11:29 | PROGRESS NOTE ---
DATE: 12/17/2017 SUBJECTIVE: An 82-year-old female postop day 2 from a right knee replacement. She has a little bit more pain today. Denies any chest pain or shortness of breath. Not feeling dizzy or lightheaded. OBJECTIVE: VITAL SIGNS: Temperature 36.7. Vital signs stable. PHYSICAL EXAMINATION: GENERAL: Reveals a pleasant elderly female. She is sitting up in her bed and was eating breakfast and talking to her son of my visit her this morning. She looks good and comfortable. EXTREMITIES: Examination of the right leg reveals the dressing to be clean, dry and intact. No drainage. She can dorsiflex and plantarflex her foot appropriately. She is neurologically intact. ASSESSMENT: An 82-year-old female postoperative day 2 from a right knee replacement, doing quite well. Pain has been reasonably well controlled. PLAN: 1. DVT prophylaxis including thigh high TEDs, SCDs, and aspirin twice a day. 2. PT/OT. Weight bear as tolerated. Right total knee protocol. 3. Pain control, doing well with current pain regimen. 4. Disposition: She is planning to be discharged to [facility] later today as long as therapy goes okay.
== END 2017-12-17 14:38 | DRG 470 ==
LOC: C.ACU 06:27 → C.3E 06:40 → ENRESERV 12:15 → CMPBEDREQ 13:18
PROVIDERS: ADMIT Orthopaedic Surgery Sports Medicine; ATTEND Orthopaedic Surgery Sports Medicine
PROC: 0SRC0J9 Replacement of Right Knee Joint with Synthetic Substitute, Cemented, Open Approach (ICD-10-PCS; principal; 2017-12-15 09:00)
DX: M17.11 Unilateral primary osteoarthritis, right knee (principal); I45.10 Unspecified right bundle-branch block; K21.9 Gastro-esophageal reflux disease without esophagitis; Z79.899 Other long term (current) drug therapy

== ENCOUNTER → 2017-12-17 | Outpatient (CLI) | payer BC, OTHER ==
[~2017-12-17] MED LIST changes: +ACET-24 PO; -ACETAMINOPHEN 500 MG TAB PO SCH; +ASPI-320 PO; -ASPI-435 PO; -BUPIVACAINE LIPOSOME 266 MG, BUPIVACAINE/EPINEPHRINE INJ 50 ML, SODIUM CHLORIDE 0.9% PF... INFIL SCH; -CEFAZOLIN 2000MG IV PUSH 15 ML IV SCH; -FAMOTIDINE 20 MG TAB PO SCH; -GABAPENTIN 300 MG CAP PO SCH; -LACTATED RINGER'S 1000ML 1,000 ML IV SCH; -LACTATED RINGER'S 1000ML 500 ML IV SCH; -LACTATED RINGER'S 1000ML IV SCH; +ONDA4TAB65 PO; +ULT50X PO
== END | disposition home or self-care (01) ==
LOC: C.LABFOXAE 16:23
PROVIDERS: ATTEND Nurse Practitioner Family
DX: N39.0 Urinary tract infection, site not specified (principal)

== ENCOUNTER → 2018-03-08 | Outpatient (CLI) | payer BC ==
[~2018-03-08] MED LIST changes: -ONDA4TAB65 PO
[2018-03-08 08:51] LABS: HEMATOCRIT 39.8 % (37-47); MEAN CORPUSCULAR HEMOGLOBIN 30.4 pg (25-34); MEAN CORPUSCULAR HGB CONC 32.7 g/dl (32-36); MEAN PLATELET VOLUME 12.2 fL (7.4-10.4); PLATELET COUNT 159 K/uL (130-400); RED CELL DISTRIBUTION WIDTH CV 13.6 % (11.5-14.5); RED CELL DISTRIBUTION WIDTH SD 46.1 fL (36.4-46.3); WHITE BLOOD COUNT 4.79 K/uL (4.8-10.8)
[2018-03-08 09:17] LABS: BLOOD UREA NITROGEN 15 mg/dl (7-18); CALCIUM 9.1 mg/dl (8.5-10.1); CARBON DIOXIDE 33 mmol/L (21-32); CREATININE 0.58 mg/dl (0.60-1.20); GLUCOSE 92 mg/dl (70-99); POTASSIUM 4.2 mmol/L (3.5-5.1); SODIUM 141 mmol/L (136-145)
== END | disposition home or self-care (01) ==
LOC: C.LABFOXMH 08:18
PROVIDERS: ATTEND Internal Medicine
DX: R51 Headache (principal)

== ENCOUNTER 2023-05-07 22:45 | Inpatient (IN) ==
--- NOTE | 2023-05-07 23:56 | Emergency Department Note ---
ED Visit Note The patient was seen and examined with latonia. I agree with the history, physical and findings. Please see the note for disposition and details. .
[2023-05-08 00:09] LABS: Basophils # (auto) 0.04 K/uL (0.00-0.20); Basophils % (auto) 0.6 %; Eosinophils # (auto) 0.14 K/uL (0.00-0.50); Eosinophils % (auto) 2.1 %; Hemoglobin 13.7 g/dl (12.0-16.0); Immature Granulocytes # (auto) 0.03 K/uL (0.01-0.20); Immature Granulocytes % (auto) 0.5 %; Lymphocytes % (auto) 24.3 %; Mean Corpuscular Hemoglobin 30.8 pg (25.0-34.0); Mean Corpuscular Hgb Conc 33.4 g/dL (32.0-36.0); Mean Corpuscular Volume 92.1 fL (80.0-100.0); Monocytes # (auto) 0.42 K/uL (0.11-0.59); Monocytes % (auto) 6.4 %; Neutrophils # (auto) 4.35 K/uL (1.40-6.50); Neutrophils % (auto) 66.1 %; Platelet Count 155 K/uL (130-400); RDW Coefficient of Variation 12.5 % (11.5-14.5); RDW Standard Deviation 42.1 fL (36.4-46.3); Red Blood Count 4.45 M/uL (4.20-5.40); White Blood Count 6.58 K/ul (4.8-10.8)
[2023-05-08 00:17] LABS: Appearance Urine Clear (Clear); Bilirubin Urine Negative (Negative); Blood Urine Negative (Negative); Color Urine Yellow; Glucose Urine UA Negative (Negative); Ketones Urine Negative (Negative); Leukocyte Esterase Urine Negative (Negative); Nitrite Urine Negative (Negative); Protein Urine Negative (Negative); Specific Gravity Urine 1.009 (1.000-1.030); Urobilinogen Urine Negative (Negative); pH Urine 6.5 (4.5-7.5)
[2023-05-08 00:17] LABS: Albumin Globulin Ratio 1.8 (0.9-2); Albumin Level 4.3 gm/dl (3.4-5.0); BUN Creatinine Ratio 22.1 (10-20); Bilirubin,Total 0.4 mg/dl (0.2-1.0); Calcium 9.5 mg/dl (8.6-10.3); Creatinine Clr Calc Pharmacy 43.6 ml/min; Est GFR (African American) 69.4 ml/min; Est GFR (Non-African American) 59.9 ml/min; Globulin 2.4 gm/dl (2.5-4.0); Magnesium 1.9 mg/dl (1.7-2.4); Potassium 3.6 mmol/L (3.5-5.1); Total Protein 6.7 gm/dl (6.0-8.3)
--- NOTE | 2023-05-08 00:17 | Emergency Department Note ---
History of Present Illness General Chief complaint: Fall History of Present Illness Maximum Pain Intensity: 4 This 87-year-old female presents from [facility] for evaluation of feeling lightheaded and falling sustaining a hip injury. Patient denies chest pain, dyspnea, back pain, neck pain, numbness, tingling, localized weakness. Patient is on a baby aspirin. Home Medications Medication Instructions Recorded Confirmed Type acetaminophen 500 mg tablet 500 mg PO TID 05/08/23 05/08/23 History (Tylenol Extra Strength) acetaminophen 650 mg rectal 650 mg [place] Q4H PRN Fever Or Pain 05/08/23 05/08/23 History suppository amlodipine 2.5 mg tablet 2.5 mg PO DAILY 05/08/23 05/08/23 History amlodipine 5 mg tablet 5 mg PO DAILY 05/08/23 05/08/23 History amoxicillin 500 mg capsule 2,000 mg PO DIRECTED 05/08/23 05/08/23 History aspirin 81 mg tablet,delayed 81 mg PO DAILY 05/08/23 05/08/23 History release atorvastatin 20 mg tablet 20 mg PO QPM 05/08/23 05/08/23 History betaxolol 0.25 % eye 1 drp OPB BID 05/08/23 05/08/23 History drops,suspension (Betoptic S) bisacodyl 10 mg rectal suppository 10 mg [place] .Q48HR PRN Constipation 05/08/23 05/08/23 History (Dulcolax (bisacodyl)) calcium carbonate 500 mg calcium 500 mg PO DIRECTED PRN .HEART 05/08/23 History (1,250 mg) chewable tablet BURN cephalexin 500 mg capsule 2,000 mg PO DIRECTED PRN 05/08/23 05/08/23 History .prophylaxis cholecalciferol (vitamin D3) 50 50 mcg PO DAILY 05/08/23 05/08/23 History mcg (2,000 unit) tablet (Vitamin D3) cyanocobalamin (vitamin B-12) 1,000 mcg PO DAILY 05/08/23 05/08/23 History 1,000 mcg tablet (Vitamin B-12) diclofenac sodium 1 % topical gel 4 g topical DAILY PRN .shoulder 05/08/23 05/08/23 History pain docusate sodium 100 mg capsule 100 mg PO DAILY 05/08/23 05/08/23 History (Colace) famotidine 20 mg tablet 20 mg PO HS 05/08/23 05/08/23 History magnesium sulfate (laxative) 495 1 applic topical DIRECTED PRN 05/08/23 05/08/23 History mg/5 gram oral granules (Epsom .ingrown toenail Salt (laxative)) melatonin 1 mg tablet 1 mg PO HS PRN Insomnia 05/08/23 05/08/23 History metoprolol tartrate 25 mg tablet 25 mg PO BID 05/08/23 05/08/23 History metronidazole 500 mg tablet 500 mg PO DIRECTED 05/08/23 05/08/23 History spkwmvzk-fjn-hzniy acid 0.4 1 tab PO DAILY 05/08/23 05/08/23 History mg-lycopene 300 mcg-lutein 250 mcg tablet (Centrum Silver) nitroglycerin 0.4 mg sublingual 0.4 mg sublingual DIRECTED PRN 05/08/23 05/08/23 History tablet (Nitrostat) .chest pain pantoprazole 40 mg tablet,delayed 40 mg PO DAILY 05/08/23 05/08/23 History release polyethylene glycol 3350 17 gram 17 g PO DAILY 05/08/23 05/08/23 History oral powder packet (Miralax) triamcinolone acetonide 0.1 % 1 applic mucous membrane QID PRN 05/08/23 05/08/23 History dental paste .lower lip discomfort Allergies Allergy/AdvReac Type Severity Reaction Status Date / Time donepezil [From Aricept] Allergy Unknown Unknown Verified 05/08/23 02:43 codeine AdvReac Intermediate SEVERE Verified 05/08/23 02:43 NAUSEA clarithromycin AdvReac Unknown PT DOES Verified 05/08/23 02:43 NOT TOLERATE WELL Past Med/Surg History Medical History GERD (gastroesophageal reflux disease) Hyperlipidemia Hypertension Osteoarthritis Surgical History History of knee replacement RIGHT History of tonsillectomy Family History Mother Stroke Hypertension Father Heart disease Other No family history of adverse response to anesthesia No family history of bleeding disorder Denies family history of Cancer Asthma Social History Smoking Status: Former smoker Tobacco Type: Cigarettes Cigarettes Per Day: UNKNOWN AMOUNT; Do You Dip or Chew Tobacco: No; Hx Alcohol Use: No Hx Substance Use: No Preferred Language: Andorran Communication Ability: Effective marital status: / current occupational status: retired Feels Safe at Home: Yes Review of Systems A total of 10 systems reviewed and were otherwise negative Physical Exam Vital Signs Vital Signs - 24 hr 05/07/23 22:49 05/07/23 22:49 05/07/23 23:26 Pulse Rate 75 Pulse Rate [Right Finger] 75 Pulse Rate from SpO2 Sensor Respiratory Rate 14 14 Blood Pressure 162/71 H Blood Pressure [Right Arm] 162/71 H Blood Pressure Mean 101 Blood Pressure Mean [Right Arm] 101 Pulse Oximetry 98 98 91 Oxygen Delivery Method Room Air Room Air Nasal Cannula Oxygen Flow Rate 1 Sepsis Recent Fever Within 48 Hours No Sepsis New/Unexplained Change in Mental Status No Sepsis Action Taken by Nursing No Action Required 05/07/23 23:22 05/07/23 23:22 05/07/23 23:30 Pulse Rate 68 68 67 Pulse Rate [Right Finger] Pulse Rate from SpO2 Sensor 68 66 Respiratory Rate 12 19 Blood Pressure 144/75 H 144/86 H Blood Pressure [Right Arm] Blood Pressure Mean 98 105 Blood Pressure Mean [Right Arm] Pulse Oximetry 87 L 93 Oxygen Delivery Method Room Air Nasal Cannula Oxygen Flow Rate 1 Sepsis Recent Fever Within 48 Hours Sepsis New/Unexplained Change in Mental Status Sepsis Action Taken by Nursing 05/08/23 00:00 05/08/23 00:30 05/08/23 01:46 Pulse Rate 66 74 76 Pulse Rate [Right Finger] Pulse Rate from SpO2 Sensor 65 75 76 Respiratory Rate 15 16 18 Blood Pressure 163/79 H 176/103 H 138/99 Blood Pressure [Right Arm] Blood Pressure Mean 107 127 112 Blood Pressure Mean [Right Arm] Pulse Oximetry 93 92 96 Oxygen Delivery Method Nasal Cannula Nasal Cannula Nasal Cannula Oxygen Flow Rate 2 Sepsis Recent Fever Within 48 Hours Sepsis New/Unexplained Change in Mental Status Sepsis Action Taken by Nursing PHYSICAL EXAM: VITALS: Vitals are noted on the nurse's note and reviewed by myself. Vital signs stable. GENERAL: Pleasant elderly female following all commands without difficulties, in no acute distress, nondiaphoretic, well-developed well-nourished. SKIN: The skin was without obvious lacerations or abrasions. Capillary reflex less than 2 seconds. HEAD: Normocephalic atraumatic. EARS: External auditory canals clear, tympanic membranes pearly morales without erythema or effusion bilaterally. No hemotympanums. No schrader sign. No ma stoid tenderness. EYES: Pupils equal round and reactive to light and accommodation. Conjunctivae without injection, sclerae without icterus. Extraocular movements intact. NOSE: Patent, turbinates without inflammation or discharge. No sinus tenderness. No septal hematoma or bleeding. FACE: No facial bone tenderness. Full range of motion of the jaw without tenderness. MOUTH: Mucous membranes moist. Pharynx without erythema or exudate. Uvula midline. Airway patent. Tongue does not deviate. NECK: Supple without nuchal rigidity. Cervical spine is nontender. Full range of motion of the neck without tenderness. No JVD. HEART: Regular rate and rhythm LUNGS: Clear to auscultation bilaterally without wheezes, rales or rhonchi. No dullness to percussion. No retractions or accessory muscle use. No chest wall tenderness. ABDOMEN: Positive bowel sounds x 4. Normal tympanic percussion. Soft, tender left lower quadrant, without masses or organomegaly. No guarding or rebound tenderness. MUSCULOSKELETAL: No tenderness of the thoracic or lumbar spine. Right hip tenderness with increased pain with range of motion. Full range of motion without tenderness to palpation in all other extremities. Peripheral pulses 2+. NEURO: Patient was alert and oriented to person place and time. Normal sensation to light and sharp touch. No focal neurological deficits. Course Administered Medications Potassium Chloride/Sodium Chloride (Normal Saline W/20 Meq Kcl) 20 meq in 1,000 mls @ 80 mls/hr IV .[id number] [facility]; Protocol Stop: 06/07/23 02:47 Last Admin: 05/08/23 03:06 Dose: 80 mls/hr Documented By: EKF Discontinued Medications Morphine Sulfate (Morphine Sulfate 4 Mg/Ml 1 Ml Carp\Vial) 4 mg IV NOW STA Stop: 05/08/23 00:25 Last Admin: 05/08/23 00:37 Dose: 4 mg Documented By: TAVON Ondansetron HCl (Ondansetron Inj 2 Mg/Ml 2 Ml Vial) Confirm Administered Dose 4 mg .ROUTE .STK-MED ONE Stop: 05/08/23 01:30 Last Admin: 05/08/23 01:32 Dose: 4 mg Documented By: CARLAW Medical Decision Making Medical Records Attestation: I reviewed the patient's medical records. Home Medications Current Medication List: was personally reviewed by me Laboratory Data Attestation: I reviewed the patient's lab results. 05/07/23 23:06 05/07/23 23:06 Lab Results 05/07/23 05/07/23 05/07/23 Range/Units 23:06 23:06 23:06 WBC 6.58 (4.8-10.8) K/ul RBC 4.45 (4.20-5.40) M/uL Hgb 13.7 (12.0-16.0) g/dl Hct 41.0 (37.0-47.0) % MCV 92.1 (80.0-100.0) fL MCH 30.8 (25.0-34.0) pg MCHC 33.4 (32.0-36.0) g/dL RDW Std Deviation 42.1 (36.4-46.3) fL RDW Coeff of Robin 12.5 (11.5-14.5) % Plt Count 155 (130-400) K/uL MPV 12.0 (9.4-12.4) fL Immature Gran % (Auto) 0.5 % Neut % (Auto) 66.1 % Lymph % (Auto) 24.3 % Chaves % (Auto) 6.4 % Eos % (Auto) 2.1 % Baso % (Auto) 0.6 % Neut # (Auto) 4.35 (1.40-6.50) K/uL Lymph # (Auto) 1.60 (1.20-3.40) K/uL Chaves # (Auto) 0.42 (0.11-0.59) K/uL Eos # (Auto) 0.14 (0.00-0.50) K/uL Baso # (Auto) 0.04 (0.00-0.20) K/uL Immature Gran # (Auto) 0.03 (0.01-0.20) K/uL PT 11.1 (9.0-12.0) Seconds INR 1.0 (0.9-1.1) APTT 24.7 (21.0-31.0) Seconds PTT Ratio 0.9 Sodium 138 (136-145) mmol/L Potassium 3.6 (3.5-5.1) mmol/L Chloride 103 (98-107) mmol/L Carbon Dioxide 30 (21-32) mmol/L Anion Gap 5 (3-11) BUN 19 (6-23) mg/dl Creatinine 0.86 (0.6-1.2) mg/dl Est Cr Clr Drug Dosing 43.6 ml/min Est GFR ( Amer) 69.4 ml/min Est GFR (Non-Af Amer) 59.9 ml/min BUN/Creatinine Ratio 22.1 H (10-20) Glucose 106 H (70-99(Fasting)) mg/dl Calcium 9.5 (8.6-10.3) mg/dl Magnesium 1.9 (1.7-2.4) mg/dl Total Bilirubin 0.4 (0.2-1.0) mg/dl AST 14 (13-39) U/L ALT 12 (7-52) U/L Alkaline Phosphatase 53 (34-104) U/L Total Creatine Kinase 41 (26-192) U/L Troponin I High Sens 5.3 (0-14) pg/ml Total Protein 6.7 (6.0-8.3) gm/dl Albumin 4.3 (3.4-5.0) gm/dl Globulin 2.4 L (2.5-4.0) gm/dl Albumin/Globulin Ratio 1.8 (0.9-2) TSH 1.638 (0.300-4.500) uIu/ml Urine Color Urine Appearance (Clear) Urine pH (4.5-7.5) Ur Specific [place] (1.000-1.030) Urine Protein (Negative) Urine Glucose (UA) (Negative) Urine Ketones (Negative) Urine Blood (Negative) Urine Nitrite (Negative) Urine Bilirubin (Negative) Urine Urobilinogen (Negative) Ur Leukocyte Esterase (Negative) SARS-CoV-2, RNA, NAAT (NEGATIVE) 05/08/23 05/08/23 Range/Units 00:06 01:35 WBC (4.8-10.8) K/ul RBC (4.20-5.40) M/uL Hgb (12.0-16.0) g/dl Hct (37.0-47.0) % MCV (80.0-100.0) fL MCH (25.0-34.0) pg MCHC (32.0-36.0) g/dL RDW Std Deviation (36.4-46.3) fL RDW Coeff of Robin (11.5-14.5) % Plt Count (130-400) K/uL MPV (9.4-12.4) fL Immature Gran % (Auto) % Neut % (Auto) % Lymph % (Auto) % Chaves % (Auto) % Eos % (Auto) % Baso % (Auto) % Neut # (Auto) (1.40-6.50) K/uL Lymph # (Auto) (1.20-3.40) K/uL Chaves # (Auto) (0.11-0.59) K/uL Eos # (Auto) (0.00-0.50) K/uL Baso # (Auto) (0.00-0.20) K/uL Immature Gran # (Auto) (0.01-0.20) K/uL PT (9.0-12.0) Seconds INR (0.9-1.1) APTT (21.0-31.0) Seconds PTT Ratio Sodium (136-145) mmol/L Potassium (3.5-5.1) mmol/L Chloride (98-107) mmol/L Carbon Dioxide (21-32) mmol/L Anion Gap (3-11) BUN (6-23) mg/dl Creatinine (0.6-1.2) mg/dl Est Cr Clr Drug Dosing ml/min Est GFR ( Amer) ml/min Est GFR (Non-Af Amer) ml/min BUN/Creatinine Ratio (10-20) Glucose (70-99(Fasting)) mg/dl Calcium (8.6-10.3) mg/dl Magnesium (1.7-2.4) mg/dl Total Bilirubin (0.2-1.0) mg/dl AST (13-39) U/L ALT (7-52) U/L Alkaline Phosphatase (34-104) U/L Total Creatine Kinase (26-192) U/L Troponin I High Sens (0-14) pg/ml Total Protein (6.0-8.3) gm/dl Albumin (3.4-5.0) gm/dl Globulin (2.5-4.0) gm/dl Albumin/Globulin Ratio (0.9-2) TSH (0.300-4.500) uIu/ml Urine Color Yellow Urine Appearance Clear (Clear) Urine pH 6.5 (4.5-7.5) Ur Specific [place] 1.009 (1.000-1.030) Urine Protein Negative (Negative) Urine Glucose (UA) Negative (Negative) Urine Ketones Negative (Negative) Urine Blood Negative (Negative) Urine Nitrite Negative (Negative) Urine Bilirubin Negative (Negative) Urine Urobilinogen Negative (Negative) Ur Leukocyte Esterase Negative (Negative) SARS-CoV-2, RNA, NAAT NEGATIVE (NEGATIVE) Imaging Data Attestation: I personally reviewed and interpreted this imaging study as follows: Radiologist's Impression: Cervical Spine CT 05/07/23 23:12 Exam(s): CT C SPINE EXAM: CT Cervical Spine Without Intravenous Contrast CLINICAL HISTORY: Reason for exam: fall, on asa. TECHNIQUE: Axial computed tomography images of the cervical spine without intravenous contrast. Automated exposure control was utilized for the study. A dose lowering technique was utilized adhering to the principles of ALARA. COMPARISON: 05/09/2019. FINDINGS: Vertebrae: Diffuse osteopenia/osteoporosis. Multilevel endplate spondylosis with disc degenerative disease. Discs/spinal canal/neural foramina: Degenerative arthrosis at anterior C1-C2 articulation. Multilevel bilateral apophyseal hypertrophy contributing variable degrees of neuroforaminal encroachment. No central canal stenosis. Soft tissues: Unremarkable. Vasculature: Calcified vascular disease of the carotid arteries. Pleural space: Lung apices revealed no pneumothorax. IMPRESSION: Degenerative disease with no acute fracture or subluxation. Electronically signed by: Mayela Huston MD 05/08/23 02:[address] 05/07/23 23:12 Exam(s): CT HEAD Without Contrast EXAM: CT Head Without Intravenous Contrast CLINICAL HISTORY: Reason for exam: syncope. TECHNIQUE: Axial computed tomography images of the head/brain without intravenous contrast. Automated exposure control was utilized for the study. A dose lowering technique was utilized adhering to the principles of ALARA. COMPARISON: 12/28/2022. FINDINGS: Brain: Mild generalized brain atrophy. Decreased attenuation within the deep white matter compatible with microangiopathic disease. No hemorrhage. Ventricles: Nonspecific ventriculomegaly, unchanged. Bones/joints: Unremarkable. No acute fracture. Soft tissues: Unremarkable. Sinuses: Unremarkable as visualized. No acute sinusitis. Mastoid air cells: Unremarkable as visualized. No mastoid effusion. IMPRESSION: 1. Chronic changes as described, stable study in the interval. 2. No acute intracranial hemorrhage or space-occupying lesion. Electronically signed by: Mayela Huston MD 05/08/23 02:45 AM [facility] Narrative Prior records/ancillary studies reviewed and summarized above. Nursing notes reviewed. Additional history obtained from nursing. The patient's history was concerning for feeling lightheaded and falling. Differential diagnosis: Etiologies such as muscle skeletal injury, metabolic, infection, hypo/hyperglycemia, electrolyte abnormalities, cardiac sources, intracerebral event, toxicologic, neurologic, as well as others were entertained. Physical examination: As above. ER treatment provided: IV Lock An order was placed for continuous cardiac monitoring. The monitor shows a rate of 60-100 with a sinus rhythm per my interpretation. Tylenol was ordered Blancas was ordered for hip fracture On reassessment the patient felt better. Diagnostics interpretation by me: ECG: Ordered for lightheadedness EKG: Left axis, left bundle, first-degree, rate 67. Impression left bundle branch block with left axis deviation rate of 67 independently interpreted by myself The labs Independently Interpreted by myself revealed negative urine, negative troponin No worsening leukocytosis, stable H&H Imaging studies: Pelvis x-ray concerning for right hip fracture per my independent interpretation Chest x-ray with no acute consolidation, pneumothorax or free air per my indep endent interpretation Head and cervical CTs were reviewed and read by radiology as above. No bleed or fracture. Consultation: A consultation was placed with the hospitalist. The case was discussed and diagnostics were reviewed. The patient was evaluated in the ER for further treatment. Exam and history seem consistent with hip fracture. Blancas was placed. Labs and diagnostics were independently interpreted by myself. Radiology for the CAT scans. Medicine is consulted and patient will be admitted to the medical service for further evaluation and treatment. By the evaluation outlined above emergent etiologies such as infection, electrolyte abnormalities, cardiac sources, intracerebral event, toxologic, neurologic, abnormalities blood glucose, metabolic, as well as others were deemed relatively unlikely. The pt informed about the findings as listed above. All questions were answered and pleased with the treatment. The chart was completed utilizing [employer] Speech voice recognition software. Grammatical errors, random word insertions, pronoun errors, and incomplete se ntences are an occassional consequence of this system due to software limitations, ambient noise, and hardware issues. Any formal questions or concerns about the content, text, or information contained within the body of this dictation should be directly addressed to the physician biology research assistant for cla rification. Impression & Plan Closed fracture of right hip, Light-headedness, Fall Discharge Plan Visit Data Chief Complaint: Fall ED Provider: Barry Loco ED Midlevel Provider: Laney Murray Discharge Problem: Closed fracture of right hip, Light-headedness, Fall Patient Disposition: Admitted As Inpatient Condition: Fair Discharge Instructions Interventions: ED Discharge Assessment Last Done: 05/08/23 02:29 Closed fracture of right hip Qualifiers: Encounter type: initial encounter Qualified Code(s): S72.001A - Fracture of unspecified part of neck of right femur, initial encounter for closed fracture
[2023-05-08 00:23] LABS: Troponin I High Sensitivity 5.3 pg/ml (0-14)
[2023-05-08] MEDS ORDERED: MoRPHine SULFATE 4 MG/ML 1 ML CARP\\VIAL IV STA (00:24)
[2023-05-08 00:32] LABS: Thyroid Stimulating Hormone 1.638 uIu/ml (0.300-4.500)
[2023-05-08 00:35] LABS: Partial Thromboplastin Ratio 0.9; Partial Thromboplastin Time 24.7 Seconds (21.0-31.0); Prothrombin Time 11.1 Seconds (9.0-12.0)
[2023-05-08] MEDS ORDERED: ONDANSETRON INJ 2 MG/ML 2 ML VIAL ONE (01:29)
--- NOTE | 2023-05-08 01:54 | History & Physical Report ---
Date of Service May 08, 2023 Assessment & Plan (1) Closed fracture of right hip: (2) GERD (gastroesophageal reflux disease): (3) Hypertension: Plan Closed fracture of right hip- Status post mechanical fall NPO Acetaminophen 1 g IV every 6 hours as needed for mild pain or fever Morphine sulfate 4 mg IV every 3 hours as needed for moderate to severe pain Zofran 4 mg IV every 6 hours as needed NSS + KCl 20 mEq at 80 mils per hour Consult orthopedic surgery Hypertension- Continue metoprolol tartrate 25 mg p.o. twice daily with hold parameters Hold amlodipine and aspirin Hydralazine 10 mg IV every 4 hours as needed for systolic blood pressure above 160 GERD- Change pantoprazole to 40 mg IV daily History of Present Illness Chief Complaint: The patient presents to the emergency department with complaint of right hip pain after a fall where she felt generally weak and lightheaded, and her feet got tangled in her pants, and she fell onto her right hip and sustained immediate pain Primary Care Provider: Mary Gant The patient is an 87-year-old female with a past medical history including chronic low back pain, hyperlipidemia, GERD, hypertension, glaucoma, B12 deficiency, GERD and constipation. The patient presents to the emergency department due to symptoms as noted above. X-ray of pelvis and hip show a closed right hip fracture Additional imaging: CT head shows chronic changes, CT cervical spine shows chronic degeneration X-ray of chest is negative From the ED the patient received the following: Morphine sulfate 4 mg IV Allergies Allergy/AdvReac Type Severity Reaction Status Date / Time donepezil [From Aricept] Allergy Unknown Unknown Verified 05/08/23 02:43 codeine AdvReac Intermediate SEVERE Verified 05/08/23 02:43 NAUSEA clarithromycin AdvReac Unknown PT DOES Verified 05/08/23 02:43 NOT TOLERATE WELL Home Medications Medication Instructions Recorded Confirmed Type acetaminophen 500 mg tablet 500 mg PO TID 05/08/23 05/08/23 History (Tylenol Extra Strength) acetaminophen 650 mg rectal 650 mg LA Q4H PRN Fever Or Pain 05/08/23 05/08/23 History suppository amlodipine 2.5 mg tablet 2.5 mg PO DAILY 05/08/23 05/08/23 History amlodipine 5 mg tablet 5 mg PO DAILY 05/08/23 05/08/23 History amoxicillin 500 mg capsule 2,000 mg PO DIRECTED 05/08/23 05/08/23 History aspirin 81 mg tablet,delayed 81 mg PO DAILY 05/08/23 05/08/23 History release atorvastatin 20 mg tablet 20 mg PO QPM 05/08/23 05/08/23 History betaxolol 0.25 % eye 1 drp OPB BID 05/08/23 05/08/23 History drops,suspension (Betoptic S) bisacodyl 10 mg rectal suppository 10 mg LA .Q48HR PRN Constipation 05/08/23 05/08/23 History (Dulcolax (bisacodyl)) calcium carbonate 500 mg calcium 500 mg PO DIRECTED PRN .HEART 05/08/23 05/08/23 History (1,250 mg) chewable tablet BURN cephalexin 500 mg capsule 2,000 mg PO DIRECTED PRN 05/08/23 05/08/23 History .prophylaxis cholecalciferol (vitamin D3) 50 50 mcg PO DAILY 05/08/23 05/08/23 History mcg (2,000 unit) tablet (Vitamin D3) cyanocobalamin (vitamin B-12) 1,000 mcg PO DAILY 05/08/23 05/08/23 History 1,000 mcg tablet (Vitamin B-12) diclofenac sodium 1 % topical gel 4 g topical DAILY PRN .shoulder 05/08/23 05/08/23 History pain docusate sodium 100 mg capsule 100 mg PO DAILY 05/08/23 05/08/23 History (Colace) famotidine 20 mg tablet 20 mg PO HS 05/08/23 05/08/23 History magnesium sulfate (laxative) 495 1 applic topical DIRECTED PRN 05/08/23 05/08/23 History mg/5 gram oral granules (Epsom .ingrown toenail Salt (laxative)) melatonin 1 mg tablet 1 mg PO HS PRN Insomnia 05/08/23 05/08/23 History metoprolol tartrate 25 mg tablet 25 mg PO BID 05/08/23 05/08/23 History metronidazole 500 mg tablet 500 mg PO DIRECTED 05/08/23 05/08/23 History sbzbeaxz-hsb-eyiqm acid 0.4 1 tab PO DAILY 05/08/23 05/08/23 History mg-lycopene 300 mcg-lutein 250 mcg tablet (Centrum Silver) nitroglycerin 0.4 mg sublingual 0.4 mg sublingual DIRECTED PRN 05/08/23 05/08/23 History tablet (Nitrostat) .chest pain pantoprazole 40 mg tablet,delayed 40 mg PO DAILY 05/08/23 05/08/23 History release polyethylene glycol 3350 17 gram 17 g PO DAILY 05/08/23 05/08/23 History oral powder packet (Miralax) triamcinolone acetonide 0.1 % 1 applic mucous membrane QID PRN 05/08/23 05/08/23 History dental paste .lower lip discomfort Past Med/Surg History Medical History GERD (gastroesophageal reflux disease) Hyperlipidemia Hypertension Osteoarthritis Surgical History History of knee replacement RIGHT History of tonsillectomy Family History Mother Stroke Hypertension Father Heart disease Other No family history of adverse response to anesthesia No family history of bleeding disorder Denies family history of Cancer Asthma Social History Smoking Status: Unknown if ever smoked Tobacco Type: Cigarettes Cigarettes Per Day: UNKNOWN AMOUNT; Second Hand Exposure: No; Do You Dip or Chew Tobacco: No; Hx Alcohol Use: No Hx Substance Use: No Preferred Language: Latvian Communication Ability: Effective Cardiology Teacher Required: No Beliefs That Will Affect Care: None marital status: / Current Living Situation: Other Current Living Situation Comment: [facility] living [facility] current occupational status: retired Feels Safe at Home: Yes Assistive Devices: Glasses and Walker Review of Systems Review of Systems: The patient denies chest pain, palpitations, shortness of breath, dyspnea on exertion, cough, lower extremity swelling, sore throat, fevers, chills, sweats, nausea, vomiting, diarrhea , constipation, abdominal pain, pelvic pain, blood in urine or stool, dysuria, urinary frequency or urgency, headache, memory loss, loss of consciousness, rash, abnormal bruising or bleeding, focal or generalized weakness, numbness or tingling in arms, generalized arthralgias or myalgias, back or neck pain, or night sweats. The review of systems is otherwise negative other than for that already noted above, and at least 10 systems have been reviewed. Physical Exam Physical Exam: The patient is awake, alert and oriented 3, well developed and well nourished, normocephalic and atraumatic, lying in bed and in mild acute distress. HEENT--PERRL, EOMI, mucous membranes and oropharynx dry. Neck--supple. No JVD. No bruits. Thyroid normal, trachea midline, no adenopathy. Heart--normal S1 and S2. No murmurs, rubs or gallops. Lungs--clear bilaterally, no respiratory distress, no accessory muscle use. Abdomen--normal bowel sounds and soft. Nontender. Nondistended, no hernias or masses, no organomegaly. Extremities--limited exam due to right hip pain Dermatologic--normal skin turgor, normal color, no abnormal lymph nodes, no rash. Neurologic--cranial nerves II through XII grossly intact. Rheumatologic--limited exam due to right hip pain Psychiatric--normal affect. Results & Data Results & Data Vital Signs (Past 12 Hours) Vital Signs Pulse Pulse Resp BP BP Pulse Ox O2 Del Method 05/08/23 00:30 74 16 176/103 H 92 Nasal Cannula 05/08/23 00:00 66 15 163/79 H 93 Nasal Cannula 05/07/23 23:30 67 19 144/86 H 93 Nasal Cannula 05/07/23 23:22 68 05/07/23 23:22 68 12 144/75 H 87 L Room Air 05/07/23 23:26 91 Nasal Cannula 05/07/23 22:49 75 14 162/71 H 98 Room Air 05/07/23 22:49 75 14 162/71 H 98 Room Air O2 Flow Rate 05/08/23 00:30 05/08/23 00:00 05/07/23 23:30 1 05/07/23 23:22 05/07/23 23:22 05/07/23 23:26 1 05/07/23 22:49 05/07/23 22:49 Laboratory Results Laboratory Results WBC 6.58 K/ul (4.8-10.8) 05/07/23 23:06 RBC 4.45 M/uL (4.20-5.40) 05/07/23 23:06 Hgb 13.7 g/dl (12.0-16.0) 05/07/23 23: Hct 41.0 % (37.0-47.0) 05/07/23 23: MCV 92.1 fL (80.0-100.0) 05/07/23 23:06 MCH 30.8 pg (25.0-34.0) 05/07/23 23: MCHC 33.4 g/dL (32.0-36.0) 05/07/23 23: RDW Std Deviation 42.1 fL (36.4-46.3) 05/07/23 23: RDW Coeff of Robin 12.5 % (11.5-14.5) 05/07/23 23: Plt Count 155 K/uL (130-400) 05/07/23 23: MPV 12.0 fL (9.4-12.4) 05/07/23 23: Immature Gran % (Auto) 0.5 % 05/07/23 23: Neut % (Auto) 66.1 % 05/07/23 23:06 Lymph % (Auto) 24.3 % 05/07/23 23:06 Stanley % (Auto) 6.4 % 05/07/23 23:06 Eos % (Auto) 2.1 % 05/07/23 23: Baso % (Auto) 0.6 % 05/07/23 23: Neut # (Auto) 4.35 K/uL (1.40-6.50) 05/07/23 23: Lymph # (Auto) 1.60 K/uL (1.20-3.40) 05/07/23 23: Stanley # (Auto) 0.42 K/uL (0.11-0.59) 05/07/23 23:06 Eos # (Auto) 0.14 K/uL (0.00-0.50) 05/07/23 23: Baso # (Auto) 0.04 K/uL (0.00-0.20) 05/07/23 23:06 Immature Gran # (Auto) 0.03 K/uL (0.01-0.20) 05/07/23 23: PT 11.1 Seconds (9.0-12.0) 05/07/23 23:06 INR 1.0 (0.9-1.1) 05/07/23 23:06 APTT 24.7 Seconds (21.0-31.0) 05/07/23 23:06 PTT Ratio 0.9 05/07/23 23:06 Sodium 138 mmol/L (136-145) 05/07/23 23:06 Potassium 3.6 mmol/L (3.5-5.1) 05/07/23 23:06 Chloride 103 mmol/L (98-107) 05/07/23 23:06 Carbon Dioxide 30 mmol/L (21-32) 05/07/23 23:06 Anion Gap 5 (3-11) 05/07/23 23:06 BUN 19 mg/dl (6-23) 05/07/23 23:06 Creatinine 0.86 mg/dl (0.6-1.2) 05/07/23 23:06 Est Cr Clr Drug Dosing 43.6 ml/min 05/07/23 23:06 Est GFR ( Amer) 69.4 ml/min 05/07/23 23:06 Est GFR (Non-Af Amer) 59.9 ml/min 05/07/23 23:06 BUN/Creatinine Ratio 22.1 (10-20) H 05/07/23 23:06 Glucose 106 mg/dl (70-99(Fasting)) H 05/07/23 23:06 Calcium 9.5 mg/dl (8.6-10.3) 05/07/23 23:06 Magnesium 1.9 mg/dl (1.7-2.4) 05/07/23 23:06 Total Bilirubin 0.4 mg/dl (0.2-1.0) 05/07/23 23:06 AST 14 U/L (13-39) 05/07/23 23:06 ALT 12 U/L (7-52) 05/07/23 23:06 Alkaline Phosphatase 53 U/L (34-104) 05/07/23 23:06 Total Creatine Kinase 41 U/L (26-192) 05/07/23 23:06 Troponin I High Sens 5.3 pg/ml (0-14) 05/07/23 23:06 Total Protein 6.7 gm/dl (6.0-8.3) 05/07/23 23:06 Albumin 4.3 gm/dl (3.4-5.0) 05/07/23 23:06 Globulin 2.4 gm/dl (2.5-4.0) L 05/07/23 23:06 Albumin/Globulin Ratio 1.8 (0.9-2) 05/07/23 23:06 TSH 1.638 uIu/ml (0.300-4.500) 05/07/23 23:06 Urine Color Yellow 05/08/23 00:06 Urine Appearance Clear (Clear) 05/08/23 00:06 Urine pH 6.5 (4.5-7.5) 05/08/23 00:06 Ur Specific [place] 1.009 (1.000-1.030) 05/08/23 00:06 Urine Protein Negative (Negative) 05/08/23 00:06 Urine Glucose (UA) Negative (Negative) 05/08/23 00:06 Urine Ketones Negative (Negative) 05/08/23 00:06 Urine Blood Negative (Negative) 05/08/23 00:06 Urine Nitrite Negative (Negative) 05/08/23 00:06 Urine Bilirubin Negative (Negative) 05/08/23 00:06 Urine Urobilinogen Negative (Negative) 05/08/23 00:06 Ur Leukocyte Esterase Negative (Negative) 05/08/23 00:06 SARS-CoV-2, RNA, NAAT NEGATIVE (NEGATIVE) 05/08/23 01:35 Blood Type A Positive 05/08/23 03:15 Antibody Screen NEGATIVE 05/08/23 03:[address] 05/07/23 23:12 Exam(s): CT C SPINE EXAM: CT Cervical Spine Without Intravenous Contrast CLINICAL HISTORY: Reason for exam: fall, on asa. TECHNIQUE: Axial computed tomography images of the cervical spine without intravenous contrast. Automated exposure control was utilized for the study. A dose lowering technique was utilized adhering to the principles of ALARA. COMPARISON: 05/09/2019. FINDINGS: Vertebrae: Diffuse osteopenia/osteoporosis. Multilevel endplate spondylosis with disc degenerative disease. Discs/spinal canal/neural foramina: Degenerative arthrosis at anterior C1-C2 articulation. Multilevel bilateral apophyseal hypertrophy contributing variable degrees of neuroforaminal encroachment. No central canal stenosis. Soft tissues: Unremarkable. Vasculature: Calcified vascular disease of the carotid arteries. Pleural space: Lung apices revealed no pneumothorax. IMPRESSION: Degenerative disease with no acute fracture or subluxation. Electronically signed by: Mayela Huston MD 05/08/23 02:[address] 05/07/23 23:12 Exam(s): CT HEAD Without Contrast EXAM: CT Head Without Intravenous Contrast CLINICAL HISTORY: Reason for exam: syncope. TECHNIQUE: Axial computed tomography images of the head/brain without intravenous contrast. Automated exposure control was utilized for the study. A dose lowering technique was utilized adhering to the principles of ALARA. COMPARISON: 12/28/2022. FINDINGS: Brain: Mild generalized brain atrophy. Decreased attenuation within the deep white matter compatible with microangiopathic disease. No hemorrhage. Ventricles: Nonspecific ventriculomegaly, unchanged. Bones/joints: Unremarkable. No acute fracture. Soft tissues: Unremarkable. Sinuses: Unremarkable as visualized. No acute sinusitis. Mastoid air cells: Unremarkable as visualized. No mastoid effusion. IMPRESSION: 1. Chronic changes as described, stable study in the interval. 2. No acute intracranial hemorrhage or space-occupying lesion. Electronically signed by: Mayela Huston MD 05/08/23 02:45 AM Code Status & VTE Plan Code Status Full code VTE Prophylaxis Plan VTE Prophylaxis will be ordered: Yes PG Care Time/CCT Total # of Minutes Spent Total Time Spent with Patient: Total time spent is greater than 50% in coordination of care (as documented) at patient's floor/unit and/or counseling patient: Coding Level of Care Code 83597 INT INP/OBS CARE 3/75MIN Diagnoses Closed fracture of right hip S72.001A Encounter type: initial encounter GERD (gastroesophageal reflux disease) K21.9 Hypertension I10 (1) Closed fracture of right hip Encounter type: initial encounter Qualified Code(s): S72.001A - Fracture of unspecified part of neck of right femur, initial encounter for closed fracture
--- NOTE | 2023-05-08 02:45 | CT Scan Report ---
Exam(s): CT C SPINE EXAM: CT Cervical Spine Without Intravenous Contrast CLINICAL HISTORY: Reason for exam: fall, on asa. TECHNIQUE: Axial computed tomography images of the cervical spine without intravenous contrast. Automated exposure control was utilized for the study. A dose lowering technique was utilized adhering to the principles of ALARA. COMPARISON: 05/09/2019. FINDINGS: Vertebrae: Diffuse osteopenia/osteoporosis. Multilevel endplate spondylosis with disc degenerative disease. Discs/spinal canal/neural foramina: Degenerative arthrosis at anterior C1-C2 articulation. Multilevel bilateral apophyseal hypertrophy contributing variable degrees of neuroforaminal encroachment. No central canal stenosis. Soft tissues: Unremarkable. Vasculature: Calcified vascular disease of the carotid arteries. Pleural space: Lung apices revealed no pneumothorax. IMPRESSION: Degenerative disease with no acute fracture or subluxation. Electronically signed by: Mayela Huston MD 05/08/23 02:44 AM
--- NOTE | 2023-05-08 02:46 | CT Scan Report ---
Exam(s): CT HEAD Without Contrast EXAM: CT Head Without Intravenous Contrast CLINICAL HISTORY: Reason for exam: syncope. TECHNIQUE: Axial computed tomography images of the head/brain without intravenous contrast. Automated exposure control was utilized for the study. A dose lowering technique was utilized adhering to the principles of ALARA. COMPARISON: 12/28/2022. FINDINGS: Brain: Mild generalized brain atrophy. Decreased attenuation within the deep white matter compatible with microangiopathic disease. No hemorrhage. Ventricles: Nonspecific ventriculomegaly, unchanged. Bones/joints: Unremarkable. No acute fracture. Soft tissues: Unremarkable. Sinuses: Unremarkable as visualized. No acute sinusitis. Mastoid air cells: Unremarkable as visualized. No mastoid effusion. IMPRESSION: 1. Chronic changes as described, stable study in the interval. 2. No acute intracranial hemorrhage or space-occupying lesion. Electronically signed by: Mayela Huston MD 05/08/23 02:45 AM
[2023-05-08] MEDS ORDERED: NITROGLYCERIN SL 0.4 MG/TAB TAB SL PRN (02:48)
[2023-05-08] MEDS ORDERED: MAGNESIUM HYDROXIDE SUSP 30 ML UDC PO PRN (02:48)
[2023-05-08] MEDS ORDERED: ONDANSETRON INJ 2 MG/ML 2 ML VIAL IV PRN (02:48)
[2023-05-08] MEDS ORDERED: bisacodyL 10 MG SUPP PR PRN (02:48)
[2023-05-08] MEDS ORDERED: NALOXONE HCL 0.4 MG/1 ML VIAL/CARP IV PRN (02:48)
[2023-05-08] MEDS: NSS + 20MEQ KCL 20 MEQ/1,000 ML BAG IV SCH ×2 (03:06→19:48)
[2023-05-08] MEDS: ACETAMINOPHEN 1,000 MG/100 ML VIAL IV PRN (04:22)
[2023-05-08] MEDS ORDERED: hydrALAZINE HCL 20 MG/ML VIAL IV PRN ×2 (04:38→09:54)
[2023-05-08] MEDS ORDERED: ceFAZolin 2000MG 2,000 MG/15 ML SYR IV SCH (06:00)
--- NOTE | 2023-05-08 06:38 | XRay Report ---
XR chest 1V portable HISTORY: 87 years-old Female dizzy acute dizziness COMPARISON: 09/29/2022 TECHNIQUE: AP view of the chest FINDINGS: Cardiac silhouette is enlarged. Atherosclerosis of the aorta. Chronic interstitial coarsening. No pne umothorax, pleural effusion or airspace consolidation. Bones appear grossly intact. IMPRESSION: Cardiomegaly without acute process. ACT 112: Negative or not required by law. The above report was generated using voice recognition software. It may contain grammatical, syntax o r spelling errors. Electronically signed by: Melvin Quinonez M.D. 05/08/2023 6:36 AM
--- NOTE | 2023-05-08 06:40 | XRay Report ---
XR hip RT 2V w pelvis HISTORY: 87 years-old Female fall, pain acute right hip pain status post fall COMPARISON: 12/28/2022 TECHNIQUE: AP view the pelvis with 2 views of the right hip FINDINGS: Mild osteoarthritis of the hips. There is a subtle acute nondisplaced transcervical fracture of the r ight femoral neck with minimal impaction. No dislocation, additional acute fracture identified. Moder ate soft tissue swelling lateral to the right hip. IMPRESSION: Acute nondisplaced transcervical right femoral neck fracture. ACT 112: Negative or not required by law. The above report was generated using voice recognition software. It may contain grammatical, syntax o r spelling errors. Electronically signed by: Melvin Quinonez M.D. 05/08/2023 6:39 AM
[2023-05-08] MEDS: MoRPHine SULFATE 4 MG/ML 1 ML CARP\\VIAL IV PRN ×2 (07:35→22:41)
[2023-05-08] MEDS: METOPROLOL TARTRATE 25 MG TAB PO SCH ×2 (10:15→19:49)
[2023-05-08] MEDS: BETAXOLOL HCL 0.25% OPB SCH ×2 (10:16→19:49)
[2023-05-08] MEDS ORDERED: OPTIRAY 320 100ml IV ONE (10:54)
[2023-05-08] MEDS: PANTOprazole 40 MG in SYRINGE 0 ML IV SCH (11:06)
--- NOTE | 2023-05-08 11:30 | CT Scan Report ---
ABDOMEN AND PELVIS CT WITH IV CONTRAST CT DOSE: 893.83 mGy.cm HISTORY: Acute left lower quadrant abdominal pain llq pain TECHNIQUE: Multiaxial CT images of the abdomen and pelvis were performed following the IV administrat ion of 93 cc of Optiray, A dose lowering technique was utilized adhering to the principles of ALARA. COMPARISON STUDY: 02/27/2016 FINDINGS: Cardiomegaly with mitral annular calcifications. Mild bibasilar atelectasis/scarring with bronchiecta sis. No free air. There is an ill-defined wedge-shaped 5.5 cm area of decreased attenuation within th e mid spleen. No definite perisplenic fluid. Moderately atrophic pancreas. Unremarkable adrenal gland s. Cholecystectomy with likely postsurgical biliary ductal dilation. Liver is otherwise unremarkable. Patent portal vein. 4 mm nonobstructing calculus of the inferior pole right kidney. There is unchanged chronic mild right -sided hydronephrosis. Unremarkable left kidney. Decompressed bladder with Blancas catheter. Air within the bladder lumen is likely secondary to instrumentation. Fibroid uterus. Atherosclerosis of the aor ta. High-grade narrowing at the origins of the celiac from, superior and inferior mesenteric arteries . No lymphadenopathy. No bowel obstruction or bowel wall thickening. Moderate fecal retention. Colonic diverticulosis. The appendix is not definitively seen. Unremarkable soft tissues. Thank you nondisplaced transcervical ri ght femoral neck fracture with mild impaction. IMPRESSION: 1. 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 2. Acute mildly impacted transcervical right femoral neck fracture. 3. Cholecystectomy with likely postsurgical biliary ductal dilation. This could be correlated with LF Ts. 4. Unchanged appearance of the chronic mild right-sided hydronephrosis. 5. Right nephrolithiasis. 6. Additional findings as above. ACT 112: Negative or not required by law. The above report was generated using voice recognition software. It may contain grammatical, syntax o r spelling errors. Electronically signed by: Melvin Quinonez M.D. 05/08/2023 11:28 AM
--- NOTE | 2023-05-08 14:45 | Electrocardiogram Report ---
Test Reason : Blood Pressure : / mmHG Vent. Rate : 067 BPM Atrial Rate : 067 BPM P-R Int : 246 ms QRS Dur : 160 ms QT Int : 502 ms P-R-T Axes : 030 -51 107 degrees QTc Int : 530 ms Sinus rhythm with 1st degree A-V block Possible Left atrial enlargement Left axis deviation Left bundle branch block Abnormal ECG When compared with ECG of 29-SEP-2022 11:04, IA interval has increased T wave inversion less evident in Lateral leads Confirmed by Bradley Medina ([id number]) on 05/08/2023 2:45:38 PM Referred By: REFERRED SELF Confirmed By:Bradley Medina
--- NOTE | 2023-05-08 16:11 | Hospitalist Progress Note ---
Date of Service May 08, 2023 Assessment & Plan (1) Closed fracture of right hip: Plan: Orthopedic consultation pending. Anticipate either open reduction internal f ixation or total hip arthroplasty. N.p.o. after midnight tonight. Continue IV fluids (2) GERD (gastroesophageal reflux disease): Plan: Stable. Continue PPI therapy (3) Hypertension: Plan: Stable. Continue metoprolol. Amlodipine on hold Plan Will need SNF for rehab placement postoperatively. Admission and Anticipated Discharge Date Admission Date: May 08, 2023 Subjective Alert and oriented. Right hip pain with movement as expected. Orthopedic consultation remains pending. She was given a diet today but will reestablish n.p.o. status at midnight tonight. Continue IV fluids for now. Continue metoprolol. Amlodipine and aspirin are on hold. Review of Systems Review of Systems: Constitutional-no fever or chills ENT-no blurred vision, no double vision, no epistaxis, no sore throat Respiratory-no cough, no wheezing, no shortness of breath Cardiac-no palpitations, no chest pain, no syncope GI-no nausea, vomiting, diarrhea, melena, hematochezia -no urinary retention, no urinary incontinence, no dysuria, no hematuria Musculoskeletal-right hip pain from underlying fracture as expected Skin-no bruising, no rashes, no pruritus Neuro-no isolated weakness, no paresthesia, no weakness Psych-no depression, no anxiety Physical Exam Physical Exam: General-alert and oriented x3, no fevers, no chills HEENT-head atraumatic and normocephalic, pupils equal and reactive to light, ext raocular muscles intact Neck-no lymphadenopathy or thyromegaly, trachea midline Chest-clear to auscultation percussion. No rales wheezing or rhonchi Cardiac-regular rate and rhythm, normal S1 and S2 Abdomen-normal bowel sounds, nontender, no hepatosplenomegaly Extremities-right hip discomfort with any movement. No peripheral edema Neuro-cranial nerves II through XII intact, motor and sensory function within normal limits, strength symmetrical , no focal deficits Psych-normal affect, normal mood Results & Data Results & Data Vital Signs (Past 12 Hours) Vital Signs Temp Pulse Resp BP Pulse Ox O2 Del Method O2 Flow Rate 05/08/23 14:48 36.7 C 72 16 165/76 H 93 Nasal Cannula 3 05/08/23 11:21 Nasal Cannula 2 05/08/23 06:51 36.7 C 78 18 130/66 93 Room Air Laboratory Results 05/07/23 23:06 05/07/23 23:06 PG Care Time/CCT Total # of Minutes Spent Total Time Spent with Patient: Total time spent is greater than 50% in coordination of care (as documented) at patient's floor/unit and/or counseling patient: Coding Level of Care Code 17531 SUB INP/OBS CARE 3/50MIN Diagnoses Closed fracture of right hip S72.001A Encounter type: initial encounter GERD (gastroesophageal reflux disease) K21.9 Hypertension I10 (1) Closed fracture of right hip Encounter type: initial encounter Qualified Code(s): S72.001A - Fracture of unspecified part of neck of right femur, initial encounter for closed fracture
--- NOTE | 2023-05-08 16:17 | Anesthesiology Consultation ---
Date of Service May 08, 2023 Assessment & Plan (1) Encounter for pre-operative examination: Chart Review Chart Review: Acceptable Risk for Surgery and Patient NOT seen in Pre Admission Testing Consults Requested none History Surgery Operation Date: 05/09/23 07:30 Proposed Procedures p Right Femoral Neck Open Reduction Internal Fixation - Melvin Martinez DO Height/Weight Height: 5 ft 5 in Weight: 70.3 kg Allergies Allergy/AdvReac Type Severity Reaction Status Date / Time donepezil [From Aricept] Allergy Unknown Unknown Verified 05/08/23 02:43 codeine AdvReac Intermediate SEVERE Verified 05/08/23 02:43 NAUSEA clarithromycin AdvReac Unknown PT DOES Verified 05/08/23 02:43 NOT TOLERATE WELL Medications Home Medications Medication Instructions Recorded Confirmed Last Taken acetaminophen 500 mg tablet 500 mg PO TID 05/08/23 05/08/23 Unknown (Tylenol Extra Strength) acetaminophen 650 mg rectal 650 mg [place] Q4H PRN Fever Or Pain 05/08/23 05/08/23 Unknown suppository amlodipine 2.5 mg tablet 2.5 mg PO DAILY 05/08/23 05/08/23 Unknown amlodipine 5 mg tablet 5 mg PO DAILY 05/08/23 05/08/23 Unknown amoxicillin 500 mg capsule 2,000 mg PO DIRECTED 05/08/23 05/08/23 Unknown aspirin 81 mg tablet,delayed 81 mg PO DAILY 05/08/23 05/08/23 Unknown release atorvastatin 20 mg tablet 20 mg PO QPM 05/08/23 05/08/23 Unknown betaxolol 0.25 % eye 1 drp OPB BID 05/08/23 05/08/23 Unknown drops,suspension (Betoptic S) bisacodyl 10 mg rectal suppository 10 mg [place] .Q48HR PRN Constipation 05/08/23 05/08/23 Unknown (Dulcolax (bisacodyl)) calcium carbonate 500 mg calcium 500 mg PO DIRECTED PRN .HEART 05/08/23 05/08/23 Unknown (1,250 mg) chewable tablet BURN cephalexin 500 mg capsule 2,000 mg PO DIRECTED PRN 05/08/23 05/08/23 Unknown .prophylaxis cholecalciferol (vitamin D3) 50 50 mcg PO DAILY 05/08/23 05/08/23 Unknown mcg (2,000 unit) tablet (Vitamin D3) cyanocobalamin (vitamin B-12) 1,000 mcg PO DAILY 05/08/23 05/08/23 Unknown 1,000 mcg tablet (Vitamin B-12) diclofenac sodium 1 % topical gel 4 g topical DAILY PRN .shoulder 05/08/23 05/08/23 Unknown pain docusate sodium 100 mg capsule 100 mg PO DAILY 05/08/23 05/08/23 Unknown (Colace) famotidine 20 mg tablet 20 mg PO HS 05/08/23 05/08/23 Unknown magnesium sulfate (laxative) 495 1 applic topical DIRECTED PRN 05/08/23 05/08/23 Unknown mg/5 gram oral granules (Epsom .ingrown toenail Salt (laxative)) melatonin 1 mg tablet 1 mg PO HS PRN Insomnia 05/08/23 05/08/23 Unknown metoprolol tartrate 25 mg tablet 25 mg PO BID 05/08/23 05/08/23 Unknown metronidazole 500 mg tablet 500 mg PO DIRECTED 05/08/23 05/08/23 Unknown nitgxpdd-kik-fuybf acid 0.4 1 tab PO DAILY 05/08/23 05/08/23 Unknown mg-lycopene 300 mcg-lutein 250 mcg tablet (Centrum Silver) nitroglycerin 0.4 mg sublingual 0.4 mg sublingual DIRECTED PRN 05/08/23 05/08/23 Unknown tablet (Nitrostat) .chest pain pantoprazole 40 mg tablet,delayed 40 mg PO DAILY 05/08/23 05/08/23 Unknown release polyethylene glycol 3350 17 gram 17 g PO DAILY 05/08/23 05/08/23 Unknown oral powder packet (Miralax) triamcinolone acetonide 0.1 % 1 applic mucous membrane QID PRN 05/08/23 05/08/23 Unknown dental paste .lower lip discomfort Active Medications Generic Name Dose Route Start Last Admin Trade Name Freq PRN Reason Stop Dose Admin Betaxolol HCl 1 drops 05/08/23 09:00 05/08/23 10:16 Betaxolol Hcl 0.25% Op Susp 10 Ml Btl OPB 06/07/23 08:59 1 drops BID NAZANIN Administration Acetaminophen 1,000 mg in 100 mls @ 400 mls/hr 05/08/23 02:48 05/08/23 04:37 Ofirmev IV 05/11/23 02:47 Infused Q8H PRN Infusion Pain or Fever Potassium Chloride/Sodium Chloride 20 meq in 1,000 mls @ 80 mls/hr 05/08/23 03:15 05/08/23 03:06 Normal Saline W/20 Meq Kcl IV 06/07/23 02:47 80 mls/hr .[id number] NAZANIN Administration Protocol Pantoprazole Sodium 40 mg/ 10 mls @ 5 mls/min 05/08/23 11:00 05/08/23 11:06 Syringe IV 06/07/23 10:59 5 mls/min DAILY@1100 NAZANIN Administration Metoprolol Tartrate 25 mg 05/08/23 09:00 05/08/23 10:15 Metoprolol Tartrate 25 Mg Tab PO 06/07/23 08:59 25 mg BID NAZANIN Administration Morphine Sulfate 4 mg 05/08/23 02:48 05/08/23 07:35 Morphine Sulfate 4 Mg/Ml 1 Ml Carp\Vial IV 05/22/23 02:47 4 mg Q3H PRN Administration Mod-Sev Pain (Scale 4-10) Ondansetron HCl 4 mg 05/08/23 02:48 05/08/23 07:34 Ondansetron Inj 2 Mg/Ml 2 Ml Vial IV 06/07/23 02:47 4 mg Q6H PRN Administration Nausea Past Medical History Medical History (Updated 05/08/23 @ 16:19 by Kenyon Houser MD) Closed fracture of right hip Encounter for pre-operative examination GERD (gastroesophageal reflux disease) Hyperlipidemia Hypertension Osteoarthritis Chief Complaint: The patient presents to the emergency department with complaint of right hip pain after a fall where she felt generally weak and lightheaded, and her feet got tangled in her pants, and she fell onto her right hip and sustained immediate pain Primary Care Provider: Mary Gant The patient is an 87-year-old female with a past medical history including chron ic low back pain, hyperlipidemia, GERD, hypertension, glaucoma, B12 deficiency, GERD and constipation Past Family History Family History Mother Stroke Hypertension Father Heart disease Other No family history of adverse response to anesthesia No family history of bleeding disorder Denies family history of Cancer Asthma Past Surgical History Surgical History History of knee replacement RIGHT History of tonsillectomy Social History Smoking Status: Unknown if ever smoked Smoking cigarettes per day: UNKNOWN AMOUNT Do You Dip or Chew Tobacco: No Hx Alcohol Use: No Hx Substance Use: No substance use type: does not use Physical Exam Vital Signs Last Vital Signs Temp 36.7 C 05/08/23 14:48 Pulse 72 05/08/23 14:48 Resp 16 05/08/23 14:48 BP 165/76 H 05/08/23 14:48 Pulse Ox 93 05/08/23 14:48 O2 Del Method Nasal Cannula 05/08/23 14:48 O2 Flow Rate 3 05/08/23 14:48 Testing Laboratory Results 05/07/23 23:06 05/07/23 23:06 PT 11.1 Seconds (9.0-12.0) 05/07/23 23:06 INR 1.0 (0.9-1.1) 05/07/23 23:06 APTT 24.7 Seconds (21.0-31.0) 05/07/23 23:06 Urine Color Yellow 05/08/23 00:06 Urine Appearance Clear (Clear) 05/08/23 00:06 Urine pH 6.5 (4.5-7.5) 05/08/23 00:06 Ur Specific [place] 1.009 (1.000-1.030) 05/08/23 00:06 Urine Protein Negative (Negative) 05/08/23 00:06 Urine Glucose (UA) Negative (Negative) 05/08/23 00:06 Urine Ketones Negative (Negative) 05/08/23 00:06 Urine Nitrite Negative (Negative) 05/08/23 00:06 Ur Leukocyte Esterase Negative (Negative) 05/08/23 00:06 Blood Type A Positive 05/08/23 03:15 Antibody Screen NEGATIVE 05/08/23 03:15 Electrocardiogram DICTATED BY:Bradley Medina MD Test Reason : Blood Pressure : / mmHG Vent. Rate : 067 BPM Atrial Rate : 067 BPM P-R Int : 246 ms QRS Dur : 160 ms QT Int : 502 ms P-R-T Axes : 030 -51 107 degrees QTc Int : 530 ms Sinus rhythm with 1st degree A-V block Possible Left atrial enlargement Left axis deviation Left bundle branch block Abnormal ECG When compared with ECG of 29-SEP-2022 11:04, NM interval has increased T wave inversion less evident in Lateral leads Confirmed by Bradley Medina ([id number]) on 05/08/2023 2:45:38 PM
[2023-05-09 06:55] LABS: Basophils # (auto) 0.03 K/uL (0.00-0.20); Basophils % (auto) 0.5 %; Eosinophils # (auto) 0.33 K/uL (0.00-0.50); Hematocrit (blood only) 38.7 % (37.0-47.0); Hemoglobin 12.9 g/dl (12.0-16.0); Immature Granulocytes # (auto) 0.03 K/uL (0.01-0.20); Immature Granulocytes % (auto) 0.5 %; Lymphocytes # (auto) 0.65 K/uL (1.20-3.40); Lymphocytes % (auto) 9.9 %; Mean Corpuscular Hemoglobin 30.7 pg (25.0-34.0); Mean Corpuscular Hgb Conc 33.3 g/dL (32.0-36.0); Mean Corpuscular Volume 92.1 fL (80.0-100.0); Monocytes # (auto) 0.56 K/uL (0.11-0.59); Monocytes % (auto) 8.6 %; Neutrophils # (auto) 4.94 K/uL (1.40-6.50); Neutrophils % (auto) 75.5 %; Platelet Count 126 K/uL (130-400); RDW Coefficient of Variation 12.9 % (11.5-14.5); RDW Standard Deviation 43.3 fL (36.4-46.3); White Blood Count 6.54 K/ul (4.8-10.8)
[2023-05-09] MEDS ORDERED: MIDAZOLAM HCL 1 MG/ML 2ML VIAL ONE (07:15)
[2023-05-09] MEDS ORDERED: fentaNYL citrate PF 100 MCG/2 ML VIAL ONE (07:15)
[2023-05-09] MEDS ORDERED: PROPOFOL IV EMULSION 10 MG/ML 20 ML VIAL IV ONE (07:16)
[2023-05-09] MEDS ORDERED: ONDANSETRON INJ 2 MG/ML 2 ML VIAL ONE ×2 (07:16→08:52)
[2023-05-09] MEDS ORDERED: LIDOCAINE 2% 2 ML VIAL/AMP(20MG/ML) INFIL ONE (07:16)
[2023-05-09 07:23] LABS: BUN Creatinine Ratio 28.8 (10-20); Calcium 8.8 mg/dl (8.6-10.3); Creatinine Clr Calc Pharmacy 72.2 ml/min; Est GFR (African American) 98.2 ml/min; Est GFR (Non-African American) 84.7 ml/min; Potassium 3.9 mmol/L (3.5-5.1)
[2023-05-09] MEDS ORDERED: ONDANSETRON INJ 2 MG/ML 2 ML VIAL IV PRN (08:07)
[2023-05-09] MEDS ORDERED: fentaNYL citrate PF 100 MCG/2 ML VIAL IV PRN (08:07)
[2023-05-09] MEDS ORDERED: ePHEDrine sulfate 50 MG/ML AMP IV PRN (08:07)
[2023-05-09] MEDS ORDERED: ATROPINE SULFATE 0.1 MG/ML 10ML SYR IV PRN (08:07)
[2023-05-09] MEDS ORDERED: PROMETHAZINE HCL 12.5 MG in SODIUM CHLORIDE 0.9% 50 ML IV PRN (08:07)
[2023-05-09] MEDS ORDERED: HYDROmorphone INJ 2 MG/ML SYR/VIAL IV PRN (08:07)
--- NOTE | 2023-05-09 08:07 | Orthopedic Consultation ---
Date of Consultation May 09, 2023 Assessment & Plan (1) Closed fracture of right hip: 87-year-old female with impacted right femoral neck fracture Nonweightbearing right lower extremity Bedrest Pain control Hold DVT prophylaxis for or Medical management Plan for right femoral neck open reduction internal fixation History of Present Illness Reason for Consultation: Impacted right femoral neck fracture Attending Physician: Star Kim MD History of Present Illness 87-year-old female presenting after sustaining a ground-level fall onto her right side. In the emergency department radiographs were obtained demonstrating an impacted right femoral neck fracture. Patient was admitted to medical service and orthopedics was consulted for operative management. Allergies Allergy/AdvReac Type Severity Reaction Status Date / Time donepezil [From Aricept] Allergy Unknown Unknown Verified 05/08/23 02:43 codeine AdvReac Intermediate SEVERE Verified 05/08/23 02:43 NAUSEA clarithromycin AdvReac Unknown PT DOES Verified 05/08/23 02:43 NOT TOLERATE WELL Home Medications Medication Instructions Recorded Confirmed Type acetaminophen 500 mg tablet 500 mg PO TID 05/08/23 05/08/23 History (Tylenol Extra Strength) acetaminophen 650 mg rectal 650 mg [place] Q4H PRN Fever Or Pain 05/08/23 05/08/23 History suppository amlodipine 2.5 mg tablet 2.5 mg PO DAILY 05/08/23 05/08/23 History amlodipine 5 mg tablet 5 mg PO DAILY 05/08/23 05/08/23 History amoxicillin 500 mg capsule 2,000 mg PO DIRECTED 05/08/23 05/08/23 History aspirin 81 mg tablet,delayed 81 mg PO DAILY 05/08/23 05/08/23 History release atorvastatin 20 mg tablet 20 mg PO QPM 05/08/23 05/08/23 History betaxolol 0.25 % eye 1 drp OPB BID 05/08/23 05/08/23 History drops,suspension (Betoptic S) bisacodyl 10 mg rectal suppository 10 mg [place] .Q48HR PRN Constipation 05/08/23 05/08/23 History (Dulcolax (bisacodyl)) calcium carbonate 500 mg calcium 500 mg PO DIRECTED PRN .HEART 05/08/23 05/08/23 History (1,250 mg) chewable tablet BURN cephalexin 500 mg capsule 2,000 mg PO DIRECTED PRN 05/08/23 05/08/23 History .prophylaxis cholecalciferol (vitamin D3) 50 50 mcg PO DAILY 05/08/23 05/08/23 History mcg (2,000 unit) tablet (Vitamin D3) cyanocobalamin (vitamin B-12) 1,000 mcg PO DAILY 05/08/23 05/08/23 History 1,000 mcg tablet (Vitamin B-12) diclofenac sodium 1 % topical gel 4 g topical DAILY PRN .shoulder 05/08/23 05/08/23 History pain docusate sodium 100 mg capsule 100 mg PO DAILY 05/08/23 05/08/23 History (Colace) famotidine 20 mg tablet 20 mg PO HS 05/08/23 05/08/23 History magnesium sulfate (laxative) 495 1 applic topical DIRECTED PRN 05/08/23 05/08/23 History mg/5 gram oral granules (Epsom .ingrown toenail Salt (laxative)) melatonin 1 mg tablet 1 mg PO HS PRN Insomnia 05/08/23 05/08/23 History metoprolol tartrate 25 mg tablet 25 mg PO BID 05/08/23 05/08/23 History metronidazole 500 mg tablet 500 mg PO DIRECTED 05/08/23 05/08/23 History schgpppx-rsd-frzcs acid 0.4 1 tab PO DAILY 05/08/23 05/08/23 History mg-lycopene 300 mcg-lutein 250 mcg tablet (Centrum Silver) nitroglycerin 0.4 mg sublingual 0.4 mg sublingual DIRECTED PRN 05/08/23 05/08/23 History tablet (Nitrostat) .chest pain pantoprazole 40 mg tablet,delayed 40 mg PO DAILY 05/08/23 05/08/23 History release polyethylene glycol 3350 17 gram 17 g PO DAILY 05/08/23 05/08/23 History oral powder packet (Miralax) triamcinolone acetonide 0.1 % 1 applic mucous membrane QID PRN 05/08/23 05/08/23 History dental paste .lower lip discomfort Patient History Medical History (Updated 05/09/23 @ 08:06 by Melvin Martinez DO) Closed fracture of right hip Encounter for pre-operative examination GERD (gastroesophageal reflux disease) Hyperlipidemia Hypertension Osteoarthritis Surgical History History of knee replacement RIGHT History of tonsillectomy Family History Mother Stroke Hypertension Father Heart disease Other No family history of adverse response to anesthesia No family history of bleeding disorder Denies family history of Cancer Asthma Social History Smoking Status: Unknown if ever smoked Tobacco Type: Cigarettes Cigarettes Per Day: UNKNOWN AMOUNT; Second Hand Exposure: No; Do You Dip or Chew Tobacco: No; Hx Alcohol Use: No Hx Substance Use: No Preferred Language: Romansh Communication Ability: Effective Multimedia Journalist Required: No Beliefs That Will Affect Care: None marital status: / Current Living Situation: Other Current Living Situation Comment: [facility] current occupational status: retired Other Information That Helps Us Care for You: No Feels Safe at Home: Yes Safety Concerns: Feels Safe At This Time Assistive Devices: Walker Physical Exam Constitutional: No acute distress, resting comfortably in bed Musculoskeletal: Right lower extremity Positive logroll, unable to straight leg raise Sensation intact to light touch saphenous/superficial peroneal nerve/deep peroneal nerve/tibial/sural nerve distributions Fires TA/EHL/GSC Palpable dorsalis pedis and posterior tibial pulse Results & Data Vital Signs (Past 12 Hours) Vital Signs Temp Pulse Resp BP Pulse Ox O2 Del Method O2 Flow Rate 05/09/23 07:04 37.4 C 77 16 152/88 H 94 Nasal Cannula 2 05/09/23 05:32 37.1 C 77 18 160/71 H 91 Nasal Cannula, High Flow Nasal Cannula 3 (1) Closed fracture of right hip Encounter type: initial encounter Qualified Code(s): S72.001A - Fracture of unspecified part of neck of right femur, initial encounter for closed fracture
--- NOTE | 2023-05-09 08:08 | History & Physical Bridge Note ---
Date of Service May 09, 2023 History & Physical Bridge Note I have examined the patient, reviewed the History & Physical and in the interval since the performance of the History & Physical I have noted the following changes of clinical significance: no changes noted.Met with the patient and her son. We do lengthy discussion regarding risk benefits potential complications of right femoral neck open reduction internal fixation for her impacted femoral neck fracture. These risks include but are not limited to: Infection, neurovascular injury, DVT, nonunion, osteoporosis, and need for future surgery. After reviewing these they elected proceed with surgical intervention and written consent was obtained from the son who is POA.
[2023-05-09] MEDS ORDERED: PHENYLEPHRINE HCL 10 MG/ML VIAL ONE (08:30)
[2023-05-09] MEDS ORDERED: ROCURONIUM BROMIDE 10 MG/ML 5 ML VIAL IV ONE (08:52)
[2023-05-09] MEDS ORDERED: SUGAMMADEX SODIUM 200 MG/2 ML VIAL IV ONE (09:06)
--- NOTE | 2023-05-09 09:21 | Post Operative Brief Note ---
Immediate Post Op Note v1 Date of Surgery May 09, 2023 Pre & Post Diagnosis Operation Date: 05/09/23 07:30 Pre-Op Diagnosis: closed right hip fracture Post-Op Diagnosis: closed right hip fracture I identified the patient and participated in the time-out.: Yes Procedure Operation Date: 05/09/23 07:30 Actual Procedures p Right Femoral Neck Open Reduction Internal Fixation(Right) - Melvin Martinez DO Surgeon Melvin Martinez DO Novelty Twister Operator none Estimated Blood Loss 25 Findings Consistent with Post-Op Diagnosis see dictation Complications none
--- NOTE | 2023-05-09 09:27 | Operative Report ---
Post Operative Report Pre & Post Diagnosis Operation Date: 05/09/23 07:30 Pre-Op Diagnosis: closed right hip fracture Post-Op Diagnosis: closed right hip fracture I identified the patient and participated in the time-out.: Yes Procedure Operation Date: 05/09/23 07:30 Actual Procedures p Right Femoral Neck Open Reduction Internal Fixation(Right) - Melvin Martinez DO Surgeon Melvin Martinez DO Surface Mount Technology Operator none Estimated Blood Loss 25 Findings Consistent with Post-Op Diagnosis see dictation Specimens none Complications none Indications 87-year-old female presenting after sustaining a ground-level fall onto her right side. Radiographs were obtained demonstrating impacted right femoral neck fracture. Orthopedics was consulted for operative management. I met with the patient and her son preoperatively. We do lengthy discussion regarding risk benefits and potential complications of right femoral neck open reduction internal fixation. After reviewing these she elected to proceed with surgical intervention and written consent was obtained. Description of Procedure Implants: Synthes femoral neck system 1 hole plate with 80 mm bolt, 5 mm x 42 mm StarDrive locking screw, 80 mm antirotation screw Procedure: Patient was appropriate marked and identified in the preoperative holding area. She was then taken back to the operative suite where she received general anesthesia as well as antibiotics per protocol. She was positioned supine on the manual fracture table. Using the assistance of C arm fluoroscopy she was positioned in a satisfactory position. She was noted to have an impacted right femoral neck fracture in stable position. She was then prepped and draped in the standard orthopedic fashion a timeout was then performed. A 4 cm incision over the lateral aspect of the proximal femur was then made through the skin subcutaneous tissue and deep fascia. A 130 degree guide and threaded guidewire was then inserted through the lateral cortex and advanced into the femoral head and a center center position just beneath the subchondral bone. Position was confirmed on AP and lateral fluoroscopy. Length was then measured and 80 mm implant was then selected. Reamer was then used to ream over the guidewire. An 80 mm bolt with 1 hole plate was then inserted. Guidewire was then removed guide for plate locking screw was then placed. Drill was used to drill bicortically and a 42 mm screw was then inserted. 80 mm drill was then used to drill for the antirotation screw. An 80 mm antirotation screw was then inserted. Insertion guide was then removed for the plate. Final radiographs were obtained demonstrating satisfactory position of the implant and fracture. Wounds were then copiously irrigated using normal saline solution. Deep fascia was closed using 0 Vicryl. 2-0 Vicryl was used to close subcutaneous tissue followed by oumar for the skin. Sterile Silverlon dressing was placed. The patient tolerated the procedure well was taken the recovery room in hemodynamically stable condition. I attest to the content of the Intraoperative Record and any orders documented therein. Any exceptions are noted below.
--- NOTE | 2023-05-09 09:50 | Fluoroscopy Report ---
FL hip RT 2-3V CLINICAL HISTORY: RIGHT HIP CANNULATED SCREWS TECHNIQUE: 2 views were obtained with the C-arm in the OR with the above procedure. Total fluoroscopy time was 54.3 seconds. Radiation dose was 12.68 mGy. Comparison: Comparison is made to right hip radiograph 05/07/2023 FINDINGS/IMPRESSION: Intraoperative images were obtained of right transcervical femoral neck fracture fixation. Please correlate with intraoperative fluoroscopy and operative report. ACT 112: Negative or not required by law. Electronically signed by: Jose M Rodrigues M.D. 05/09/2023 9:49 AM
[2023-05-09] MEDS: BETAXOLOL HCL 0.25% OPB SCH ×2 (10:56→20:22)
[2023-05-09] MEDS: NSS + 20MEQ KCL 20 MEQ/1,000 ML BAG IV SCH (10:57)
[2023-05-09] MEDS: SODIUM CHLORIDE 0.9% 1,000 ML IV SCH ×2 (10:57→22:24)
[2023-05-09] MEDS: PANTOprazole 40 MG in SYRINGE 0 ML IV SCH (10:57)
--- NOTE | 2023-05-09 11:40 | Anesthesiology Progress Note ---
Date of Service May 09, 2023 Anesthesia Post Procedure Vital Signs Vital Signs: Temp Pulse Pulse Resp BP Pulse Ox O2 Del Method 05/09/23 11:23 36.3 C L 69 15 138/72 91 Oxymask 05/09/23 11:10 36.4 C L 73 16 136/72 92 Oxymask 05/09/23 11:04 73 16 146/74 H 91 Oxymask 05/09/23 10:48 Oxymask 05/09/23 10:45 36.9 C 16 142/57 H 89 L Oxymask 05/09/23 10:20 77 16 156/64 H 94 Oxymask 05/09/23 10:10 76 19 160/75 H 93 Oxymask 05/09/23 09:50 36.7 C 77 16 164/75 H 91 Oxymask 05/09/23 09:40 80 21 160/86 H 90 Oxymask 05/09/23 09:30 84 22 158/84 H 88 L Oxymask 05/09/23 10:00 79 14 158/68 H 91 Nasal Cannula 05/09/23 09:21 36.7 C 87 12 165/78 H 90 Oxymask 05/09/23 07:04 37.4 C 77 16 152/88 H 94 Nasal Cannula 05/09/23 05:32 37.1 C 77 18 160/71 H 91 Nasal Cannula, High Flow Nasal Cannula 05/08/23 20:00 Nasal Cannula 05/08/23 19:50 94 Nasal Cannula 05/08/23 19:46 37.2 C 81 18 163/73 H 87 L Room Air 05/08/23 14:48 36.7 C 72 16 165/76 H 93 Nasal Cannula O2 Flow Rate 05/09/23 11:23 6 05/09/23 11:10 6 05/09/23 11:04 6 05/09/23 10:48 05/09/23 10:45 4 05/09/23 10:20 4 05/09/23 10:10 4 05/09/23 09:50 6 05/09/23 09:40 10 05/09/23 09:30 12 05/09/23 10:00 4 05/09/23 09:21 10 05/09/23 07:04 2 05/09/23 05:32 3 05/08/23 20:00 2 05/08/23 19:50 2 05/08/23 19:46 05/08/23 14:48 3 Pain Intensity Right Hip: Pain Intensity: 8 Transfer of Care Handoff Completed per policy Notes Mental Status: alert / awake / arousable and participated in evaluation Patient Amnestic to Procedure: Yes Nausea / Vomiting: adequately controlled Pain: adequately controlled Airway Patency, RR, SpO2: stable & adequate BP & HR: stable & adequate Hydration State: stable & adequate Anesthetic Complications: no major complications apparent
[2023-05-09] MEDS: METOPROLOL TARTRATE 25 MG TAB PO SCH ×2 (11:48→20:22)
[2023-05-09] MEDS ORDERED: ceFAZolin 330 MG/ML 1 GM VIAL ONE (12:41)
--- NOTE | 2023-05-09 13:56 | Hospitalist Progress Note ---
Date of Service May 09, 2023 Assessment & Plan (1) Closed fracture of right hip: Plan: Orthopedic consultation appreciated. Open reduction internal fixation right hip fracture completed today, May 09. Supportive care. Daily lab (2) GERD (gastroesophageal reflux disease): Plan: Stable. Continue PPI therapy (3) Hypertension: Plan: Stable. Continue metoprolol. Amlodipine on hold Plan Will need SNF for rehab placement postoperatively. Admission and Anticipated Discharge Date Admission Date: May 08, 2023 Subjective Somewhat lethargic postoperatively. She underwent open reduction internal fixation of the right hip fracture earlier today, May 09. Hemodynamically stable at this time. Review of Systems Review of Systems: Constitutional-no fever or chills ENT-no blurred vision, no double vision, no epistaxis, no sore throat Respiratory-no cough, no wheezing, no shortness of breath Cardiac-no palpitations, no chest pain, no syncope GI-no nausea, vomiting, diarrhea, melena, hematochezia -no urinary retention, no urinary incontinence, no dysuria, no hematuria Musculoskeletal-right hip discomfort from hip surgery today and underlying fracture Skin-no bruising, no rashes, no pruritus Neuro-no isolated weakness, no paresthesia Psych-no depression, no anxiety Physical Exam Physical Exam: General-somewhat lethargic postoperatively. No fevers, no chills HEENT-head atraumatic and normocephalic, pupils equal and reactive to light, ext raocular muscles intact Neck-no lymphadenopathy or thyromegaly, trachea midline Chest-clear to auscultation percussion. No rales wheezing or rhonchi Cardiac-regular rate and rhythm, normal S1 and S2 Abdomen-normal bowel sounds, nontender, no hepatosplenomegaly Extremities-right hip discomfort postoperatively. Surgical site intact Neuro-cranial nerves II through XII intact, motor and sensory function within normal limits, strength symmetrical , no focal deficits Psych-lethargic postoperatively Results & Data Results & Data Vital Signs (Past 12 Hours) Vital Signs Temp Pulse Pulse Resp BP Pulse Ox O2 Del Method 05/09/23 13:51 36.8 C 77 16 154/67 H 92 Nasal Cannula 05/09/23 12:41 36.4 C L 75 16 135/72 96 Nasal Cannula 05/09/23 11:42 68 16 139/71 93 Oxymask 05/09/23 11:23 36.3 C L 69 15 138/72 91 Oxymask 05/09/23 11:10 36.4 C L 73 16 136/72 92 Oxymask 05/09/23 11:04 73 16 146/74 H 91 Oxymask 05/09/23 10:48 Oxymask 05/09/23 10:45 36.9 C 16 142/57 H 89 L Oxymask 05/09/23 10:20 77 16 156/64 H 94 Oxymask 05/09/23 10:10 76 19 160/75 H 93 Oxymask 05/09/23 09:50 36.7 C 77 16 164/75 H 91 Oxymask 05/09/23 09:40 80 21 160/86 H 90 Oxymask 05/09/23 09:30 84 22 158/84 H 88 L Oxymask 05/09/23 10:00 79 14 158/68 H 91 Nasal Cannula 05/09/23 09:21 36.7 C 87 12 165/78 H 90 Oxymask 05/09/23 07:04 37.4 C 77 16 152/88 H 94 Nasal Cannula 05/09/23 05:32 37.1 C 77 18 160/71 H 91 Nasal Cannula, High Flow Nasal Cannula O2 Flow Rate 05/09/23 13:51 6 05/09/23 12:41 6 05/09/23 11:42 6 05/09/23 11:23 6 05/09/23 11:10 6 05/09/23 11:04 6 05/09/23 10:48 05/09/23 10:45 4 05/09/23 10:20 4 05/09/23 10:10 4 05/09/23 09:50 6 05/09/23 09:40 10 05/09/23 09:30 12 05/09/23 10:00 4 05/09/23 09:21 10 05/09/23 07:04 2 05/09/23 05:32 3 Laboratory Results 05/09/23 06:07 05/09/23 06:07 PG Care Time/CCT Total # of Minutes Spent Total Time Spent with Patient: Total time spent is greater than 50% in coordination of care (as documented) at patient's floor/unit and/or counseling patient: Coding Level of Care Code 73641 SUB INP/OBS CARE 3/50MIN Diagnoses Closed fracture of right hip S72.001A Encounter type: initial encounter GERD (gastroesophageal reflux disease) K21.9 Hypertension I10 (1) Closed fracture of right hip Encounter type: initial encounter Qualified Code(s): S72.001A - Fracture of unspecified part of neck of right femur, initial encounter for closed fracture
[2023-05-09] MEDS: ACETAMINOPHEN 1,000 MG/100 ML VIAL IV PRN (13:58)
[2023-05-09] MEDS: ceFAZolin 2000MG 2,000 MG/15 ML SYR IV SCH ×2 (17:37→22:24)
[2023-05-09] MEDS ORDERED: ALUMINUM/MAGNESIUM SUSP 30 ML UDC PO STA (19:20)
[2023-05-09] MEDS: ASPIRIN 81 MG ECTAB PO SCH (20:23)
[2023-05-10] MEDS ORDERED: FUROSEMIDE 40 MG/4 ML VIAL IV ONE (00:35)
--- NOTE | 2023-05-10 00:47 | Communication Note ---
Date of Service: May 10, 2023 Received notification patient increasingly hypoxic after surgery today 91% on 8L oxygen mask. Ordered CXR noted increased pulm edema. Ordered lasix 40mg IV.
[2023-05-10 06:27] LABS: Basophils # (auto) 0.03 K/uL (0.00-0.20); Basophils % (auto) 0.4 %; Hematocrit (blood only) 36.7 % (37.0-47.0); Hemoglobin 12.6 g/dl (12.0-16.0); Immature Granulocytes # (auto) 0.03 K/uL (0.01-0.20); Immature Granulocytes % (auto) 0.4 %; Lymphocytes # (auto) 0.91 K/uL (1.20-3.40); Mean Corpuscular Hgb Conc 34.3 g/dL (32.0-36.0); Mean Corpuscular Volume 90.4 fL (80.0-100.0); Mean Platelet Volume 12.3 fL (9.4-12.4); Monocytes # (auto) 0.82 K/uL (0.11-0.59); Monocytes % (auto) 10.8 %; Neutrophils # (auto) 5.49 K/uL (1.40-6.50); Neutrophils % (auto) 72.4 %; Platelet Count 115 K/uL (130-400); RDW Coefficient of Variation 12.9 % (11.5-14.5); RDW Standard Deviation 42.6 fL (36.4-46.3); Red Blood Count 4.06 M/uL (4.20-5.40); White Blood Count 7.58 K/ul (4.8-10.8)
[2023-05-10 06:57] LABS: BUN Creatinine Ratio 22.4 (10-20); Calcium 8.4 mg/dl (8.6-10.3); Creatinine Clr Calc Pharmacy 64.7 ml/min; Est GFR (African American) 94.7 ml/min; Est GFR (Non-African American) 81.7 ml/min; Potassium 3.5 mmol/L (3.5-5.1)
[2023-05-10] MEDS: ASPIRIN 81 MG ECTAB PO SCH ×2 (08:29→21:18)
[2023-05-10] MEDS: METOPROLOL TARTRATE 25 MG TAB PO SCH ×2 (08:29→21:20)
[2023-05-10] MEDS: BETAXOLOL HCL 0.25% OPB SCH ×2 (08:30→21:17)
--- NOTE | 2023-05-10 08:37 | Orthopedic Progress Note ---
Date of Service May 10, 2023 Assessment & Plan (1) Closed fracture of right hip: Plan: -S/p right femoral neck ORIF with Dr. Martinez on 05/09/23 -TTWB RLE -Pain control and medical management per primary -ASA for DVT ppx when appropriate -PT/OT Patient is stable from an orthopedic standpoint. Follow-up with Dr. Martinez in orthopedic surgery clinic in 10-14 days. Please call [facility] at [phone] to make an appointment. Admission and Anticipated Discharge Date Admission Date: May 08, 2023 Subjective POD#1 right femoral neck ORIF. Patient was reportedly hypoxic overnight due to pulmonary edema, requiring 8L via oxygen mask, given IV lasix. This morning, she is sitting up, attempting to eat breakfast. She states that she feels a bit nauseous but no vomiting. Regarding her hip, pain is currently controlled while resting in bed. Physical Exam Physical Exam: Sitting up in bed attempting to eat breakfast, pleasant Musculoskeletal: RLE: Dressing c/d/i right hip. Compartments soft and compressible. Toes mobile, dorsi/plantarflexion intact. Sensation and d/p pulse intact Skin: Warm and dry Neurologic: Awake, alert and oriented, interacting and answering questions appropriately Results & Data Vital Signs (Past 12 Hours) Vital Signs Temp Pulse Resp BP Pulse Ox Pulse Ox O2 Del Method 05/10/23 07:00 37.2 C 80 16 156/73 H 94 Oxymask 05/10/23 06:00 93 05/10/23 04:09 37.2 C 81 18 154/68 H 93 Oxymask 05/10/23 02:00 92 05/09/23 23:42 90 05/09/23 23:38 91 Oxymask 05/09/23 23:30 37.5 C 81 18 150/67 H 88 L Nasal Cannula O2 Del Method O2 Flow Rate O2 Flow Rate 05/10/23 07:00 8 05/10/23 06:00 Oxymask 8 05/10/23 04:09 8 05/10/23 02:00 Oxymask 8 05/09/23 23:42 Oxymask 8 05/09/23 23:38 8 05/09/23 23:30 6 (1) Closed fracture of right hip Encounter type: initial encounter Qualified Code(s): S72.001A - Fracture of unspecified part of neck of right femur, initial encounter for closed fracture
--- NOTE | 2023-05-10 09:39 | XRay Report ---
XR chest 1V portable CLINICAL HISTORY: sob TECHNIQUE: Single frontal radiograph of the chest was obtained. Comparison: Comparison is made to chest radiograph 07/15/2023 FINDINGS: No lines and tubes are seen. Cardiomegaly is noted. Reticular interstitial opacities are seen. Airspa ce opacities are seen in the left greater than right lungs. There is a small left pleural effusion wh ich is new from prior exam. IMPRESSION: Multifocal airspace opacities may represent atelectasis, pneumonia, and/or aspiration. Stable cardiom egaly. ACT 112: Negative or not required by law. Electronically signed by: Jose M Rodrigues M.D. 05/10/2023 9:37 AM
[2023-05-10] MEDS ORDERED: PIPER/TAZO 4.5g in D5W MINI-B 100 ML IV ONE (10:00)
[2023-05-10] MEDS: amLODIPine BESYLATE 5 MG TAB PO SCH (11:02)
[2023-05-10] MEDS: FUROSEMIDE 40 MG/4 ML VIAL IV SCH ×2 (12:06→21:17)
[2023-05-10] MEDS: methylPREDNISolone 60 MG in SYRINGE 0 ML IV SCH ×3 (12:06→21:17)
[2023-05-10] MEDS: MoRPHine SULFATE 4 MG/ML 1 ML CARP\\VIAL IV PRN (12:28)
--- NOTE | 2023-05-10 12:41 | Hospitalist Progress Note ---
Date of Service May 10, 2023 Assessment & Plan (1) Closed fracture of right hip: Plan: Orthopedic consultation appreciated. Open reduction internal fixation right hip fracture completed on May 09, postoperative day #1. Supportive care. Daily lab (2) Acute respiratory failure with hypoxia: Plan: Uncertain if this is due to congestive heart failure or aspiration of gastric contents. Atelectasis could be playing a role. Nevertheless we will keep lungs dry with parenteral Lasix. Cardiac echo is pending. IV fluids have been discontinued. Will wean off as tolerated. The patient was given proper instruction on use of incentive spirometry (3) GERD (gastroesophageal reflux disease): Plan: Stable. Continue PPI therapy (4) Hypertension: Plan: Stable. Continue metoprolol. Amlodipine on hold Plan Will need SNF for rehab placement postoperatively. Admission and Anticipated Discharge Date Admission Date: May 08, 2023 Subjective Alert. She has underlying severe dementia however. No apparent distress. She is requiring 8 L of oxygen which suggests the presence of aspiration and/or atelectasis rather than CHF. Nevertheless, IV fluids have been discontinued and she will be kept dry with parenteral Lasix. Cardiac echo report is pending. She was instructed on proper use of incentive spirometry Review of Systems Review of Systems: Constitutional-no fever or chills ENT-no blurred vision, no double vision, no epistaxis, no sore throat Respiratory-no cough, no wheezing, denies shortness of breath Cardiac-no palpitations, no chest pain, no syncope GI-no nausea, vomiting, diarrhea, melena, hematochezia -no urinary retention, no urinary incontinence, no dysuria, no hematuria Musculoskeletal-right hip discomfort from hip surgery today and underlying fracture Skin-no bruising, no rashes, no pruritus Neuro-no isolated weakness, no paresthesia Psych-no depression, no anxiety Physical Exam Physical Exam: General-somewhat lethargic postoperatively. No fevers, no chills HEENT-head atraumatic and normocephalic, pupils equal and reactive to light, extraocular muscles intact Neck-no lymphadenopathy or thyromegaly, trachea midline Chest-lungs are examined from the anterior approach. She is unable to set up. No overt rhonchi or wheezing. Cardiac-regular rate and rhythm, normal S1 and S2 Abdomen-normal bowel sounds, nontender, no hepatosplenomegaly Extremities-right hip discomfort postoperatively. Surgical site intact Neuro-cranial nerves II through XII intact, motor and sensory function within normal limits, strength symmetrical , no focal deficits Psych-alert and oriented x1. Baseline severe dementia Results & Data Results & Data Vital Signs (Past 12 Hours) Vital Signs Temp Pulse Resp BP Pulse Ox Pulse Ox Pulse Ox 05/10/23 08:00 05/10/23 10:06 94 05/10/23 07:00 37.2 C 80 16 156/73 H 94 05/10/23 06:00 93 05/10/23 04:09 37.2 C 81 18 154/68 H 93 05/10/23 02:00 92 O2 Del Method O2 Del Method O2 Flow Rate O2 Flow Rate O2 Flow Rate 05/10/23 08:00 Oxymask 8 05/10/23 10:06 8 05/10/23 07:00 Oxymask 8 05/10/23 06:00 Oxymask 8 05/10/23 04:09 Oxymask 8 05/10/23 02:00 Oxymask 8 Laboratory Results 05/10/23 05:44 05/10/23 05:44 PG Care Time/CCT Total # of Minutes Spent Total Time Spent with Patient: Total time spent is greater than 50% in coordination of care (as documented) at patient's floor/unit and/or counseling patient: Coding Level of Care Code 38507 SUB INP/OBS CARE 3/50MIN Diagnoses Closed fracture of right hip S72.001A Encounter type: initial encounter Acute respiratory failure with hypoxia J96.01 GERD (gastroesophageal reflux disease) K21.9 Hypertension I10 (1) Closed fracture of right hip Encounter type: initial encounter Qualified Code(s): S72.001A - Fracture of unspecified part of neck of right femur, initial encounter for closed fracture
[2023-05-10] MEDS: PIPERACILLIN/TAZOBACTAM 4.5 GM in DEXTROSE 5% MINI-B 100 ML IV SCH (17:17)
--- NOTE | 2023-05-10 17:45 | XCELERA ---
[id number]
[2023-05-10] MEDS: ACETAMINOPHEN 1,000 MG/100 ML VIAL IV PRN (21:45)
[2023-05-11] MEDS: PIPERACILLIN/TAZOBACTAM 4.5 GM in DEXTROSE 5% MINI-B 100 ML IV SCH ×4 (00:40→23:39)
[2023-05-11] MEDS: methylPREDNISolone 60 MG in SYRINGE 0 ML IV SCH ×2 (04:48→10:08)
[2023-05-11] MEDS: MoRPHine SULFATE 4 MG/ML 1 ML CARP\\VIAL IV PRN ×2 (06:31→21:03)
[2023-05-11 08:09] LABS: Basophils # (auto) 0.02 K/uL (0.00-0.20); Basophils % (auto) 0.2 %; Hematocrit (blood only) 38.1 % (37.0-47.0); Hemoglobin 13.1 g/dl (12.0-16.0); Immature Granulocytes # (auto) 0.04 K/uL (0.01-0.20); Immature Granulocytes % (auto) 0.5 %; Lymphocytes # (auto) 0.75 K/uL (1.20-3.40); Lymphocytes % (auto) 8.9 %; Mean Corpuscular Hgb Conc 34.4 g/dL (32.0-36.0); Mean Corpuscular Volume 90.3 fL (80.0-100.0); Mean Platelet Volume 12.1 fL (9.4-12.4); Monocytes # (auto) 0.36 K/uL (0.11-0.59); Monocytes % (auto) 4.3 %; Neutrophils # (auto) 7.29 K/uL (1.40-6.50); Neutrophils % (auto) 86.1 %; Platelet Count 142 K/uL (130-400); RDW Coefficient of Variation 12.4 % (11.5-14.5); RDW Standard Deviation 40.9 fL (36.4-46.3); Red Blood Count 4.22 M/uL (4.20-5.40); White Blood Count 8.46 K/ul (4.8-10.8)
[2023-05-11] MEDS: amLODIPine BESYLATE 5 MG TAB PO SCH (08:10)
[2023-05-11] MEDS: ASPIRIN 81 MG ECTAB PO SCH ×2 (08:10→21:02)
[2023-05-11] MEDS: METOPROLOL TARTRATE 25 MG TAB PO SCH ×2 (08:11→21:02)
[2023-05-11] MEDS: FUROSEMIDE 40 MG/4 ML VIAL IV SCH ×2 (08:13→21:02)
[2023-05-11] MEDS: BETAXOLOL HCL 0.25% OPB SCH ×2 (08:13→21:02)
[2023-05-11 08:38] LABS: BUN Creatinine Ratio 35.6 (10-20); Calcium 9.1 mg/dl (8.6-10.3); Creatinine Clr Calc Pharmacy 51.4 ml/min; Est GFR (African American) 84.6 ml/min; Potassium 3.4 mmol/L (3.5-5.1)
--- NOTE | 2023-05-11 09:22 | XRay Report ---
XR chest 1V portable CLINICAL HISTORY: acute hypoxic respiratory failure TECHNIQUE: Single frontal radiograph of the chest was obtained. Comparison: Comparison is made to chest radiograph 04/30/2023 FINDINGS: No lines and tubes are seen. Calcified aortic knob is seen. Reticular interstitial opacities are seen . Small left pleural effusion is seen. IMPRESSION: Small left pleural effusion. ACT 112: Negative or not required by law. Electronically signed by: Jose M Rodrigues M.D. 05/11/2023 9:19 AM
[2023-05-11] MEDS ORDERED: POTASSIUM CHLORIDE CRTAB 20 MEQ TABCR PO STA (10:10)
[2023-05-11] MEDS ORDERED: ACETAMINOPHEN 325 MG TAB PO PRN (12:53)
[2023-05-11] MEDS: methylPREDNISolone 40 MG in SYRINGE 0 ML IV SCH ×2 (14:47→21:03)
--- NOTE | 2023-05-11 15:05 | Hospitalist Progress Note ---
Date of Service May 11, 2023 Assessment & Plan (1) Closed fracture of right hip: Plan: Orthopedic consultation appreciated. Open reduction internal fixation right hip fracture completed on May 09, postoperative day #2. Supportive care. Daily lab (2) Acute respiratory failure with hypoxia: Plan: due to combined congestive heart failure and aspiration of gastric contents. Atelectasis could also be playing a role. Will keep lungs dry with parenteral Lasix. Cardiac echo report noted. Normal ejection fraction. IV fluids have been discontinued. Will wean oxygen oxygen off as tolerated. The patient was given proper instruction on use of incentive spirometry (3) GERD (gastroesophageal reflux disease): Plan: Stable. Continue PPI therapy (4) Hypertension: Plan: Stable. Continue metoprolol. Amlodipine on hold Plan Hopeful discharge to [facility] tomorrow, May 12 Admission and Anticipated Discharge Date Admission Date: May 08, 2023 Subjective Alert. Improved overall. Oxygen requirements are down to 2 L/min and eventually will be weaned off. Parenteral steroids have been tapered down. She remains on intravenous Zosyn. Chest x-ray obtained today, May 11, looks better. Cardiac echo reveals normal ejection fraction with moderate LVH and left atrial enlargement. She has mild mitral stenosis and moderate MR. Hopeful discharge to [facility] tomorrow, May 12 Review of Systems Review of Systems: Constitutional-no fever or chills ENT-no blurred vision, no double vision, no epistaxis, no sore throat Respiratory-no cough, no wheezing, denies shortness of breath Cardiac-no palpitations, no chest pain, no syncope GI-no nausea, vomiting, diarrhea, melena, hematochezia -no urinary retention, no urinary incontinence, no dysuria, no hematuria Musculoskeletal-right hip discomfort from hip surgery today and underlying fracture Skin-no bruising, no rashes, no pruritus Neuro-no isolated weakness, no paresthesia Psych-no depression, no anxiety Physical Exam Physical Exam: General-somewhat lethargic postoperatively. No fevers, no chills HEENT-head atraumatic and normocephalic, pupils equal and reactive to light, extraocular muscles intact Neck-no lymphadenopathy or thyromegaly, trachea midline Chest-lungs are examined from the anterior approach. She is unable to set up. No overt rhonchi or wheezing. Cardiac-regular rate and rhythm, normal S1 and S2 Abdomen-normal bowel sounds, nontender, no hepatosplenomegaly Extremities-right hip discomfort postoperatively. Surgical site intact Neuro-cranial nerves II through XII intact, motor and sensory function within normal limits, strength symmetrical , no focal deficits Psych-alert and oriented x1. Baseline severe dementia Results & Data Results & Data Vital Signs (Past 12 Hours) Vital Signs Temp Pulse Resp BP Pulse Ox Pulse Ox O2 Del Method 05/11/23 14:10 36.5 C 72 16 146/74 H 94 Nasal Cannula 05/11/23 13:00 93 05/11/23 09:47 Nasal Cannula 05/11/23 07:10 36.9 C 68 18 147/73 H 94 Nasal Cannula 05/11/23 05:00 92 O2 Del Method O2 Flow Rate O2 Flow Rate 05/11/23 14:10 2 05/11/23 13:00 Nasal Cannula 2 05/11/23 09:47 2 05/11/23 07:10 2 05/11/23 05:00 Nasal Cannula 2 Laboratory Results 05/11/23 07:17 05/11/23 07:17 PG Care Time/CCT Total # of Minutes Spent Total Time Spent with Patient: Total time spent is greater than 50% in coordination of care (as documented) at patient's floor/unit and/or counseling patient: Coding Level of Care Code 37297 SUB INP/OBS CARE 3/50MIN Diagnoses Closed fracture of right hip S72.001A Encounter type: initial encounter Acute respiratory failure with hypoxia J96.01 GERD (gastroesophageal reflux disease) K21.9 Hypertension I10 (1) Closed fracture of right hip Encounter type: initial encounter Qualified Code(s): S72.001A - Fracture of unspecified part of neck of right femur, initial encounter for closed fracture
[2023-05-12] MEDS: methylPREDNISolone 40 MG in SYRINGE 0 ML IV SCH (04:53)
--- NOTE | 2023-05-12 06:30 | Electrocardiogram Report ---
Test Reason : Blood Pressure : / mmHG Vent. Rate : 092 BPM Atrial Rate : 092 BPM P-R Int : 212 ms QRS Dur : 156 ms QT Int : 428 ms P-R-T Axes : 070 -49 109 degrees QTc Int : 529 ms Poor data quality, interpretation may be adversely affected Sinus rhythm with 1st degree A-V block Biatrial enlargement Left axis deviation Left bundle branch block Abnormal ECG When compared with ECG of 07-MAY-2023 22:57, No significant change was found Confirmed by Thee Martinez ([id number]) on 05/12/2023 6:29:57 AM Referred By: REFERRED SELF Confirmed By:Thee Martinez
[2023-05-12 07:04] LABS: Basophils # (auto) 0.01 K/uL (0.00-0.20); Basophils % (auto) 0.1 %; Hematocrit (blood only) 39.1 % (37.0-47.0); Hemoglobin 13.8 g/dl (12.0-16.0); Immature Granulocytes # (auto) 0.06 K/uL (0.01-0.20); Immature Granulocytes % (auto) 0.5 %; Lymphocytes # (auto) 0.91 K/uL (1.20-3.40); Lymphocytes % (auto) 7.2 %; Mean Corpuscular Hemoglobin 31.1 pg (25.0-34.0); Mean Corpuscular Hgb Conc 35.3 g/dL (32.0-36.0); Mean Corpuscular Volume 88.1 fL (80.0-100.0); Monocytes # (auto) 0.77 K/uL (0.11-0.59); Monocytes % (auto) 6.1 %; Neutrophils # (auto) 10.88 K/uL (1.40-6.50); Neutrophils % (auto) 86.1 %; Platelet Count 179 K/uL (130-400); RDW Coefficient of Variation 12.6 % (11.5-14.5); Red Blood Count 4.44 M/uL (4.20-5.40); White Blood Count 12.63 K/ul (4.8-10.8)
[2023-05-12 07:39] LABS: BUN Creatinine Ratio 60.3 (10-20); Calcium 9.4 mg/dl (8.6-10.3); Creatinine Clr Calc Pharmacy 64.7 ml/min; Est GFR (African American) 94.7 ml/min; Est GFR (Non-African American) 81.7 ml/min; Potassium 3.3 mmol/L (3.5-5.1)
[2023-05-12] MEDS: PIPERACILLIN/TAZOBACTAM 4.5 GM in DEXTROSE 5% MINI-B 100 ML IV SCH (08:40)
[2023-05-12] MEDS: BETAXOLOL HCL 0.25% OPB SCH (08:51)
[2023-05-12] MEDS: ASPIRIN 81 MG ECTAB PO SCH (08:51)
[2023-05-12] MEDS: amLODIPine BESYLATE 5 MG TAB PO SCH (08:51)
[2023-05-12] MEDS: METOPROLOL TARTRATE 25 MG TAB PO SCH (08:52)
[2023-05-12] MEDS: FUROSEMIDE 40 MG/4 ML VIAL IV SCH (09:09)
[2023-05-12] MEDS ORDERED: POTASSIUM CHLORIDE CRTAB 20 MEQ TABCR PO STA (10:00)
--- NOTE | 2023-05-12 14:17 | Discharge Summary ---
Date of Service May 12, 2023 Admission HPI Per Admitting Provider The patient is an 87-year-old female with a past medical history including chronic low back pain, hyperlipidemia, GERD, hypertension, glaucoma, B12 deficiency, GERD and constipation. The patient presents to the emergency department due to symptoms as noted above. X-ray of pelvis and hip show a closed right hip fracture Additional imaging: CT head shows chronic changes, CT cervical spine shows chronic degeneration X-ray of chest is negative From the ED the patient received the following: Morphine sulfate 4 mg IV Principal Diagnosis Mechanical fall, closed right hip fracture, status post open reduction internal fixation right hip fracture, acute hypoxic respiratory failure, suspected acute diastolic CHF Discharge Exam General-alert and oriented x1. Baseline dementia. No fevers, no chills HEENT-head atraumatic and normocephalic, pupils equal and reactive to light, extraocular muscles intact Neck-no lymphadenopathy or thyromegaly, trachea midline Chest-clear to auscultation. No rhonchi rales or wheezing . Cardiac-regular rate and rhythm, normal S1 and S2 Abdomen-normal bowel sounds, nontender, no hepatosplenomegaly Extremities-right hip discomfort postoperatively. Surgical site intact Neuro-cranial nerves II through XII intact, motor and sensory function within normal limits, strength symmetrical , no focal deficits Psych-alert and oriented x1. Baseline severe dementia Discharge Data Allergies Allergy/AdvReac Type Severity Reaction Status Date / Time donepezil [From Aricept] Allergy Unknown Unknown Verified 05/08/23 02:43 codeine AdvReac Intermediate SEVERE Verified 05/08/23 02:43 NAUSEA clarithromycin AdvReac Unknown PT DOES Verified 05/08/23 02:43 NOT TOLERATE WELL Consultations 05/08/23 01:17 ED Decision to Admit Stat 05/08/23 02:48 Consult Orthopedic Surgery Routine Procedures Performed Operation Date: 05/09/23 07:30 Actual Procedures p Right Femoral Neck Open Reduction Internal Fixation(Right) - Melvin Martinez DO Ordered Studies 05/07/23 23:12 CT cervical spine wo con Stat CT head/brain wo con Stat 05/08/23 10:30 CT abd pelvis IV con only Stat 05/09/23 FL hip RT 2-3V Routine Hospital Course (1) Closed fracture of right hip: Orthopedic consultation appreciated. Open reduction internal fixation right hip fracture completed on May 09, postoperative day #3. Supportive care. Daily lab (2) Acute respiratory failure with hypoxia: due to combined congestive heart failure and aspiration of gastric contents. Atelectasis could also be playing a role. Will keep lungs dry with parenteral Lasix. Cardiac echo report noted. Normal ejection fraction. IV fluids have been discontinued. Will wean oxygen oxygen off as tolerated. The patient was given proper instruction on use of incentive spirometry (3) GERD (gastroesophageal reflux disease): Stable. Continue PPI therapy (4) Hypertension: Stable. Continue metoprolol. Amlodipine on hold Plan discharge to [facility] today, May 12 Total Time Total Time Spent Total Time Spent (In Minutes): 45 minutes Discharge Plan Discharge Items Patient Disposition: Transfer [facility] Reason For Visit: CLOSED RIGHT HIP FRACTURE Discharge Diagnosis: Mechanical fall, closed right hip fracture, status post open reduction internal fixation right hip fracture, acute hypoxic respiratory failure, acute diastolic CHF Condition on Discharge: Good Activity: Resume your previous activity Non-emergency contact: Primary Care Provider Call non-emergency contact if: you have any medication questions and your sympto ms worsen Follow-up/Referrals: Mary Gant [Primary Care Provider] - Diet: Regular and Heart Healthy Addtl Attending Provider Instructions: Continue oxygen at 2 L/min per nasal cannula. Wean off as tolerated. Addtl Powdered Sugar Supervisor Provider Instructions: Things to Watch Out For -Go to the Emergency Room if you have sudden onset of chest pain, shortness of breath, or uncontrollable pain. -Call the orthopedics clinic immediately if you have a sudden increase in the amount of wound drainage or the drainage becomes thick, yellow or green, or foul-smelling. -For routine questions regarding your hip surgery, call the orthopedics clinic at [phone] during regular business hours (8am-5pm). For urgent issues after regular business hours, you may call the clinic to be connected to the on-call physician. Dressings -A special waterproof, silver-impregnated dressing was placed on your hip. Keep this dressing in place for 1 week after surgery. You may shower with the waterproof dressing in place, but do not soak the dressing in the bathtub or pool. -One week after surgery, you may remove the waterproof dressing. You may continue to shower, and let water run BRIEFLY over the incision, but do not soak the incision in the bathtub or pool for 2 weeks. You may also gently clean the incision with mild soap and water; pat the incision dry after cleaning-do not rub the incision. Apply a new dressing daily thereafter. Weight Bearing -You may toe touch weight bear on your operative leg. Use a walker for support and balance. Followup -You will need to follow-up with Dr. Martinez in orthopedic surgery clinic 10- 14 days after surgery. Please call [facility] [place] at [phone] to make an appointment. Pending Studies at Discharge: No Stand-Alone Forms: My [facility] Skilled Items Patient informed of condition?: Yes DNR: Yes Discharge Level of Care: Skilled Communicable Disease: No Discharge Prognosis: Improving Lines: None Urinary Catheter: No Medications and DC Order Prescriptions: New furosemide 40 mg tablet 40 mg PO DAILY Qty: 1 0RF potassium chloride 10 mEq capsule, extended release 10 meq PO DAILY Qty: 1 0RF amoxicillin-pot clavulanate 875-125 mg Tablet 1 tab PO BIDM Qty: 0 0RF nitroglycerin [Nitrostat] 0.4 mg Tablet, Sublingual 0.4 mg sublingual UD PRNQty: 0 0RF metoprolol tartrate 25 mg Tablet 25 mg PO BID Qty: 0 0RF amlodipine [Norvasc] 5 mg Tablet 5 mg PO QAM Qty: 0 0RF Continued Betoptic S 0.25 % drops,suspension 1 drp OPB BID acetaminophen 650 mg Suppository [address] Q4H PRN (Reason: Fever Or Pain) Rx Instructions: If unable to take po. atorvastatin 20 mg tablet 20 mg PO QPM polyethylene glycol 3350 [Miralax] 17 gram Powder In Packet 17 g PO DAILY cyanocobalamin (vitamin B-12) [Vitamin B-12] 1,000 mcg Tablet 1,000 mcg PO DAILY amlodipine 5 mg tablet 5 mg PO DAILY Rx Instructions: Take with 2.5 mg tab = 7.5 mg aspirin [Aspir-Low] 81 mg Tablet,Delayed Release (Dr/Ec) 81 mg PO DAILY acetaminophen [Tylenol Extra Strength] 500 mg Tablet 500 mg PO TID Epsom Salt (laxative) 495 mg/5 gram Granules 1 applic TOPICAL DIRECTED PRN (Reason: .ingrown toenail) famotidine 20 mg tablet 20 mg PO HS triamcinolone acetonide 0.1 % paste 1 applic mucous membrane QID PRN (Reason: .lower lip discomfort) bisacodyl [Dulcolax (bisacodyl)] 10 mg Suppository [address] .Q48HR PRN (Reason: Constipation) pantoprazole 40 mg tablet,delayed release (DR/EC) 40 mg PO DAILY nitroglycerin [Nitrostat] 0.4 mg Tablet, Sublingual 0.4 mg sublingual DIRECTED PRN (Reason: .chest pain) docusate sodium [Colace] 100 mg Capsule 100 mg PO DAILY calcium carbonate [Tums 500] 500 mg calcium (1,250 mg) Tablet,Chewable 500 mg PO DIRECTED PRN (Reason: .HEART BURN) Rx Instructions: May take 2-4 tabs daily melatonin 1 mg Tablet 1 mg PO HS PRN (Reason: Insomnia) metoprolol tartrate 25 mg tablet 25 mg PO BID Centrum Silver 0.4 mg-300 mcg- 250 mcg Tablet 1 tab PO DAILY diclofenac sodium [Voltaren] 1 % Gel 4 g TOPICAL DAILY PRN (Reason: .shoulder pain) cholecalciferol (vitamin D3) [Vitamin D3] 50 mcg (2,000 unit) Tablet 50 mcg PO DAILY Discontinued amoxicillin 500 mg capsule 2,000 mg PO DIRECTED Rx Instructions: Take 1 hr before dental procedure. amlodipine 2.5 mg tablet 2.5 mg PO DAILY Rx Instructions: Take with a 5 mg tab metronidazole 500 mg tablet 500 mg PO DIRECTED Rx Instructions: One hour before GI procedures. cephalexin 500 mg capsule 2,000 mg PO DIRECTED PRN (Reason: .prophylaxis) Rx Instructions: Take 1 hr before any skin procedure. Discharge Orders: Discharge Order (Routine); Ordered 05/12/23 Ordered By: Star Kim Admission Data Admit Date/Time: 05/08/23 01:53 Attending Provider: Star Kim Admit Provider: Bola Nazario Primary Care Provider: Mary Gant Other Providers: Bola Nazario ; Nestor Cali Coding Level of Care Code 86102 INP/OBS DISCH >30 MIN Diagnoses Closed fracture of right hip S72.001A Encounter type: initial encounter Acute respiratory failure with hypoxia J96.01 GERD (gastroesophageal reflux disease) K21.9 Hypertension I10
[2023-05-12] MEDS ORDERED: AMOXICILLIN/CLAVULANATE 875 MG TAB PO SCH (17:00)
== END 2023-05-12 16:58 | DRG 480 ==
LOC: ED 22:45 → SUATTDRO 05-08 01:53 → 3W 05-08 01:53